=== PATIENT | female | born 1990 | race Caucasian/White ===

== ENCOUNTER 2017-10-13 01:53 | Inpatient (IN) | payer OTHER ==
[2017-10-13] MEDS: CEFEPIME 2GM/50 ML (PMX) 50 ML IVPB (02:51)
[2017-10-13] MEDS: SOD CHLORIDE 0.9% 1,000 ML IV ×3 (02:52→04:11)
[2017-10-13] MEDS: HYDROmorphONE 1 MG/ML SYG IV (02:52)
[2017-10-13] MEDS: ONDANSETRON 4 MG INJ IV (02:52)
[2017-10-13 03:02] LABS: ABNORMAL IP MESSAGE 1; HEMATOCRIT 26.3 % (37.0-47.0); HEMOGLOBIN 8.2 g/dl (12.0-16.0); MEAN CORPUSCULAR HEMOGLOBIN 27.2 pg (29.0-33.0); MEAN CORPUSCULAR HGB CONC 31.2 g/dl (32.0-37.0); MEAN CORPUSCULAR VOLUME 87.4 fl (82.0-101.0); MEAN PLATELET VOLUME 8.4 fl (7.4-10.4); PLATELET COUNT 548 10^3/UL (140-415); RED BLOOD COUNT 3.01 10^6/ul (4.20-5.40); RED CELL DISTRIBUTION WIDTH 16.2 % (11.5-14.5)
[2017-10-13 03:02] LABS: WHITE BLOOD COUNT 21.6 10^3/ul (4.8-10.8)
[2017-10-13] MEDS: VANCOMYCIN 1 GM (PMX) 250 ML IVPB (03:07)
[2017-10-13 03:08] LABS: ADD MAN DIFF? YES; POSITIVE DIFF @See below
[2017-10-13 03:21] LABS: PROTIME 15.4 Sec (11.9-14.9); PT RATIO 1.2
[2017-10-13 03:22] LABS: PARTIAL THROMBOPLASTIN TIME 45.1 Sec (25.0-35.0)
[2017-10-13 03:43] LABS: ALANINE AMINOTRANSFERASE 32 IU/L (13-69); ALBUMIN 3.2 g/dl (3.3-4.9); ALBUMIN/GLOBULIN RATIO 0.82; ALKALINE PHOSPHATASE 85 IU/L (42-121); ANION GAP 15 (8-16); ASPARTATE AMINO TRANSFERASE 49 IU/L (15-46); BILIRUBIN,INDIRECT 0.1 mg/dl (0-1.1); BILIRUBIN,TOTAL 0.1 mg/dl (0.2-1.3); BLOOD UREA NITROGEN 5 mg/dl (7-20); CARBON DIOXIDE 28 mmol/L (21-31); CHLORIDE 100 mmol/L (97-110); CREATININE 0.63 mg/dl (0.44-1.00); GLUCOSE 99 mg/dl (70-220); POTASSIUM 3.4 mmol/L (3.5-5.1); SODIUM 140 mmol/L (135-144); TOTAL PROTEIN 7.1 g/dl (6.1-8.1)
[2017-10-13 04:02] LABS: BAND NEUTROPHILS #M 1.2 10^3/ul (0.0-0.6); BAND NEUTROPHILS % (M) 6 % (0-4); EOSINOPHILS % (M) 28 % (0-7); LYMPHOCYTES #M 3.8 10^3/ul (0.8-2.9); LYMPHOCYTES % (M) 18 % (15-51); PLATELET ESTIMATE INCREASED; SEG NEUT #M 10.8 10^3/ul (1.7-7.5); SEGMENTED NEUTROPHILS (M) % 49 % (39-77)
[2017-10-13] MEDS: IOHEXOL 300MG/ML 150 ML BTL (04:23)
[2017-10-13] MEDS: SOD CHLORIDE 0.9% 100 ML (04:23)
[2017-10-13] MEDS ORDERED: VANCOMYCIN IV PER PHARMACY XX (04:30)
[2017-10-13] MEDS ORDERED: ONDANSETRON 4 MG INJ IV (04:30)
[2017-10-13] MEDS ORDERED: ONDANSETRON 4 MG TAB PO (04:30)
[2017-10-13] MEDS ORDERED: ACETAMINOPHEN 325 MG TAB PO (04:30)
[2017-10-13] MEDS ORDERED: NACL 0.9% 3 ML SYG IV (04:30)
[2017-10-13 05:04] LABS: IMMEDIATE SPIN CROSSMATCH 1 8
[2017-10-13] MEDS: PIPER-TAZO 3.375 GM IV (PMX) 100 ML IVPB ×3 (06:30→21:17)
[2017-10-13] MEDS: LORAZEPAM 2 MG INJ IV (08:30)
[2017-10-13] MEDS: VANCOMYCIN 1 GM 250 ML IVPB ×2 (10:00→21:17)
[2017-10-13 14:09] LABS: WHITE BLOOD COUNT 16.5 10^3/ul (4.8-10.8)
[2017-10-13 14:09] LABS: ABNORMAL IP MESSAGE 1; HEMATOCRIT 21.1 % (37.0-47.0); MEAN CORPUSCULAR HEMOGLOBIN 28.5 pg (29.0-33.0); MEAN CORPUSCULAR HGB CONC 32.7 g/dl (32.0-37.0); MEAN CORPUSCULAR VOLUME 87.2 fl (82.0-101.0); MEAN PLATELET VOLUME 8.5 fl (7.4-10.4); PLATELET COUNT 370 10^3/UL (140-415); POSITIVE DIFF @See below; RED BLOOD COUNT 2.42 10^6/ul (4.20-5.40); RED CELL DISTRIBUTION WIDTH 15.6 % (11.5-14.5)
[2017-10-13 14:12] LABS: HEMOGLOBIN 6.9 g/dl (12.0-16.0)
[2017-10-13 14:13] LABS: ADD MAN DIFF? YES
[2017-10-13 14:17] LABS: HEMOGLOBIN A1C 5.2 % (0-5.9)
[2017-10-13 14:36] LABS: CHOL/HDL RATIO 4.9 RATIO; CHOLESTEROL 103 mg/dl (100-200); HDL CHOLESTEROL 21 mg/dl (33-83); LDL CHOLESTEROL,CALCULATED 68 mg/dl; TRIGLYCERIDES 69 mg/dl (0-149)
[2017-10-13 14:36] LABS: MAGNESIUM 1.7 mg/dl (1.7-2.5)
[2017-10-13 15:38] LABS: HEMATOCRIT 21.8 % (37.0-47.0); HEMOGLOBIN 7.1 g/dl (12.0-16.0)
[2017-10-13 16:31] LABS: CARCINOEMBRYONIC ANTIGEN < 0.3 ng/ml (0.0-5.0)
[2017-10-13] MEDS: morphine 2 MG INJ IV (17:49)
[2017-10-13 18:02] LABS: CANCER ANTIGEN 125 < 5.5 U/ml (0.0-35.0)
[2017-10-13 18:04] LABS: CANCER ANTIGEN 19-9 < 1.4 U/ml (0.0-37.0)
[2017-10-13] MEDS ORDERED: ONDANSETRON 4 MG INJ (19:11)
[2017-10-13] MEDS ORDERED: LIDOCAINE 1% (MDV) 20 ML INJ (19:12)
[2017-10-13 20:51] LABS: AADO2 Arterial 20.7 mmHg (7.0-24.0); Allen Test ACCEPTAB; Arterial Base Excess 0.4 mmol/L (-3.0-3); Arterial Blood Gas Oxygen Sat 98.7 mmHG (95.0-98.0); Arterial COHb 0.3 % (0.0-3.0); Arterial Fraction of Oxyhgb 97.7 % (93.0-99.0); Arterial HCO3 23.5 mmol/L (22.0-26.0); Arterial MetHb 0.7 % (0.0-1.5); Arterial Total Hemglobin 7.8 g/dl (12.0-18.0); Arterial pCO2 31.6 mmhg (35-45); MODE NASAL CANNULA; Site Right Radial
[2017-10-13] MEDS: NORepinephrine 8MG/250 ML (PMX 250 ML IV (21:25)
[2017-10-13 22:22] LABS: INR 1.38; PROTIME 17.2 Sec (11.9-14.9); PT RATIO 1.3
[2017-10-13 22:23] LABS: PARTIAL THROMBOPLASTIN TIME 43.1 Sec (25.0-35.0)
[2017-10-13 22:24] LABS: ANION GAP 11 (8-16); BLOOD UREA NITROGEN 4 mg/dl (7-20); CALCIUM 7.9 mg/dl (8.4-10.2); CARBON DIOXIDE 24 mmol/L (21-31); CHLORIDE 104 mmol/L (97-110); GLUCOSE 148 mg/dl (70-220); MAGNESIUM 1.6 mg/dl (1.7-2.5); PHOSPHORUS 3.7 mg/dl (2.5-4.9); POTASSIUM 4.1 mmol/L (3.5-5.1); SODIUM 135 mmol/L (135-144)
[2017-10-13 23:19] LABS: ANISOCYTOSIS 1+ (0-0); BAND NEUTROPHILS #M 0.1 10^3/ul (0.0-0.6); BAND NEUTROPHILS % (M) 1 % (0-4); EOSINOPHILS % (M) 26 % (0-7); ERYTHROBLAST% (NRBC) (M) 1 % (0-0); HYPOCHROMASIA 2+ (0-0); LYMPHOCYTES #M 2.8 10^3/ul (0.8-2.9); LYMPHOCYTES % (M) 17 % (15-51); MONOCYTE #M 1.1 10^3/ul (0.3-0.9); MONOCYTES % (M) 7 % (0-11); PLATELET ESTIMATE NORMAL; POIKILOCYTOSIS 1+ (0-0); POLYCHROMASIA 3+ (0-0); SEG NEUT #M 8.1 10^3/ul (1.7-7.5); SEGMENTED NEUTROPHILS (M) % 49 % (39-77); SMUDGE%M 1 % (0-0)
[2017-10-13 23:29] LABS: ABNORMAL IP MESSAGE 1; HEMATOCRIT 18.8 % (37.0-47.0); MEAN CORPUSCULAR HEMOGLOBIN 29.4 pg (29.0-33.0); MEAN CORPUSCULAR HGB CONC 33.5 g/dl (32.0-37.0); MEAN CORPUSCULAR VOLUME 87.9 fl (82.0-101.0); MEAN PLATELET VOLUME 8.8 fl (7.4-10.4); PLATELET COUNT 359 10^3/UL (140-415); RED BLOOD COUNT 2.14 10^6/ul (4.20-5.40); RED CELL DISTRIBUTION WIDTH 14.7 % (11.5-14.5)
[2017-10-13 23:29] LABS: WHITE BLOOD COUNT 20.7 10^3/ul (4.8-10.8)
[2017-10-13 23:33] LABS: POSITIVE DIFF @See below
[2017-10-13 23:36] LABS: ADD MAN DIFF? YES; HEMOGLOBIN 6.3 g/dl (12.0-16.0)
[2017-10-14] MEDS: FUROSEMIDE 20 MG INJ IV (03:43)
[2017-10-14] MEDS: VANCOMYCIN 1 GM 250 ML IVPB ×2 (03:44→10:00)
[2017-10-14] MEDS: PIPER-TAZO 3.375 GM IV (PMX) 100 ML IVPB ×2 (06:17→20:07)
[2017-10-14 07:17] LABS: ABNORMAL IP MESSAGE 1; HEMATOCRIT 24.6 % (37.0-47.0); HEMOGLOBIN 8.5 g/dl (12.0-16.0); MEAN CORPUSCULAR HEMOGLOBIN 29.3 pg (29.0-33.0); MEAN CORPUSCULAR HGB CONC 34.6 g/dl (32.0-37.0); MEAN CORPUSCULAR VOLUME 84.8 fl (82.0-101.0); MEAN PLATELET VOLUME 8.5 fl (7.4-10.4); PLATELET COUNT 247 10^3/UL (140-415)
[2017-10-14 07:17] LABS: WHITE BLOOD COUNT 19.3 10^3/ul (4.8-10.8)
[2017-10-14 07:31] LABS: IRON 25 ug/dl (35-150)
[2017-10-14 07:32] LABS: ALANINE AMINOTRANSFERASE 28 IU/L (13-69); ALBUMIN 2.2 g/dl (3.3-4.9); ALKALINE PHOSPHATASE 51 IU/L (42-121); ANION GAP 11 (8-16); ASPARTATE AMINO TRANSFERASE 47 IU/L (15-46); BILIRUBIN,INDIRECT 0.3 mg/dl (0-1.1); BILIRUBIN,TOTAL 0.3 mg/dl (0.2-1.3); BLOOD UREA NITROGEN 10 mg/dl (7-20); CALCIUM 7.8 mg/dl (8.4-10.2); CARBON DIOXIDE 24 mmol/L (21-31); CHLORIDE 104 mmol/L (97-110); CREATININE 1.16 mg/dl (0.44-1.00); GLUCOSE 94 mg/dl (70-220); POTASSIUM 4.3 mmol/L (3.5-5.1); SODIUM 135 mmol/L (135-144); TOTAL PROTEIN 5.3 g/dl (6.1-8.1)
[2017-10-14 07:37] LABS: ADD MAN DIFF? YES; POSITIVE DIFF @See below
[2017-10-14 07:40] LABS: % IRON SATURATION 14 % SAT (22-52); TOTAL IRON BINDING CAPACITY 184 ug/dl (241-421)
[2017-10-14 08:05] LABS: FERRITIN 88.9 ng/ml (6.2-137.0)
[2017-10-14 10:14] LABS: VANCOMYCIN,TROUGH 31.6 ug/ml (10.0-20.0)
[2017-10-14 10:22] LABS: ANISOCYTOSIS 1+ (0-0); BAND NEUTROPHILS #M 0.9 10^3/ul (0.0-0.6); BAND NEUTROPHILS % (M) 5 % (0-4); EOSINOPHILS % (M) 16 % (0-7); LYMPHOCYTES % (M) 16 % (15-51); MICROCYTOSIS 1+ (0-0); MONOCYTE #M 1.9 10^3/ul (0.3-0.9); MONOCYTES % (M) 10 % (0-11); PLATELET ESTIMATE NORMAL; POLYCHROMASIA 3+ (0-0); REACTIVE LYMPHOCYTES #M 0.1 10^3/ul (0.0-0.0); REACTIVE LYMPHOCYTES% (M) 1 % (0-0); SEG NEUT #M 10.2 10^3/ul (1.7-7.5); SEGMENTED NEUTROPHILS (M) % 52 % (39-77); SMUDGE%M 5 % (0-0)
[2017-10-14 13:07] LABS: HEMATOCRIT 24.8 % (37.0-47.0); HEMOGLOBIN 8.5 g/dl (12.0-16.0)
[2017-10-14 16:56] LABS: HEMATOCRIT 23.8 % (37.0-47.0); HEMOGLOBIN 8.2 g/dl (12.0-16.0)
[2017-10-14] MEDS: SOD CHLORIDE 0.9% 1,000 ML IV (20:07)
[2017-10-14] MEDS: LORAZEPAM 2 MG INJ IV (21:11)
[2017-10-14 22:44] LABS: HEMATOCRIT 23.6 % (37.0-47.0); HEMOGLOBIN 8.1 g/dl (12.0-16.0)
[2017-10-15 04:37] LABS: ADD MAN DIFF? NO
[2017-10-15 04:42] LABS: ABNORMAL IP MESSAGE 1; BASOPHIL # 0.1 10^3/ul (0.0-0.1); BASOPHILS % 0.3 % (0.0-2.0); EOSINOPHILS # 6.3 10^3/ul (0.0-0.5); EOSINOPHILS % 26.9 % (0.0-7.0); HEMATOCRIT 24.4 % (37.0-47.0); HEMOGLOBIN 8.3 g/dl (12.0-16.0); LYMPHOCYTES # 3.2 10^3/ul (0.8-2.9); LYMPHOCYTES % 13.7 % (15.0-51.0); MEAN CORPUSCULAR HEMOGLOBIN 28.9 pg (29.0-33.0); MEAN PLATELET VOLUME 8.9 fl (7.4-10.4); MONOCYTE # 1.7 10^3/ul (0.3-0.9); MONOCYTES % 7.3 % (0.0-11.0); NEUTROPHIL # 11.8 10^3/ul (1.6-7.5); NEUTROPHILS % 50.8 % (39.0-77.0); PLATELET COUNT 303 10^3/UL (140-415); RED BLOOD COUNT 2.87 10^6/ul (4.20-5.40); RED CELL DISTRIBUTION WIDTH 16.3 % (11.5-14.5)
[2017-10-15 04:42] LABS: WHITE BLOOD COUNT 23.3 10^3/ul (4.8-10.8)
[2017-10-15 05:04] LABS: POSITIVE DIFF @See below
[2017-10-15 05:16] LABS: VANCOMYCIN,RANDOM 18.2 ug/ml
[2017-10-15 05:16] LABS: ANION GAP 11 (8-16); BLOOD UREA NITROGEN 17 mg/dl (7-20); CALCIUM 8.3 mg/dl (8.4-10.2); CARBON DIOXIDE 24 mmol/L (21-31); CHLORIDE 102 mmol/L (97-110); CREATININE 2.76 mg/dl (0.44-1.00); GLUCOSE 96 mg/dl (70-220); MAGNESIUM 1.7 mg/dl (1.7-2.5); PHOSPHORUS 4.2 mg/dl (2.5-4.9); POTASSIUM 4.4 mmol/L (3.5-5.1); SODIUM 133 mmol/L (135-144)
[2017-10-15] MEDS: morphine 2 MG INJ IV ×2 (06:24→17:16)
[2017-10-15] MEDS ORDERED: VANCOMYCIN 1 GM 250 ML IVPB (11:00)
[2017-10-15 11:42] LABS: CANCER ANTIGEN 15-3 4 U/mL (<32)
[2017-10-15 12:10] LABS: HEMATOCRIT 23.1 % (37.0-47.0); HEMOGLOBIN 7.7 g/dl (12.0-16.0)
[2017-10-15] MEDS: SOD CHLORIDE 0.9% 1,000 ML IV ×2 (12:14→15:30)
[2017-10-15 15:30] LABS: HEMATOCRIT 20.9 % (37.0-47.0); HEMOGLOBIN 7.1 g/dl (12.0-16.0)
[2017-10-15 18:22] LABS: ADD UMIC YES; UR ASCORBIC ACID NEGATIVE (NEGATIVE); UR BILIRUBIN (Dip) NEGATIVE (NEGATIVE); UR BLOOD (Dip) 1+ mg/dL (NEGATIVE); UR CLARITY SLIGHTLY CLOUDY (CLEAR); UR COLOR STRAW (YELLOW); UR GLUCOSE (Dip) NEGATIVE (NEGATIVE); UR KETONES (Dip) NEGATIVE (NEGATIVE); UR LEUKOCYTE ESTERASE (Dip) NEGATIVE Leu/ul (NEGATIVE); UR NITRITE (Dip) NEGATIVE (NEGATIVE); UR RBC 1 /HPF (0-5); UR SPECIFIC GRAVITY (Dip) 1.004 (1.003-1.030); UR SQUAMOUS EPITHELIAL CELL FEW /HPF (FEW); UR TOTAL PROTEIN (Dip) NEGATIVE (NEGATIVE); UR UROBILINOGEN (Dip) NEGATIVE (NEGATIVE); UR WBC 2 /HPF (0-5)
[2017-10-15 18:33] LABS: SODIUM,URINE RANDOM 18 mmol/L (30-90)
[2017-10-15 18:33] LABS: CREATININE,URINE RANDOM 41.09 mg/dl (20-320)
[2017-10-15 22:36] LABS: HEMATOCRIT 22.6 % (37.0-47.0); HEMOGLOBIN 7.7 g/dl (12.0-16.0)
[2017-10-16] MEDS: morphine 2 MG INJ IV ×3 (02:12→20:40)
[2017-10-16 05:41] LABS: ADD MAN DIFF? NO
[2017-10-16 05:46] LABS: WHITE BLOOD COUNT 20.3 10^3/ul (4.8-10.8)
[2017-10-16 05:46] LABS: ABNORMAL IP MESSAGE 1; BASOPHILS % 0.1 % (0.0-2.0); EOSINOPHILS # 5.2 10^3/ul (0.0-0.5); EOSINOPHILS % 25.8 % (0.0-7.0); HEMATOCRIT 22.1 % (37.0-47.0); HEMOGLOBIN 7.3 g/dl (12.0-16.0); LYMPHOCYTES # 2.4 10^3/ul (0.8-2.9); LYMPHOCYTES % 11.8 % (15.0-51.0); MEAN CORPUSCULAR HEMOGLOBIN 29.2 pg (29.0-33.0); MEAN CORPUSCULAR VOLUME 88.4 fl (82.0-101.0); MEAN PLATELET VOLUME 8.5 fl (7.4-10.4); MONOCYTE # 1.5 10^3/ul (0.3-0.9); MONOCYTES % 7.4 % (0.0-11.0); NEUTROPHIL # 10.9 10^3/ul (1.6-7.5); NEUTROPHILS % 53.8 % (39.0-77.0); PLATELET COUNT 276 10^3/UL (140-415); RED CELL DISTRIBUTION WIDTH 16.9 % (11.5-14.5)
[2017-10-16 05:54] LABS: POSITIVE DIFF @See below
[2017-10-16 06:25] LABS: ANION GAP 11 (8-16); BLOOD UREA NITROGEN 24 mg/dl (7-20); CARBON DIOXIDE 24 mmol/L (21-31); CHLORIDE 104 mmol/L (97-110); CREATININE 3.85 mg/dl (0.44-1.00); GLUCOSE 104 mg/dl (70-220); MAGNESIUM 1.8 mg/dl (1.7-2.5); PHOSPHORUS 5.2 mg/dl (2.5-4.9); POTASSIUM 4.3 mmol/L (3.5-5.1); SODIUM 135 mmol/L (135-144)
[2017-10-16] MEDS: SOD CHLORIDE 0.9% 1,000 ML IV ×2 (09:44→20:32)
[2017-10-17] MEDS: SOD CHLORIDE 0.9% 1,000 ML IV ×5 (01:30→23:22)
[2017-10-17] MEDS: morphine 2 MG INJ IV ×3 (01:58→20:48)
[2017-10-17 05:53] LABS: ADD MAN DIFF? NO
[2017-10-17 06:09] LABS: ABNORMAL IP MESSAGE 1; BASOPHILS % 0.2 % (0.0-2.0); EOSINOPHILS # 5.7 10^3/ul (0.0-0.5); HEMATOCRIT 22.3 % (37.0-47.0); HEMOGLOBIN 7.3 g/dl (12.0-16.0); LYMPHOCYTES # 2.2 10^3/ul (0.8-2.9); LYMPHOCYTES % 10.2 % (15.0-51.0); MEAN CORPUSCULAR HEMOGLOBIN 29.2 pg (29.0-33.0); MEAN CORPUSCULAR HGB CONC 32.7 g/dl (32.0-37.0); MEAN CORPUSCULAR VOLUME 89.2 fl (82.0-101.0); MEAN PLATELET VOLUME 8.9 fl (7.4-10.4); MONOCYTE # 1.6 10^3/ul (0.3-0.9); MONOCYTES % 7.4 % (0.0-11.0); NEUTROPHIL # 12.1 10^3/ul (1.6-7.5); NEUTROPHILS % 55.5 % (39.0-77.0); PLATELET COUNT 303 10^3/UL (140-415); RED CELL DISTRIBUTION WIDTH 16.9 % (11.5-14.5)
[2017-10-17 06:09] LABS: WHITE BLOOD COUNT 21.9 10^3/ul (4.8-10.8)
[2017-10-17 06:18] LABS: POSITIVE DIFF @See below
[2017-10-17 06:20] LABS: ANION GAP 13 (8-16); BLOOD UREA NITROGEN 28 mg/dl (7-20); CALCIUM 7.8 mg/dl (8.4-10.2); CARBON DIOXIDE 22 mmol/L (21-31); CHLORIDE 103 mmol/L (97-110); CREATININE 4.11 mg/dl (0.44-1.00); GLUCOSE 84 mg/dl (70-220); MAGNESIUM 1.8 mg/dl (1.7-2.5); PHOSPHORUS 5.7 mg/dl (2.5-4.9); POTASSIUM 4.8 mmol/L (3.5-5.1); SODIUM 133 mmol/L (135-144)
[2017-10-17] MEDS ORDERED: VANCOMYCIN IV PER PHARMACY XX (11:30)
[2017-10-17] MEDS: SOD CHLORIDE 0.9% 250 ML IV* (13:57)
[2017-10-17] MEDS: CEFEPIME 2GM/50 ML (PMX) 50 ML IVPB (17:50)
[2017-10-18 01:13] LABS: IMMEDIATE SPIN CROSSMATCH 1 4
[2017-10-18 11:04] LABS: ADD MAN DIFF? NO
[2017-10-18 11:16] LABS: WHITE BLOOD COUNT 15.4 10^3/ul (4.8-10.8)
[2017-10-18 11:16] LABS: ABNORMAL IP MESSAGE 1; BASOPHILS % 0.2 % (0.0-2.0); EOSINOPHILS # 4.6 10^3/ul (0.0-0.5); HEMATOCRIT 24.3 % (37.0-47.0); LYMPHOCYTES # 1.4 10^3/ul (0.8-2.9); LYMPHOCYTES % 9.3 % (15.0-51.0); MEAN CORPUSCULAR HEMOGLOBIN 28.7 pg (29.0-33.0); MEAN CORPUSCULAR HGB CONC 32.9 g/dl (32.0-37.0); MEAN CORPUSCULAR VOLUME 87.1 fl (82.0-101.0); MEAN PLATELET VOLUME 8.9 fl (7.4-10.4); MONOCYTE # 1.3 10^3/ul (0.3-0.9); MONOCYTES % 8.3 % (0.0-11.0); NEUTROPHILS % 51.8 % (39.0-77.0); PLATELET COUNT 319 10^3/UL (140-415); RED BLOOD COUNT 2.79 10^6/ul (4.20-5.40); RED CELL DISTRIBUTION WIDTH 16.7 % (11.5-14.5)
[2017-10-18 11:25] LABS: ANION GAP 12 (8-16); BLOOD UREA NITROGEN 30 mg/dl (7-20); CARBON DIOXIDE 20 mmol/L (21-31); CHLORIDE 106 mmol/L (97-110); CREATININE 3.95 mg/dl (0.44-1.00); GLUCOSE 86 mg/dl (70-220); MAGNESIUM 1.9 mg/dl (1.7-2.5); PHOSPHORUS 6.3 mg/dl (2.5-4.9); POTASSIUM 4.4 mmol/L (3.5-5.1); SODIUM 134 mmol/L (135-144)
[2017-10-18 11:32] LABS: EOSINOPHILS % 29.6 % (0.0-7.0); POSITIVE DIFF @See below
[2017-10-18] MEDS: SOD CHLORIDE 0.9% 1,000 ML IV ×2 (12:32→21:41)
[2017-10-18] MEDS: CEFEPIME 2GM/50 ML (PMX) 50 ML IVPB (13:35)
[2017-10-18] MEDS: morphine 2 MG INJ IV ×2 (14:10→22:53)
[2017-10-18 17:21] LABS: HEMATOCRIT 25.2 % (37.0-47.0); HEMOGLOBIN 8.4 g/dl (12.0-16.0)
[2017-10-18 17:53] LABS: INR 1.27; PROTIME 16.1 Sec (11.9-14.9); PT RATIO 1.3
[2017-10-18 18:12] LABS: PARTIAL THROMBOPLASTIN TIME 47.9 Sec (25.0-35.0)
[2017-10-19] MEDS: morphine 2 MG INJ IV ×3 (04:58→18:37)
[2017-10-19 06:15] LABS: ADD MAN DIFF? NO
[2017-10-19 06:19] LABS: ABNORMAL IP MESSAGE 1; BASOPHILS % 0.1 % (0.0-2.0); EOSINOPHILS # 5.9 10^3/ul (0.0-0.5); EOSINOPHILS % 40.2 % (0.0-7.0); HEMATOCRIT 21.1 % (37.0-47.0); LYMPHOCYTES # 1.6 10^3/ul (0.8-2.9); LYMPHOCYTES % 10.7 % (15.0-51.0); MEAN CORPUSCULAR HEMOGLOBIN 28.9 pg (29.0-33.0); MEAN CORPUSCULAR HGB CONC 33.2 g/dl (32.0-37.0); MEAN CORPUSCULAR VOLUME 87.2 fl (82.0-101.0); MEAN PLATELET VOLUME 8.8 fl (7.4-10.4); MONOCYTE # 1.2 10^3/ul (0.3-0.9); MONOCYTES % 8.4 % (0.0-11.0); NEUTROPHIL # 5.8 10^3/ul (1.6-7.5); PLATELET COUNT 326 10^3/UL (140-415); RED BLOOD COUNT 2.42 10^6/ul (4.20-5.40); RED CELL DISTRIBUTION WIDTH 16.3 % (11.5-14.5)
[2017-10-19 06:19] LABS: WHITE BLOOD COUNT 14.6 10^3/ul (4.8-10.8)
[2017-10-19 06:29] LABS: POSITIVE DIFF @See below
[2017-10-19 06:56] LABS: ANION GAP 11 (8-16)
[2017-10-19 06:58] LABS: BLOOD UREA NITROGEN 28 mg/dl (7-20); CALCIUM 7.6 mg/dl (8.4-10.2); CARBON DIOXIDE 20 mmol/L (21-31); CHLORIDE 108 mmol/L (97-110); CREATININE 3.57 mg/dl (0.44-1.00); GLUCOSE 100 mg/dl (70-220); MAGNESIUM 1.9 mg/dl (1.7-2.5); PHOSPHORUS 4.9 mg/dl (2.5-4.9); POTASSIUM 4.3 mmol/L (3.5-5.1); SODIUM 135 mmol/L (135-144)
[2017-10-19] MEDS: SOD CHLORIDE 0.9% 1,000 ML IV (10:57)
[2017-10-19] MEDS: SOD CHLORIDE 0.9% 250 ML IV* (11:00)
[2017-10-19] MEDS: CEFEPIME 2GM/50 ML (PMX) 50 ML IVPB (13:24)
[2017-10-20] MEDS: morphine 2 MG INJ IV ×4 (00:18→16:49)
[2017-10-20] MEDS: SOD CHLORIDE 0.9% 1,000 ML IV ×2 (01:34→20:45)
[2017-10-20 06:43] LABS: ADD MAN DIFF? NO
[2017-10-20 06:48] LABS: WHITE BLOOD COUNT 15.5 10^3/ul (4.8-10.8)
[2017-10-20 06:48] LABS: ABNORMAL IP MESSAGE 1; BASOPHILS % 0.1 % (0.0-2.0); EOSINOPHILS # 7.1 10^3/ul (0.0-0.5); EOSINOPHILS % 46.1 % (0.0-7.0); HEMATOCRIT 28.8 % (37.0-47.0); HEMOGLOBIN 9.5 g/dl (12.0-16.0); LYMPHOCYTES # 1.9 10^3/ul (0.8-2.9); LYMPHOCYTES % 12.4 % (15.0-51.0); MEAN CORPUSCULAR HEMOGLOBIN 28.6 pg (29.0-33.0); MEAN CORPUSCULAR VOLUME 86.7 fl (82.0-101.0); MEAN PLATELET VOLUME 8.5 fl (7.4-10.4); MONOCYTE # 1.1 10^3/ul (0.3-0.9); NEUTROPHIL # 5.2 10^3/ul (1.6-7.5); NEUTROPHILS % 33.6 % (39.0-77.0); PLATELET COUNT 363 10^3/UL (140-415); RED BLOOD COUNT 3.32 10^6/ul (4.20-5.40); RED CELL DISTRIBUTION WIDTH 16.3 % (11.5-14.5)
[2017-10-20 06:56] LABS: POSITIVE DIFF @See below
[2017-10-20 07:24] LABS: ANION GAP 13 (8-16); BLOOD UREA NITROGEN 25 mg/dl (7-20); CARBON DIOXIDE 20 mmol/L (21-31); CHLORIDE 108 mmol/L (97-110); CREATININE 2.99 mg/dl (0.44-1.00); GLUCOSE 91 mg/dl (70-220); MAGNESIUM 1.8 mg/dl (1.7-2.5); PHOSPHORUS 4.2 mg/dl (2.5-4.9); POTASSIUM 4.2 mmol/L (3.5-5.1); SODIUM 137 mmol/L (135-144)
[2017-10-20] MEDS: CEFEPIME 2GM/50 ML (PMX) 50 ML IVPB (13:26)
[2017-10-20] MEDS: AZTREONAM 1 GM/NS (PMX) 50 ML IVPB (16:44)
[2017-10-21] MEDS: AZTREONAM 1 GM/NS (PMX) 50 ML IVPB ×3 (00:06→20:32)
[2017-10-21] MEDS: morphine 2 MG INJ IV ×4 (02:17→22:52)
[2017-10-21 06:40] LABS: ADD MAN DIFF? NO
[2017-10-21 06:46] LABS: ABNORMAL IP MESSAGE 1; BASOPHILS % 0.1 % (0.0-2.0); EOSINOPHILS # 8.3 10^3/ul (0.0-0.5); EOSINOPHILS % 47.3 % (0.0-7.0); HEMATOCRIT 28.8 % (37.0-47.0); HEMOGLOBIN 9.6 g/dl (12.0-16.0); LYMPHOCYTES # 2.1 10^3/ul (0.8-2.9); MEAN CORPUSCULAR HEMOGLOBIN 28.7 pg (29.0-33.0); MEAN CORPUSCULAR HGB CONC 33.3 g/dl (32.0-37.0); MEAN CORPUSCULAR VOLUME 86.2 fl (82.0-101.0); MEAN PLATELET VOLUME 8.2 fl (7.4-10.4); MONOCYTE # 1.1 10^3/ul (0.3-0.9); MONOCYTES % 6.2 % (0.0-11.0); NEUTROPHIL # 5.9 10^3/ul (1.6-7.5); NEUTROPHILS % 33.5 % (39.0-77.0); PLATELET COUNT 377 10^3/UL (140-415); RED BLOOD COUNT 3.34 10^6/ul (4.20-5.40); RED CELL DISTRIBUTION WIDTH 16.1 % (11.5-14.5)
[2017-10-21 06:46] LABS: WHITE BLOOD COUNT 17.5 10^3/ul (4.8-10.8)
[2017-10-21 06:53] LABS: POSITIVE DIFF @See below
[2017-10-21 07:27] LABS: ANION GAP 13 (8-16); BLOOD UREA NITROGEN 24 mg/dl (7-20); CALCIUM 7.6 mg/dl (8.4-10.2); CARBON DIOXIDE 17 mmol/L (21-31); CHLORIDE 108 mmol/L (97-110); CREATININE 2.37 mg/dl (0.44-1.00); GLUCOSE 92 mg/dl (70-220); MAGNESIUM 1.7 mg/dl (1.7-2.5); PHOSPHORUS 3.2 mg/dl (2.5-4.9); POTASSIUM 4.1 mmol/L (3.5-5.1); SODIUM 134 mmol/L (135-144)
[2017-10-21] MEDS: DIPHENHYDRAMINE 25 MG CAP PO ×2 (07:55→20:32)
[2017-10-21] MEDS: SOD CHLORIDE 0.9% 1,000 ML IV ×2 (10:39→18:50)
[2017-10-22] MEDS: morphine 2 MG INJ IV ×3 (04:30→22:05)
[2017-10-22 06:23] LABS: ADD MAN DIFF? NO
[2017-10-22 06:33] LABS: ABNORMAL IP MESSAGE 1; BASOPHILS % 0.1 % (0.0-2.0); EOSINOPHILS # 8.6 10^3/ul (0.0-0.5); HEMATOCRIT 29.4 % (37.0-47.0); HEMOGLOBIN 9.6 g/dl (12.0-16.0); LYMPHOCYTES # 2.3 10^3/ul (0.8-2.9); LYMPHOCYTES % 12.9 % (15.0-51.0); MEAN CORPUSCULAR HEMOGLOBIN 28.7 pg (29.0-33.0); MEAN CORPUSCULAR HGB CONC 32.7 g/dl (32.0-37.0); MEAN CORPUSCULAR VOLUME 87.8 fl (82.0-101.0); MEAN PLATELET VOLUME 8.3 fl (7.4-10.4); MONOCYTE # 1.1 10^3/ul (0.3-0.9); MONOCYTES % 5.8 % (0.0-11.0); NEUTROPHIL # 5.8 10^3/ul (1.6-7.5); NEUTROPHILS % 32.4 % (39.0-77.0); PLATELET COUNT 398 10^3/UL (140-415); RED BLOOD COUNT 3.35 10^6/ul (4.20-5.40); RED CELL DISTRIBUTION WIDTH 16.4 % (11.5-14.5)
[2017-10-22 06:51] LABS: ANION GAP 13 (8-16); BLOOD UREA NITROGEN 21 mg/dl (7-20); CALCIUM 7.8 mg/dl (8.4-10.2); CARBON DIOXIDE 19 mmol/L (21-31); CHLORIDE 108 mmol/L (97-110); CREATININE 2.07 mg/dl (0.44-1.00); GLUCOSE 90 mg/dl (70-220); MAGNESIUM 1.6 mg/dl (1.7-2.5); POTASSIUM 4.3 mmol/L (3.5-5.1); SODIUM 136 mmol/L (135-144)
[2017-10-22 06:56] LABS: EOSINOPHILS % 47.7 % (0.0-7.0); POSITIVE DIFF @See below
[2017-10-22] MEDS: AZTREONAM 1 GM/NS (PMX) 50 ML IVPB (09:03)
[2017-10-22] MEDS: DIPHENHYDRAMINE 25 MG CAP PO ×3 (09:04→15:40)
[2017-10-22] MEDS: FAMOTIDINE 20 MG TAB PO (12:52)
[2017-10-22] MEDS: MEROPENEM 1 GM/50ML(PMX) 50 ML IVPB ×2 (12:52→21:40)
[2017-10-22] MEDS: LEVOFLOXACIN 750MG/D5W (PMX) 150 ML IVPB (14:22)
[2017-10-23] MEDS: morphine 2 MG INJ IV ×2 (05:30→12:10)
[2017-10-23 06:27] LABS: ADD MAN DIFF? NO
[2017-10-23 06:30] LABS: WHITE BLOOD COUNT 21.6 10^3/ul (4.8-10.8)
[2017-10-23 06:30] LABS: ABNORMAL IP MESSAGE 1; BASOPHILS % 0.2 % (0.0-2.0); EOSINOPHILS # 9.6 10^3/ul (0.0-0.5); HEMATOCRIT 30.3 % (37.0-47.0); HEMOGLOBIN 9.8 g/dl (12.0-16.0); LYMPHOCYTES # 2.6 10^3/ul (0.8-2.9); LYMPHOCYTES % 11.8 % (15.0-51.0); MEAN CORPUSCULAR HEMOGLOBIN 28.2 pg (29.0-33.0); MEAN CORPUSCULAR HGB CONC 32.3 g/dl (32.0-37.0); MEAN CORPUSCULAR VOLUME 87.3 fl (82.0-101.0); MEAN PLATELET VOLUME 8.3 fl (7.4-10.4); MONOCYTE # 1.7 10^3/ul (0.3-0.9); MONOCYTES % 7.7 % (0.0-11.0); NEUTROPHIL # 7.5 10^3/ul (1.6-7.5); NEUTROPHILS % 34.9 % (39.0-77.0); PLATELET COUNT 388 10^3/UL (140-415); RED BLOOD COUNT 3.47 10^6/ul (4.20-5.40); RED CELL DISTRIBUTION WIDTH 16.6 % (11.5-14.5)
[2017-10-23 07:01] LABS: EOSINOPHILS % 44.5 % (0.0-7.0); POSITIVE DIFF @See below
[2017-10-23 07:08] LABS: ANION GAP 12 (8-16)
[2017-10-23 07:09] LABS: BLOOD UREA NITROGEN 18 mg/dl (7-20); CALCIUM 7.8 mg/dl (8.4-10.2); CARBON DIOXIDE 21 mmol/L (21-31); CHLORIDE 109 mmol/L (97-110); GLUCOSE 100 mg/dl (70-220); MAGNESIUM 1.4 mg/dl (1.7-2.5); PHOSPHORUS 2.1 mg/dl (2.5-4.9); POTASSIUM 4.4 mmol/L (3.5-5.1); SODIUM 138 mmol/L (135-144)
[2017-10-23] MEDS: FAMOTIDINE 20 MG TAB PO (09:07)
[2017-10-23] MEDS: MEROPENEM 1 GM/50ML(PMX) 50 ML IVPB ×2 (09:07→21:23)
[2017-10-23] MEDS: MAGNESIUM SULFATE 2 GM/50 ML 50 ML IVPB (10:30)
[2017-10-23] MEDS: SODIUM PHOSPHATE 15 MMOL in SOD CHLORIDE 0.9% 250 ML IVPB (12:35)
[2017-10-24 06:08] LABS: ADD MAN DIFF? NO
[2017-10-24 06:16] LABS: ABNORMAL IP MESSAGE 1; BASOPHILS % 0.2 % (0.0-2.0); EOSINOPHILS # 10.7 10^3/ul (0.0-0.5); HEMATOCRIT 30.3 % (37.0-47.0); LYMPHOCYTES # 3.2 10^3/ul (0.8-2.9); LYMPHOCYTES % 13.1 % (15.0-51.0); MEAN CORPUSCULAR HEMOGLOBIN 28.5 pg (29.0-33.0); MEAN CORPUSCULAR VOLUME 86.3 fl (82.0-101.0); MEAN PLATELET VOLUME 8.6 fl (7.4-10.4); MONOCYTE # 1.7 10^3/ul (0.3-0.9); MONOCYTES % 6.9 % (0.0-11.0); NEUTROPHIL # 8.4 10^3/ul (1.6-7.5); NEUTROPHILS % 34.8 % (39.0-77.0); PLATELET COUNT 402 10^3/UL (140-415); RED BLOOD COUNT 3.51 10^6/ul (4.20-5.40); RED CELL DISTRIBUTION WIDTH 16.7 % (11.5-14.5)
[2017-10-24 06:16] LABS: WHITE BLOOD COUNT 24.2 10^3/ul (4.8-10.8)
[2017-10-24 06:55] LABS: ANION GAP 11 (8-16); BLOOD UREA NITROGEN 15 mg/dl (7-20); CALCIUM 7.8 mg/dl (8.4-10.2); CARBON DIOXIDE 21 mmol/L (21-31); CHLORIDE 108 mmol/L (97-110); CREATININE 1.27 mg/dl (0.44-1.00); GLUCOSE 91 mg/dl (70-220); MAGNESIUM 1.7 mg/dl (1.7-2.5); PHOSPHORUS 2.4 mg/dl (2.5-4.9); POTASSIUM 4.4 mmol/L (3.5-5.1); SODIUM 136 mmol/L (135-144)
[2017-10-24 07:12] LABS: POSITIVE DIFF @See below
[2017-10-24 07:15] LABS: EOSINOPHILS % 44.2 % (0.0-7.0)
[2017-10-24] MEDS: NEUTRA-PHOS 250 MG PACKET PO (09:30)
[2017-10-24] MEDS: FAMOTIDINE 20 MG TAB PO (09:31)
[2017-10-25 05:41] LABS: WHITE BLOOD COUNT 20.9 10^3/ul (4.8-10.8)
[2017-10-25 05:41] LABS: ABNORMAL IP MESSAGE 1; ADD MAN DIFF? NO; BASOPHILS % 0.1 % (0.0-2.0); EOSINOPHILS # 9.6 10^3/ul (0.0-0.5); HEMATOCRIT 28.6 % (37.0-47.0); HEMOGLOBIN 9.3 g/dl (12.0-16.0); LYMPHOCYTES % 14.5 % (15.0-51.0); MEAN CORPUSCULAR HEMOGLOBIN 27.9 pg (29.0-33.0); MEAN CORPUSCULAR HGB CONC 32.5 g/dl (32.0-37.0); MEAN CORPUSCULAR VOLUME 85.9 fl (82.0-101.0); MEAN PLATELET VOLUME 8.2 fl (7.4-10.4); MONOCYTE # 1.1 10^3/ul (0.3-0.9); MONOCYTES % 5.4 % (0.0-11.0); NEUTROPHIL # 6.8 10^3/ul (1.6-7.5); NEUTROPHILS % 32.7 % (39.0-77.0); PLATELET COUNT 389 10^3/UL (140-415); RED BLOOD COUNT 3.33 10^6/ul (4.20-5.40); RED CELL DISTRIBUTION WIDTH 16.7 % (11.5-14.5)
[2017-10-25 05:53] LABS: POSITIVE DIFF @See below
[2017-10-25 06:27] LABS: ANION GAP 9 (8-16)
[2017-10-25 06:39] LABS: BLOOD UREA NITROGEN 13 mg/dl (7-20); CARBON DIOXIDE 25 mmol/L (21-31); CHLORIDE 109 mmol/L (97-110); CREATININE 0.99 mg/dl (0.44-1.00); GLUCOSE 82 mg/dl (70-220); POTASSIUM 4.2 mmol/L (3.5-5.1); SODIUM 139 mmol/L (135-144)
[2017-10-25 06:40] LABS: MAGNESIUM 1.4 mg/dl (1.7-2.5); PHOSPHORUS 2.1 mg/dl (2.5-4.9)
[2017-10-25] MEDS: HYDROmorphONE 1 MG/ML SYG IV ×5 (10:23→19:34)
[2017-10-25] MEDS: ONDANSETRON 4 MG INJ IV (10:23)
[2017-10-25] MEDS: MAGNESIUM SULFATE 2 GM/50 ML 50 ML IVPB (10:28)
[2017-10-25] MEDS: LIDOCAINE 1% (MPF) 5 ML VIAL SC (13:00)
[2017-10-25] MEDS: SOD CHLORIDE 0.9% 100 ML (13:20)
[2017-10-25] MEDS: POTASSIUM PHOSPHATE 20 MEQ in SOD CHLORIDE 0.9% 250 ML IVPB (13:41)
[2017-10-25] MEDS ORDERED: POTASSIUM PHOSPHATE 30 MEQ in SOD CHLORIDE 0.9% 250 ML IVPB (14:00)
[2017-10-25] MEDS ORDERED: NEUTRA-PHOS 250 MG PACKET PO (14:00)
[2017-10-25] MEDS ORDERED: MAGNESIUM SULFATE 3 GM in DEXTROSE 5% 100 ML IVPB (14:00)
[2017-10-26 05:16] LABS: ABNORMAL IP MESSAGE 1; HEMATOCRIT 28.2 % (37.0-47.0); HEMOGLOBIN 9.2 g/dl (12.0-16.0); MEAN CORPUSCULAR HEMOGLOBIN 28.5 pg (29.0-33.0); MEAN CORPUSCULAR HGB CONC 32.6 g/dl (32.0-37.0); MEAN CORPUSCULAR VOLUME 87.3 fl (82.0-101.0); MEAN PLATELET VOLUME 8.3 fl (7.4-10.4); PLATELET COUNT 349 10^3/UL (140-415); RED BLOOD COUNT 3.23 10^6/ul (4.20-5.40); RED CELL DISTRIBUTION WIDTH 16.6 % (11.5-14.5)
[2017-10-26 05:16] LABS: WHITE BLOOD COUNT 25.9 10^3/ul (4.8-10.8)
[2017-10-26 05:36] LABS: ANION GAP 11 (8-16); BLOOD UREA NITROGEN 12 mg/dl (7-20); CALCIUM 7.9 mg/dl (8.4-10.2); CARBON DIOXIDE 23 mmol/L (21-31); CHLORIDE 108 mmol/L (97-110); CREATININE 0.82 mg/dl (0.44-1.00); GLUCOSE 122 mg/dl (70-220); MAGNESIUM 1.5 mg/dl (1.7-2.5); PHOSPHORUS 2.4 mg/dl (2.5-4.9); POTASSIUM 4.4 mmol/L (3.5-5.1); SODIUM 138 mmol/L (135-144)
[2017-10-26 05:45] LABS: ADD MAN DIFF? YES; POSITIVE DIFF @See below
[2017-10-26 07:50] LABS: BAND NEUTROPHILS #M 1.8 10^3/ul (0.0-0.6); BAND NEUTROPHILS % (M) 7 % (0-4); BURR CELLS 1+ (0-0); EOSINOPHILS % (M) 32 % (0-7); LYMPHOCYTES #M 2.5 10^3/ul (0.8-2.9); LYMPHOCYTES % (M) 10 % (15-51); MONOCYTES % (M) 4 % (0-11); PLATELET ESTIMATE NORMAL; POIKILOCYTOSIS 1+ (0-0); POLYCHROMASIA 1+ (0-0); SEG NEUT #M 12.6 10^3/ul (1.6-7.5); SEGMENTED NEUTROPHILS (M) % 47 % (39-77); SMUDGE%M 27 % (0-0)
[2017-10-26] MEDS: MAGNESIUM SULFATE 2 GM/50 ML 50 ML IVPB (09:30)
[2017-10-26] MEDS: HYDROmorphONE 1 MG/ML SYG IV ×3 (09:31→23:02)
[2017-10-26] MEDS: POTASSIUM PHOSPHATE 20 MEQ in SOD CHLORIDE 0.9% 250 ML IVPB (12:14)
[2017-10-26] MEDS: SOD CHLORIDE 0.9% 1,000 ML IV (22:56)
[2017-10-26] MEDS: DIPHENHYDRAMINE 50 MG INJ IV (22:56)
[2017-10-26] MEDS: ONDANSETRON INJ 16 MG, DEXAMETHASONE 10 MG/ML 10 MG in DEXTROSE 5% 50 ML IV (23:53)
[2017-10-27] MEDS: MULTIVITAMINS THERAPEUTIC TAB PO ×2 (00:27→08:42)
[2017-10-27] MEDS: SOD CHLORIDE 0.9% IV ×6 (00:29→23:57)
[2017-10-27] MEDS: DOXORUBICIN IV ×2 (00:29→23:22)
[2017-10-27] MEDS: MESNA IV ×2 (02:00→04:50)
[2017-10-27] MEDS: IFOSFAMIDE IV ×2 (02:03→23:57)
[2017-10-27] MEDS ORDERED: LORAZEPAM 2 MG INJ IV (02:45)
[2017-10-27] MEDS: HYDROmorphONE 1 MG/ML SYG IV ×4 (04:59→22:22)
[2017-10-27 05:08] LABS: ADD MAN DIFF? NO
[2017-10-27 05:11] LABS: ABNORMAL IP MESSAGE 1; BASOPHIL # 0.1 10^3/ul (0.0-0.1); BASOPHILS % 0.2 % (0.0-2.0); EOSINOPHILS # 7.3 10^3/ul (0.0-0.5); HEMOGLOBIN 9.3 g/dl (12.0-16.0); LYMPHOCYTES # 2.1 10^3/ul (0.8-2.9); LYMPHOCYTES % 8.6 % (15.0-51.0); MEAN CORPUSCULAR HEMOGLOBIN 27.7 pg (29.0-33.0); MEAN CORPUSCULAR HGB CONC 32.1 g/dl (32.0-37.0); MEAN CORPUSCULAR VOLUME 86.3 fl (82.0-101.0); MEAN PLATELET VOLUME 8.6 fl (7.4-10.4); MONOCYTE # 0.8 10^3/ul (0.3-0.9); MONOCYTES % 3.3 % (0.0-11.0); NEUTROPHIL # 13.2 10^3/ul (1.6-7.5); NEUTROPHILS % 54.7 % (39.0-77.0); PLATELET COUNT 298 10^3/UL (140-415); RED BLOOD COUNT 3.36 10^6/ul (4.20-5.40); RED CELL DISTRIBUTION WIDTH 16.7 % (11.5-14.5)
[2017-10-27 05:11] LABS: WHITE BLOOD COUNT 24.2 10^3/ul (4.8-10.8)
[2017-10-27 05:22] LABS: POSITIVE DIFF @See below
[2017-10-27] MEDS: SOD CHLORIDE 0.9% 1,000 ML IV ×3 (08:46→18:48)
[2017-10-27 16:22] LABS: ADD UMIC YES; UR ASCORBIC ACID 40 mg/dL (NEGATIVE); UR BACTERIA FEW /HPF (NONE SEEN); UR BILIRUBIN (Dip) NEGATIVE (NEGATIVE); UR BLOOD (Dip) NEGATIVE (NEGATIVE); UR CLARITY SLIGHTLY CLOUDY (CLEAR); UR COLOR YELLOW (YELLOW); UR GLUCOSE (Dip) NEGATIVE (NEGATIVE); UR KETONES (Dip) 1+ mg/dL (NEGATIVE); UR LEUKOCYTE ESTERASE (Dip) 1+ Leu/ul (NEGATIVE); UR NITRITE (Dip) NEGATIVE (NEGATIVE); UR RBC 5 /HPF (0-5); UR SPECIFIC GRAVITY (Dip) 1.016 (1.003-1.030); UR SQUAMOUS EPITHELIAL CELL MODERATE /HPF (FEW); UR TOTAL PROTEIN (Dip) NEGATIVE (NEGATIVE); UR UROBILINOGEN (Dip) NEGATIVE (NEGATIVE); UR WBC 38 /HPF (0-5)
[2017-10-27] MEDS: DIPHENHYDRAMINE 50 MG INJ IV (22:22)
[2017-10-27] MEDS: ONDANSETRON INJ 16 MG, DEXAMETHASONE 10 MG/ML 10 MG in DEXTROSE 5% 50 ML IV (22:34)
[2017-10-28] MEDS: SOD CHLORIDE 0.9% IV ×2 (01:00→11:31)
[2017-10-28] MEDS: MESNA IV ×2 (01:00→11:31)
[2017-10-28 05:53] LABS: ADD MAN DIFF? NO
[2017-10-28 06:02] LABS: WHITE BLOOD COUNT 21.2 10^3/ul (4.8-10.8)
[2017-10-28 06:02] LABS: ABNORMAL IP MESSAGE 1; BASOPHILS % 0.2 % (0.0-2.0); EOSINOPHILS # 2.3 10^3/ul (0.0-0.5); HEMATOCRIT 26.6 % (37.0-47.0); HEMOGLOBIN 8.4 g/dl (12.0-16.0); LYMPHOCYTES # 2.2 10^3/ul (0.8-2.9); LYMPHOCYTES % 10.4 % (15.0-51.0); MEAN CORPUSCULAR HEMOGLOBIN 27.8 pg (29.0-33.0); MEAN CORPUSCULAR HGB CONC 31.6 g/dl (32.0-37.0); MEAN CORPUSCULAR VOLUME 88.1 fl (82.0-101.0); MEAN PLATELET VOLUME 9.1 fl (7.4-10.4); MONOCYTES % 4.7 % (0.0-11.0); NEUTROPHIL # 14.8 10^3/ul (1.6-7.5); NEUTROPHILS % 69.6 % (39.0-77.0); PLATELET COUNT 291 10^3/UL (140-415); RED BLOOD COUNT 3.02 10^6/ul (4.20-5.40); RED CELL DISTRIBUTION WIDTH 16.8 % (11.5-14.5)
[2017-10-28 06:30] LABS: POSITIVE DIFF @See below
[2017-10-28 06:35] LABS: ANION GAP 10 (8-16); BLOOD UREA NITROGEN 15 mg/dl (7-20); CALCIUM 7.7 mg/dl (8.4-10.2); CARBON DIOXIDE 24 mmol/L (21-31); CHLORIDE 108 mmol/L (97-110); GLUCOSE 120 mg/dl (70-220); MAGNESIUM 1.4 mg/dl (1.7-2.5); PHOSPHORUS 3.4 mg/dl (2.5-4.9); POTASSIUM 5.1 mmol/L (3.5-5.1); SODIUM 137 mmol/L (135-144)
[2017-10-28] MEDS: MULTIVITAMINS THERAPEUTIC TAB PO (09:26)
[2017-10-28] MEDS: HYDROmorphONE 1 MG/ML SYG IV ×2 (10:39→20:32)
[2017-10-28] MEDS: MAGNESIUM SULFATE 2 GM/50 ML 50 ML IVPB (11:36)
[2017-10-28] MEDS: SOD CHLORIDE 0.9% 1,000 ML IV ×2 (14:00→20:11)
[2017-10-28 19:28] LABS: ADD UMIC YES; UR ASCORBIC ACID 40 mg/dL (NEGATIVE); UR BILIRUBIN (Dip) NEGATIVE (NEGATIVE); UR BLOOD (Dip) NEGATIVE (NEGATIVE); UR CLARITY CLEAR (CLEAR); UR COLOR YELLOW (YELLOW); UR GLUCOSE (Dip) NEGATIVE (NEGATIVE); UR KETONES (Dip) 1+ mg/dL (NEGATIVE); UR LEUKOCYTE ESTERASE (Dip) TRACE Leu/ul (NEGATIVE); UR NITRITE (Dip) NEGATIVE (NEGATIVE); UR RBC 5 /HPF (0-5); UR SPECIFIC GRAVITY (Dip) 1.012 (1.003-1.030); UR SQUAMOUS EPITHELIAL CELL FEW /HPF (FEW); UR TOTAL PROTEIN (Dip) NEGATIVE (NEGATIVE); UR UROBILINOGEN (Dip) NEGATIVE (NEGATIVE); UR WBC 44 /HPF (0-5)
[2017-10-28] MEDS: ACETAMINOPHEN 325 MG TAB PO (20:11)
[2017-10-28] MEDS: DIPHENHYDRAMINE 50 MG INJ IV (22:03)
[2017-10-28] MEDS: ONDANSETRON INJ 16 MG, DEXAMETHASONE 10 MG/ML 10 MG in DEXTROSE 5% 50 ML IV (22:03)
[2017-10-28] MEDS: SOD CHLORIDE 0.9% 500 ML IV (23:26)
[2017-10-29] MEDS: ALBUMIN HUMAN 5% 250 ML IV ×2 (01:25→03:58)
[2017-10-29 02:21] LABS: ADD UMIC YES; UR ASCORBIC ACID 40 mg/dL (NEGATIVE); UR BACTERIA FEW /HPF (NONE SEEN); UR BILIRUBIN (Dip) NEGATIVE (NEGATIVE); UR BLOOD (Dip) 1+ mg/dL (NEGATIVE); UR CLARITY SLIGHTLY CLOUDY (CLEAR); UR COLOR YELLOW (YELLOW); UR GLUCOSE (Dip) NEGATIVE (NEGATIVE); UR KETONES (Dip) 1+ mg/dL (NEGATIVE); UR LEUKOCYTE ESTERASE (Dip) 2+ Leu/ul (NEGATIVE); UR NITRITE (Dip) NEGATIVE (NEGATIVE); UR NONSQUAMOUS EPITHELIAL CELL 1 /HPF (NONE SEEN); UR RBC 9 /HPF (0-5); UR TOTAL PROTEIN (Dip) NEGATIVE (NEGATIVE); UR UROBILINOGEN (Dip) NEGATIVE (NEGATIVE); UR WBC 54 /HPF (0-5)
[2017-10-29] MEDS: SOD CHLORIDE 0.9% 1,000 ML IV ×5 (02:34→20:00)
[2017-10-29] MEDS: SOD CHLORIDE 0.9% 500 ML IV (05:55)
[2017-10-29 06:14] LABS: ADD MAN DIFF? NO
[2017-10-29 06:19] LABS: BASOPHILS % 0.1 % (0.0-2.0); EOSINOPHILS # 1.4 10^3/ul (0.0-0.5); EOSINOPHILS % 9.9 % (0.0-7.0); HEMATOCRIT 25.9 % (37.0-47.0); HEMOGLOBIN 8.3 g/dl (12.0-16.0); LYMPHOCYTES # 1.3 10^3/ul (0.8-2.9); LYMPHOCYTES % 9.2 % (15.0-51.0); MEAN CORPUSCULAR HEMOGLOBIN 27.9 pg (29.0-33.0); MEAN CORPUSCULAR VOLUME 87.2 fl (82.0-101.0); MEAN PLATELET VOLUME 8.9 fl (7.4-10.4); MONOCYTE # 0.7 10^3/ul (0.3-0.9); MONOCYTES % 5.4 % (0.0-11.0); NEUTROPHILS % 73.8 % (39.0-77.0); PLATELET COUNT 295 10^3/UL (140-415); RED BLOOD COUNT 2.97 10^6/ul (4.20-5.40); RED CELL DISTRIBUTION WIDTH 17.1 % (11.5-14.5)
[2017-10-29 06:19] LABS: WHITE BLOOD COUNT 13.6 10^3/ul (4.8-10.8)
[2017-10-29 07:17] LABS: ANION GAP 11 (8-16); BLOOD UREA NITROGEN 19 mg/dl (7-20); CALCIUM 7.9 mg/dl (8.4-10.2); CARBON DIOXIDE 22 mmol/L (21-31); CHLORIDE 113 mmol/L (97-110); CREATININE 0.87 mg/dl (0.44-1.00); GLUCOSE 104 mg/dl (70-220); SODIUM 141 mmol/L (135-144)
[2017-10-29] MEDS: ACETAMINOPHEN 325 MG TAB PO (07:44)
[2017-10-29 08:14] LABS: ADD UMIC YES; UR ASCORBIC ACID 40 mg/dL (NEGATIVE); UR BILIRUBIN (Dip) NEGATIVE (NEGATIVE); UR BLOOD (Dip) 1+ mg/dL (NEGATIVE); UR CLARITY SLIGHTLY CLOUDY (CLEAR); UR COLOR YELLOW (YELLOW); UR GLUCOSE (Dip) 1+ mg/dL (NEGATIVE); UR KETONES (Dip) 1+ mg/dL (NEGATIVE); UR LEUKOCYTE ESTERASE (Dip) 1+ Leu/ul (NEGATIVE); UR NITRITE (Dip) NEGATIVE (NEGATIVE); UR NONSQUAMOUS EPITHELIAL CELL 1 /HPF (NONE SEEN); UR RBC 8 /HPF (0-5); UR SQUAMOUS EPITHELIAL CELL FEW /HPF (FEW); UR TOTAL PROTEIN (Dip) NEGATIVE (NEGATIVE); UR TRANSITIONAL EPI CELL FEW /HPF (NONE SEEN); UR UROBILINOGEN (Dip) NEGATIVE (NEGATIVE); UR WBC 42 /HPF (0-5)
[2017-10-29] MEDS: MULTIVITAMINS THERAPEUTIC TAB PO (08:33)
[2017-10-29] MEDS: HYDROmorphONE 1 MG/ML SYG IV ×2 (09:49→18:55)
[2017-10-29] MEDS: SOD CHLORIDE 0.9% IV ×3 (11:25→18:11)
[2017-10-29] MEDS: DOXORUBICIN IV (11:25)
[2017-10-29] MEDS: IFOSFAMIDE IV (12:21)
[2017-10-29 12:44] LABS: MAGNESIUM 1.7 mg/dl (1.7-2.5)
[2017-10-29] MEDS: FILGRASTIM 480 MCG INJ SC (18:10)
[2017-10-29] MEDS: MESNA IV (18:11)
[2017-10-29] MEDS: MAGNESIUM OXIDE 400 MG TAB PO (21:51)
[2017-10-30] MEDS: HYDROmorphONE 1 MG/ML SYG IV ×3 (01:23→14:27)
[2017-10-30] MEDS: SOD CHLORIDE 0.9% 1,000 ML IV ×3 (01:24→16:27)
[2017-10-30 05:11] LABS: ABNORMAL IP MESSAGE 1; HEMATOCRIT 21.5 % (37.0-47.0); MEAN CORPUSCULAR HEMOGLOBIN 28.2 pg (29.0-33.0); MEAN CORPUSCULAR HGB CONC 32.6 g/dl (32.0-37.0); MEAN CORPUSCULAR VOLUME 86.7 fl (82.0-101.0); MEAN PLATELET VOLUME 8.8 fl (7.4-10.4); PLATELET COUNT 263 10^3/UL (140-415); RED BLOOD COUNT 2.48 10^6/ul (4.20-5.40); RED CELL DISTRIBUTION WIDTH 17.2 % (11.5-14.5)
[2017-10-30 05:20] LABS: POSITIVE DIFF @See below
[2017-10-30 05:21] LABS: ADD MAN DIFF? YES; ANION GAP 11 (8-16); BLOOD UREA NITROGEN 18 mg/dl (7-20); CALCIUM 7.6 mg/dl (8.4-10.2); CARBON DIOXIDE 23 mmol/L (21-31); CHLORIDE 113 mmol/L (97-110); CREATININE 0.72 mg/dl (0.44-1.00); GLUCOSE 88 mg/dl (70-220); MAGNESIUM 1.3 mg/dl (1.7-2.5); POTASSIUM 4.3 mmol/L (3.5-5.1); SODIUM 143 mmol/L (135-144)
[2017-10-30] MEDS: MULTIVITAMINS THERAPEUTIC TAB PO (07:35)
[2017-10-30] MEDS: MAGNESIUM OXIDE 400 MG TAB PO ×2 (07:35→21:36)
[2017-10-30] MEDS: ONDANSETRON 4 MG INJ IV (07:35)
[2017-10-30 09:16] LABS: ADD UMIC YES; UR ASCORBIC ACID NEGATIVE (NEGATIVE); UR BILIRUBIN (Dip) NEGATIVE (NEGATIVE); UR BLOOD (Dip) 1+ mg/dL (NEGATIVE); UR CLARITY CLEAR (CLEAR); UR COLOR YELLOW (YELLOW); UR GLUCOSE (Dip) 1+ mg/dL (NEGATIVE); UR KETONES (Dip) NEGATIVE (NEGATIVE); UR LEUKOCYTE ESTERASE (Dip) TRACE Leu/ul (NEGATIVE); UR NITRITE (Dip) NEGATIVE (NEGATIVE); UR NONSQUAMOUS EPITHELIAL CELL 1 /HPF (NONE SEEN); UR RBC 3 /HPF (0-5); UR SPECIFIC GRAVITY (Dip) 1.009 (1.003-1.030); UR SQUAMOUS EPITHELIAL CELL FEW /HPF (FEW); UR TOTAL PROTEIN (Dip) NEGATIVE (NEGATIVE); UR UROBILINOGEN (Dip) NEGATIVE (NEGATIVE); UR WBC 13 /HPF (0-5)
[2017-10-30 09:39] LABS: ANISOCYTOSIS 1+ (0-0); BAND NEUTROPHILS #M 1.9 10^3/ul (0.0-0.6); BAND NEUTROPHILS % (M) 6 % (0-4); EOSINOPHILS % (M) 14 % (0-7); LYMPHOCYTES #M 0.6 10^3/ul (0.8-2.9); LYMPHOCYTES % (M) 2 % (15-51); MONOCYTE #M 0.3 10^3/ul (0.3-0.9); MONOCYTES % (M) 1 % (0-11); OVALOCYTES 1+ (0-0); PLATELET ESTIMATE NORMAL; POIKILOCYTOSIS 1+ (0-0); SEG NEUT #M 25.2 10^3/ul (1.6-7.5); SEGMENTED NEUTROPHILS (M) % 77 % (39-77); SMUDGE%M 10 % (0-0); TOXIC GRANULATION 1+ (0-0)
[2017-10-30] MEDS: DIPHENHYDRAMINE 50 MG INJ IV (16:26)
[2017-10-30] MEDS: ACETAMINOPHEN 325 MG TAB PO (16:26)
[2017-10-30] MEDS: METHYLPREDNISOLONE 40 MG INJ IV (16:26)
[2017-10-30] MEDS: FILGRASTIM 480 MCG INJ SC (17:00)
[2017-10-30] MEDS: SOD CHLORIDE 0.9% IV (18:54)
[2017-10-30] MEDS: MESNA IV (18:54)
[2017-10-30] MEDS: MAGNESIUM SULFATE 4 GM/100 ML 100 ML IVPB (20:05)
[2017-10-31] MEDS: SOD CHLORIDE 0.9% 1,000 ML IV ×3 (02:00→17:35)
[2017-10-31] MEDS: HYDROmorphONE 1 MG/ML SYG IV ×2 (03:00→08:23)
[2017-10-31 05:33] LABS: ABNORMAL IP MESSAGE 1; HEMOGLOBIN 8.4 g/dl (12.0-16.0); MEAN CORPUSCULAR HEMOGLOBIN 28.6 pg (29.0-33.0); MEAN CORPUSCULAR HGB CONC 33.6 g/dl (32.0-37.0); MEAN PLATELET VOLUME 8.7 fl (7.4-10.4); PLATELET COUNT 277 10^3/UL (140-415); RED BLOOD COUNT 2.94 10^6/ul (4.20-5.40); RED CELL DISTRIBUTION WIDTH 16.7 % (11.5-14.5)
[2017-10-31 05:33] LABS: WHITE BLOOD COUNT 28.6 10^3/ul (4.8-10.8)
[2017-10-31 05:40] LABS: ADD MAN DIFF? YES; POSITIVE DIFF @See below
[2017-10-31 06:13] LABS: ANION GAP 9 (8-16); BLOOD UREA NITROGEN 19 mg/dl (7-20); CALCIUM 7.9 mg/dl (8.4-10.2); CARBON DIOXIDE 22 mmol/L (21-31); CHLORIDE 112 mmol/L (97-110); CREATININE 0.79 mg/dl (0.44-1.00); GLUCOSE 91 mg/dl (70-220); MAGNESIUM 2.1 mg/dl (1.7-2.5); POTASSIUM 3.9 mmol/L (3.5-5.1); SODIUM 139 mmol/L (135-144)
[2017-10-31] MEDS: MULTIVITAMINS THERAPEUTIC TAB PO (08:23)
[2017-10-31] MEDS: MAGNESIUM OXIDE 400 MG TAB PO ×2 (08:23→20:36)
[2017-10-31 09:29] LABS: ANISOCYTOSIS 1+ (0-0); BAND NEUTROPHILS #M 0.5 10^3/ul (0.0-0.6); BAND NEUTROPHILS % (M) 2 % (0-4); EOSINOPHILS % (M) 4 % (0-7); LYMPHOCYTES #M 1.4 10^3/ul (0.8-2.9); LYMPHOCYTES % (M) 5 % (15-51); MONOCYTE #M 0.2 10^3/ul (0.3-0.9); MONOCYTES % (M) 1 % (0-11); PLATELET ESTIMATE NORMAL; POIKILOCYTOSIS 2+ (0-0); POLYCHROMASIA 2+ (0-0); REACTIVE LYMPHOCYTES #M 0.2 10^3/ul (0.0-0.0); REACTIVE LYMPHOCYTES% (M) 1 % (0-0); SEGMENTED NEUTROPHILS (M) % 87 % (39-77); SMUDGE%M 5 % (0-0)
[2017-10-31] MEDS: DIPHENHYDRAMINE 25 MG CAP PO (10:43)
[2017-10-31] MEDS: HYDROmorphONE 2 MG/ML SYG IV (14:20)
[2017-10-31] MEDS: FILGRASTIM 480 MCG INJ SC (17:36)
[2017-10-31] MEDS: ONDANSETRON 4 MG INJ IV (18:36)
[2017-10-31] MEDS: SOD CHLORIDE 0.9% IV (22:56)
[2017-10-31] MEDS: MESNA IV (22:56)
[2017-11-01 01:20] LABS: ADD UMIC YES; UR ASCORBIC ACID NEGATIVE (NEGATIVE); UR BACTERIA MANY /HPF (NONE SEEN); UR BILIRUBIN (Dip) NEGATIVE (NEGATIVE); UR BLOOD (Dip) 1+ mg/dL (NEGATIVE); UR CLARITY SLIGHTLY CLOUDY (CLEAR); UR COLOR YELLOW (YELLOW); UR GLUCOSE (Dip) 1+ mg/dL (NEGATIVE); UR KETONES (Dip) TRACE mg/dL (NEGATIVE); UR LEUKOCYTE ESTERASE (Dip) NEGATIVE Leu/ul (NEGATIVE); UR MUCUS MODERATE /HPF (NONE SEEN); UR NITRITE (Dip) NEGATIVE (NEGATIVE); UR RBC 2 /HPF (0-5); UR SPECIFIC GRAVITY (Dip) 1.011 (1.003-1.030); UR SQUAMOUS EPITHELIAL CELL FEW /HPF (FEW); UR TOTAL PROTEIN (Dip) 1+ mg/dl (NEGATIVE); UR UROBILINOGEN (Dip) NEGATIVE (NEGATIVE); UR WBC 8 /HPF (0-5)
[2017-11-01] MEDS: DIPHENHYDRAMINE 25 MG CAP PO (01:21)
[2017-11-01] MEDS: SOD CHLORIDE 0.9% 1,000 ML IV ×2 (02:41→12:32)
[2017-11-01] MEDS: HYDROmorphONE 2 MG/ML SYG IV ×2 (04:41→10:38)
[2017-11-01] MEDS: MAGNESIUM OXIDE 400 MG TAB PO ×2 (08:26→20:25)
[2017-11-01] MEDS: MULTIVITAMINS THERAPEUTIC TAB PO (08:26)
[2017-11-01 09:39] LABS: ADD UMIC YES; UR ASCORBIC ACID 40 mg/dL (NEGATIVE); UR BACTERIA FEW /HPF (NONE SEEN); UR BILIRUBIN (Dip) NEGATIVE (NEGATIVE); UR BLOOD (Dip) 1+ mg/dL (NEGATIVE); UR CLARITY CLEAR (CLEAR); UR COLOR YELLOW (YELLOW); UR GLUCOSE (Dip) NEGATIVE (NEGATIVE); UR KETONES (Dip) TRACE mg/dL (NEGATIVE); UR LEUKOCYTE ESTERASE (Dip) NEGATIVE Leu/ul (NEGATIVE); UR NITRITE (Dip) NEGATIVE (NEGATIVE); UR RBC 1 /HPF (0-5); UR SPECIFIC GRAVITY (Dip) 1.011 (1.003-1.030); UR SQUAMOUS EPITHELIAL CELL FEW /HPF (FEW); UR TOTAL PROTEIN (Dip) 1+ mg/dl (NEGATIVE); UR UROBILINOGEN (Dip) NEGATIVE (NEGATIVE); UR WBC 5 /HPF (0-5)
[2017-11-01 11:53] LABS: WHITE BLOOD COUNT 17.6 10^3/ul (4.8-10.8)
[2017-11-01 11:53] LABS: ABNORMAL IP MESSAGE 1; HEMATOCRIT 21.1 % (37.0-47.0); HEMOGLOBIN 7.1 g/dl (12.0-16.0); MEAN CORPUSCULAR HEMOGLOBIN 28.7 pg (29.0-33.0); MEAN CORPUSCULAR HGB CONC 33.6 g/dl (32.0-37.0); MEAN CORPUSCULAR VOLUME 85.4 fl (82.0-101.0); MEAN PLATELET VOLUME 8.4 fl (7.4-10.4); PLATELET COUNT 244 10^3/UL (140-415); RED BLOOD COUNT 2.47 10^6/ul (4.20-5.40); RED CELL DISTRIBUTION WIDTH 16.1 % (11.5-14.5)
[2017-11-01 12:02] LABS: ADD MAN DIFF? YES; POSITIVE DIFF @See below
[2017-11-01 12:28] LABS: BLOOD UREA NITROGEN 11 mg/dl (7-20); CALCIUM 7.9 mg/dl (8.4-10.2); CARBON DIOXIDE 23 mmol/L (21-31); CHLORIDE 110 mmol/L (97-110); CREATININE 0.65 mg/dl (0.44-1.00); GLUCOSE 89 mg/dl (70-220); SODIUM 134 mmol/L (135-144)
[2017-11-01 12:31] LABS: ANION GAP 5 (8-16); POTASSIUM 3.7 mmol/L (3.5-5.1)
[2017-11-01 13:18] LABS: ANISOCYTOSIS 1+ (0-0); BAND NEUTROPHILS #M 0.3 10^3/ul (0.0-0.6); BAND NEUTROPHILS % (M) 2 % (0-4); EOSINOPHILS % (M) 16 % (0-7); LYMPHOCYTES % (M) 6 % (15-51); MICROCYTOSIS 1+ (0-0); PLATELET ESTIMATE NORMAL; POLYCHROMASIA 1+ (0-0); SEG NEUT #M 13.4 10^3/ul (1.6-7.5); SEGMENTED NEUTROPHILS (M) % 76 % (39-77)
[2017-11-01 13:22] LABS: HEMATOCRIT 22.5 % (37.0-47.0); HEMOGLOBIN 7.4 g/dl (12.0-16.0)
[2017-11-01] MEDS: MIDAZOLAM 1 MG/ML 2 ML INJ (13:35)
[2017-11-01] MEDS: FENTAnyl 50 MCG/ML VIAL (13:35)
[2017-11-01] MEDS: PROPOFOL 0 ML (13:36)
[2017-11-01] MEDS: LIDOCAINE 100 MG SYRINGE (13:36)
[2017-11-01] MEDS: FILGRASTIM 480 MCG INJ SC (17:39)
[2017-11-01] MEDS: HYDROmorphONE 0.5 MG/0.5 ML SYG IV (20:56)
[2017-11-01 22:38] LABS: IMMEDIATE SPIN CROSSMATCH 1 4
[2017-11-02] MEDS: HYDROmorphONE 0.5 MG/0.5 ML SYG IV ×4 (02:23→20:25)
[2017-11-02] MEDS: SOD CHLORIDE 0.9% 1,000 ML IV ×2 (02:34→11:12)
[2017-11-02] MEDS: MULTIVITAMINS THERAPEUTIC TAB PO (09:06)
[2017-11-02] MEDS: MAGNESIUM OXIDE 400 MG TAB PO ×2 (09:06→20:25)
[2017-11-02 09:32] LABS: ADD UMIC YES; UR ASCORBIC ACID NEGATIVE (NEGATIVE); UR BACTERIA FEW /HPF (NONE SEEN); UR BILIRUBIN (Dip) NEGATIVE (NEGATIVE); UR BLOOD (Dip) 2+ mg/dL (NEGATIVE); UR CLARITY CLEAR (CLEAR); UR COLOR STRAW (YELLOW); UR GLUCOSE (Dip) 1+ mg/dL (NEGATIVE); UR KETONES (Dip) TRACE mg/dL (NEGATIVE); UR LEUKOCYTE ESTERASE (Dip) NEGATIVE Leu/ul (NEGATIVE); UR NITRITE (Dip) NEGATIVE (NEGATIVE); UR RBC 1 /HPF (0-5); UR SPECIFIC GRAVITY (Dip) 1.009 (1.003-1.030); UR SQUAMOUS EPITHELIAL CELL FEW /HPF (FEW); UR TOTAL PROTEIN (Dip) 1+ mg/dl (NEGATIVE); UR UROBILINOGEN (Dip) NEGATIVE (NEGATIVE); UR WBC 4 /HPF (0-5)
[2017-11-02 11:32] LABS: WHITE BLOOD COUNT 8.8 10^3/ul (4.8-10.8)
[2017-11-02 11:32] LABS: ABNORMAL IP MESSAGE 1; HEMATOCRIT 26.2 % (37.0-47.0); HEMOGLOBIN 8.8 g/dl (12.0-16.0); MEAN CORPUSCULAR HEMOGLOBIN 28.9 pg (29.0-33.0); MEAN CORPUSCULAR HGB CONC 33.6 g/dl (32.0-37.0); MEAN CORPUSCULAR VOLUME 86.2 fl (82.0-101.0); MEAN PLATELET VOLUME 9.1 fl (7.4-10.4); PLATELET COUNT 199 10^3/UL (140-415); RED BLOOD COUNT 3.04 10^6/ul (4.20-5.40); RED CELL DISTRIBUTION WIDTH 15.3 % (11.5-14.5)
[2017-11-02 11:45] LABS: POSITIVE DIFF @See below
[2017-11-02 11:46] LABS: ADD MAN DIFF? YES
[2017-11-02 12:00] LABS: ANION GAP 7 (8-16); BLOOD UREA NITROGEN 12 mg/dl (7-20); CARBON DIOXIDE 21 mmol/L (21-31); CHLORIDE 112 mmol/L (97-110); GLUCOSE 92 mg/dl (70-220); SODIUM 136 mmol/L (135-144)
[2017-11-02 12:04] LABS: MAGNESIUM 1.5 mg/dl (1.7-2.5)
[2017-11-02 12:04] LABS: PHOSPHORUS 2.3 mg/dl (2.5-4.9)
[2017-11-02 12:45] LABS: ANISOCYTOSIS 1+ (0-0); BAND NEUTROPHILS #M 0.5 10^3/ul (0.0-0.6); BAND NEUTROPHILS % (M) 6 % (0-4); BASOPHILS % (M) 1 % (0-2); EOSINOPHILS % (M) 25 % (0-7); LYMPHOCYTES #M 0.4 10^3/ul (0.8-2.9); LYMPHOCYTES % (M) 5 % (15-51); MICROCYTOSIS 1+ (0-0); PLATELET ESTIMATE NORMAL; POIKILOCYTOSIS 1+ (0-0); POLYCHROMASIA 3+ (0-0); SEG NEUT #M 5.6 10^3/ul (1.6-7.5); SEGMENTED NEUTROPHILS (M) % 63 % (39-77); SMUDGE%M 14 % (0-0)
[2017-11-02] MEDS: MAGNESIUM SULFATE 2 GM/50 ML 50 ML IVPB (14:46)
[2017-11-02] MEDS: DIPHENHYDRAMINE 25 MG CAP PO (14:56)
[2017-11-02] MEDS: POTASSIUM PHOSPHATE 20 MEQ in SOD CHLORIDE 0.9% 250 ML IVPB (17:14)
[2017-11-02] MEDS: FILGRASTIM 480 MCG INJ SC (18:03)
[2017-11-03] MEDS: SOD CHLORIDE 0.9% 1,000 ML IV
[2017-11-03] MEDS: HYDROmorphONE 0.5 MG/0.5 ML SYG IV ×2 (02:08→06:33)
[2017-11-03 05:30] LABS: WHITE BLOOD COUNT 4.8 10^3/ul (4.8-10.8)
[2017-11-03 05:30] LABS: ABNORMAL IP MESSAGE 1; HEMATOCRIT 26.2 % (37.0-47.0); HEMOGLOBIN 8.8 g/dl (12.0-16.0); MEAN CORPUSCULAR HEMOGLOBIN 28.9 pg (29.0-33.0); MEAN CORPUSCULAR HGB CONC 33.6 g/dl (32.0-37.0); MEAN CORPUSCULAR VOLUME 86.2 fl (82.0-101.0); MEAN PLATELET VOLUME 8.4 fl (7.4-10.4); PLATELET COUNT 162 10^3/UL (140-415); RED BLOOD COUNT 3.04 10^6/ul (4.20-5.40); RED CELL DISTRIBUTION WIDTH 15.2 % (11.5-14.5)
[2017-11-03 05:34] LABS: POSITIVE DIFF @See below
[2017-11-03 05:35] LABS: ADD MAN DIFF? YES
[2017-11-03 05:59] LABS: ANION GAP 6 (8-16); BLOOD UREA NITROGEN 10 mg/dl (7-20); CALCIUM 7.8 mg/dl (8.4-10.2); CARBON DIOXIDE 25 mmol/L (21-31); CHLORIDE 110 mmol/L (97-110); CREATININE 0.63 mg/dl (0.44-1.00); GLUCOSE 104 mg/dl (70-220); POTASSIUM 3.9 mmol/L (3.5-5.1); SODIUM 137 mmol/L (135-144)
[2017-11-03 07:19] LABS: UR MUCUS FEW /HPF (NONE SEEN)
[2017-11-03 08:39] LABS: ANISOCYTOSIS 1+ (0-0); BAND NEUTROPHILS #M 0.3 10^3/ul (0.0-0.6); BAND NEUTROPHILS % (M) 7 % (0-4); BASOPHILS % (M) 1 % (0-2); EOSINOPHILS % (M) 22 % (0-7); GIANT THROMBO% (M) 2 % (0-0); LYMPHOCYTES #M 0.6 10^3/ul (0.8-2.9); LYMPHOCYTES % (M) 14 % (15-51); MICROCYTOSIS 1+ (0-0); MONOCYTE #M 0.1 10^3/ul (0.3-0.9); MONOCYTES % (M) 3 % (0-11); PLATELET ESTIMATE NORMAL; POIKILOCYTOSIS 1+ (0-0); POLYCHROMASIA 3+ (0-0); SEG NEUT #M 2.6 10^3/ul (1.6-7.5); SEGMENTED NEUTROPHILS (M) % 53 % (39-77); SMUDGE%M 25 % (0-0)
[2017-11-03] MEDS: MAGNESIUM OXIDE 400 MG TAB PO (09:36)
[2017-11-03] MEDS: MULTIVITAMINS THERAPEUTIC TAB PO (09:37)
== END 2017-11-03 10:42 | disposition home health service (06) | DRG 597 ==
LOC: MS2 10-16 17:50 → MS1 10-24 17:50 → E/R 01:53 → TEL 04:12 → ICU 18:40
PROC: 02HV33Z Insertion of Infusion Device into Superior Vena Cava, Percutaneous Approach (ICD-10-PCS; principal; 2017-10-25)
PROC: 30233N1 Transfusion of Nonautologous Red Blood Cells into Peripheral Vein, Percutaneous Approach (ICD-10-PCS; 2017-10-25)
PROC: 3E04305 Introduction of Other Antineoplastic into Central Vein, Percutaneous Approach (ICD-10-PCS; 2017-10-26)
DX: C50.912 Malignant neoplasm of unspecified site of left female breast (principal); R57.1 Hypovolemic shock; N17.0 Acute kidney failure with tubular necrosis; D62 Acute posthemorrhagic anemia; E87.1 Hypo-osmolality and hyponatremia; E83.42 Hypomagnesemia; N61.1 Abscess of the breast and nipple; N64.1 Fat necrosis of breast; B96.5 Pseudomonas (aeruginosa) (mallei) (pseudomallei) as the cause of diseases classified elsewhere; R59.1 Generalized enlarged lymph nodes; R55 Syncope and collapse; E86.1 Hypovolemia; N14.1 Nephropathy induced by other drugs, medicaments and biological substances; T36.8X5A Adverse effect of other systemic antibiotics, initial encounter
CPT/HCPCS: 36415; 36430; 36569; 36600; 71045; 71260; 74176; 76641; 76775; 76937; 80048; 80053; 80061; 80202; 81001; 82378; 82540; 82728; 82803; 82962; 83036; 83540; 83735; 84100; 84155; 84300; 84443; 84703; 85014; 85018; 85025; 85610; 85730; 86300; 86301; 86304; 86850; 86900; 86901; 86920; 87040; 87070; 87081; 87086; 89190; 93005; 93306; 96374; 96375; 99285-25; J1940; J9209

== ENCOUNTER 2017-12-05 11:21 | Inpatient (IN) | payer OTHER ==
[2017-12-05] MEDS ORDERED: BISACODYL 10 MG SUPP PR (12:30)
[2017-12-05] MEDS ORDERED: HYDROCODONE/APAP (5/325) TAB PO (12:30)
[2017-12-05] MEDS ORDERED: MAGNESIUM HYDROXIDE 30ML CUP PO (12:30)
[2017-12-05] MEDS ORDERED: NACL 0.9% 3 ML SYG IV (12:30)
[2017-12-05] MEDS ORDERED: ONDANSETRON 4 MG TAB PO (12:30)
[2017-12-05] MEDS ORDERED: morphine 2 MG INJ IV (12:30)
[2017-12-05] MEDS ORDERED: DOCUSATE SODIUM 100 MG CAP PO (12:30)
[2017-12-05 12:54] LABS: ADD MAN DIFF? NO
[2017-12-05 12:57] LABS: ABNORMAL IP MESSAGE 1; BASOPHILS % 0.2 % (0.0-2.0); EOSINOPHILS # 5.9 10^3/ul (0.0-0.5); EOSINOPHILS % 33.7 % (0.0-7.0); HEMATOCRIT 26.8 % (37.0-47.0); HEMOGLOBIN 9.1 g/dl (12.0-16.0); LYMPHOCYTES # 1.8 10^3/ul (0.8-2.9); LYMPHOCYTES % 10.4 % (15.0-51.0); MEAN CORPUSCULAR HEMOGLOBIN 29.8 pg (29.0-33.0); MEAN CORPUSCULAR VOLUME 87.9 fl (82.0-101.0); MEAN PLATELET VOLUME 8.8 fl (7.4-10.4); MONOCYTE # 1.2 10^3/ul (0.3-0.9); MONOCYTES % 6.7 % (0.0-11.0); NEUTROPHIL # 8.4 10^3/ul (1.6-7.5); NEUTROPHILS % 48.1 % (39.0-77.0); PLATELET COUNT 202 10^3/UL (140-415); RED BLOOD COUNT 3.05 10^6/ul (4.20-5.40); RED CELL DISTRIBUTION WIDTH 17.8 % (11.5-14.5)
[2017-12-05 12:57] LABS: WHITE BLOOD COUNT 17.4 10^3/ul (4.8-10.8)
[2017-12-05 13:09] LABS: POSITIVE DIFF @See below
[2017-12-05 13:16] LABS: ALANINE AMINOTRANSFERASE 19 IU/L (13-69); ALBUMIN 2.8 g/dl (3.3-4.9); ALBUMIN/GLOBULIN RATIO 0.82; ALKALINE PHOSPHATASE 71 IU/L (42-121); ANION GAP 16 (8-16); ASPARTATE AMINO TRANSFERASE 23 IU/L (15-46); BLOOD UREA NITROGEN 5 mg/dl (7-20); CALCIUM 8.4 mg/dl (8.4-10.2); CARBON DIOXIDE 26 mmol/L (21-31); CHLORIDE 100 mmol/L (97-110); CREATININE 0.43 mg/dl (0.44-1.00); GLUCOSE 129 mg/dl (70-220); POTASSIUM 4.2 mmol/L (3.5-5.1); SODIUM 138 mmol/L (135-144); TOTAL PROTEIN 6.2 g/dl (6.1-8.1)
[2017-12-05 13:16] LABS: LACTATE DEHYDROGENASE 708 IU/L (313-618)
[2017-12-05] MEDS: HYDROmorphONE 2 MG TAB PO (13:25)
[2017-12-05] MEDS: SOD CHLORIDE 0.9% 1,000 ML IV (13:25)
[2017-12-05] MEDS ORDERED: METHYLPREDNISOLONE 40 MG INJ IV (18:00)
[2017-12-05] MEDS ORDERED: SOD CHLORIDE 0.9% IV ×4 (18:00)
[2017-12-05] MEDS ORDERED: DIPHENHYDRAMINE 50 MG INJ IV ×2 (18:00)
[2017-12-05] MEDS ORDERED: ONDANSETRON INJ 16 MG, DEXAMETHASONE 4 MG/ML 20 MG in DEXTROSE 5% 50 ML IV (18:00)
[2017-12-05] MEDS ORDERED: IFOSFAMIDE IV (18:00)
[2017-12-05] MEDS ORDERED: DOXORUBICIN IV (18:00)
[2017-12-05] MEDS ORDERED: MESNA IV ×2 (18:00)
[2017-12-05] MEDS: HYDROmorphONE 0.5 MG/0.5 ML SYG IV (22:05)
[2017-12-06] MEDS: SOD CHLORIDE 0.9% 1,000 ML IV ×4 (00:19→23:25)
[2017-12-06] MEDS: HYDROmorphONE 0.5 MG/0.5 ML SYG IV ×3 (03:26→21:30)
[2017-12-06] MEDS: ENOXAPARIN 40 MG/0.4 ML SYG SC (08:26)
[2017-12-07] MEDS: HYDROmorphONE 0.5 MG/0.5 ML SYG IV ×3 (03:17→19:20)
[2017-12-07] MEDS: ENOXAPARIN 40 MG/0.4 ML SYG SC (09:00)
[2017-12-07] MEDS: SOD CHLORIDE 0.9% 1,000 ML IV (11:36)
[2017-12-07] MEDS ORDERED: LIDOCAINE 1%/EPI 30 ML INJ INJ (14:47)
[2017-12-07] MEDS ORDERED: SILVER NITRATE SWAB TOP (15:00)
[2017-12-08] MEDS: HYDROmorphONE 0.5 MG/0.5 ML SYG IV ×5 (00:36→20:09)
[2017-12-08] MEDS: ENOXAPARIN 40 MG/0.4 ML SYG SC (09:00)
[2017-12-08] MEDS: DIPHENHYDRAMINE 50 MG INJ IV (16:42)
[2017-12-09] MEDS: HYDROmorphONE 0.5 MG/0.5 ML SYG IV ×2 (02:25→06:28)
[2017-12-09 05:26] LABS: ABNORMAL IP MESSAGE 1; HEMATOCRIT 30.7 % (37.0-47.0); HEMOGLOBIN 9.9 g/dl (12.0-16.0); MEAN CORPUSCULAR HEMOGLOBIN 28.8 pg (29.0-33.0); MEAN CORPUSCULAR HGB CONC 32.2 g/dl (32.0-37.0); MEAN CORPUSCULAR VOLUME 89.2 fl (82.0-101.0); MEAN PLATELET VOLUME 8.2 fl (7.4-10.4); PLATELET COUNT 215 10^3/UL (140-415); RED BLOOD COUNT 3.44 10^6/ul (4.20-5.40); RED CELL DISTRIBUTION WIDTH 18.2 % (11.5-14.5)
[2017-12-09 05:26] LABS: WHITE BLOOD COUNT 16.9 10^3/ul (4.8-10.8)
[2017-12-09] MEDS: SOD CHLORIDE 0.9% 1,000 ML IV ×3 (05:30→11:45)
[2017-12-09 05:32] LABS: POSITIVE DIFF @See below
[2017-12-09 05:33] LABS: ADD MAN DIFF? YES
[2017-12-09 05:59] LABS: ALANINE AMINOTRANSFERASE 23 IU/L (13-69); ALBUMIN 2.4 g/dl (3.3-4.9); ALBUMIN/GLOBULIN RATIO 0.72; ANION GAP 16 (8-16); ASPARTATE AMINO TRANSFERASE 21 IU/L (15-46); BLOOD UREA NITROGEN 5 mg/dl (7-20); CALCIUM 8.3 mg/dl (8.4-10.2); CARBON DIOXIDE 26 mmol/L (21-31); CHLORIDE 102 mmol/L (97-110); CREATININE 0.45 mg/dl (0.44-1.00); GLUCOSE 86 mg/dl (70-220); POTASSIUM 3.9 mmol/L (3.5-5.1); SODIUM 140 mmol/L (135-144); TOTAL PROTEIN 5.7 g/dl (6.1-8.1)
[2017-12-09 06:01] LABS: ALKALINE PHOSPHATASE 70 IU/L (42-121)
[2017-12-09] MEDS: ENOXAPARIN 40 MG/0.4 ML SYG SC (08:22)
[2017-12-09 09:23] LABS: ANISOCYTOSIS 2+ (0-0); BAND NEUTROPHILS #M 0.5 10^3/ul (0.0-0.6); BAND NEUTROPHILS % (M) 3 % (0-4); EOSINOPHILS % (M) 33 % (0-7); LYMPHOCYTES #M 2.7 10^3/ul (0.8-2.9); LYMPHOCYTES % (M) 16 % (15-51); MICROCYTOSIS 2+ (0-0); MONOCYTE #M 0.6 10^3/ul (0.3-0.9); MONOCYTES % (M) 4 % (0-11); PLATELET ESTIMATE NORMAL; POIKILOCYTOSIS 1+ (0-0); POLYCHROMASIA 3+ (0-0); SEG NEUT #M 7.5 10^3/ul (1.6-7.5); SEGMENTED NEUTROPHILS (M) % 44 % (39-77); SMUDGE%M 3 % (0-0)
[2017-12-09] MEDS: HYDROmorphONE 2 MG/ML SYG IV ×3 (10:17→21:03)
[2017-12-09 10:27] LABS: BASOPHILS % 0.2 % (0.0-2.0); EOSINOPHILS # 6.7 10^3/ul (0.0-0.5); EOSINOPHILS % 39.7 % (0.0-7.0); LYMPHOCYTES # 1.6 10^3/ul (0.8-2.9); LYMPHOCYTES % 9.3 % (15.0-51.0); MONOCYTE # 0.9 10^3/ul (0.3-0.9); MONOCYTES % 5.3 % (0.0-11.0); NEUTROPHIL # 7.5 10^3/ul (1.6-7.5)
[2017-12-09 10:54] LABS: ADD UMIC YES; UR ASCORBIC ACID NEGATIVE (NEGATIVE); UR BACTERIA FEW /HPF (NONE SEEN); UR BILIRUBIN (Dip) NEGATIVE (NEGATIVE); UR BLOOD (Dip) NEGATIVE (NEGATIVE); UR CALCIUM OXALATE CRYSTAL MANY /HPF (NONE SEEN); UR CLARITY SLIGHTLY CLOUDY (CLEAR); UR COLOR YELLOW (YELLOW); UR GLUCOSE (Dip) NEGATIVE (NEGATIVE); UR KETONES (Dip) NEGATIVE (NEGATIVE); UR LEUKOCYTE ESTERASE (Dip) NEGATIVE Leu/ul (NEGATIVE); UR MUCUS MANY /HPF (NONE SEEN); UR NITRITE (Dip) NEGATIVE (NEGATIVE); UR RBC 2 /HPF (0-5); UR SPECIFIC GRAVITY (Dip) 1.025 (1.003-1.030); UR SQUAMOUS EPITHELIAL CELL FEW /HPF (FEW); UR TOTAL PROTEIN (Dip) 1+ mg/dl (NEGATIVE); UR UROBILINOGEN (Dip) 1+ mg/dL (NEGATIVE); UR WBC 9 /HPF (0-5)
[2017-12-09] MEDS ORDERED: METHYLPREDNISOLONE 125 MG INJ IV (12:00)
[2017-12-09] MEDS: DIPHENHYDRAMINE 50 MG INJ IV (13:51)
[2017-12-09] MEDS ORDERED: MESNA IV (16:00)
[2017-12-09] MEDS ORDERED: SOD CHLORIDE 0.9% IV (16:00)
[2017-12-09] MEDS: ONDANSETRON INJ 16 MG, DEXAMETHASONE 10 MG/ML 10 MG in DEXTROSE 5% 50 ML IVPB (16:27)
[2017-12-09] MEDS: SOD CHLORIDE 0.9% IV ×4 (17:30→22:46)
[2017-12-09] MEDS: DOXORUBICIN IV (17:30)
[2017-12-09] MEDS: IFOSFAMIDE IV (21:13)
[2017-12-09] MEDS: MESNA IV ×2 (21:14→22:46)
[2017-12-10] MEDS: SOD CHLORIDE 0.9% 1,000 ML IV ×3 (00:53→23:05)
[2017-12-10] MEDS: HYDROmorphONE 2 MG/ML SYG IV ×4 (02:16→20:59)
[2017-12-10 05:15] LABS: ADD MAN DIFF? NO
[2017-12-10 05:18] LABS: BASOPHILS % 0.1 % (0.0-2.0); EOSINOPHILS # 0.1 10^3/ul (0.0-0.5); EOSINOPHILS % 0.6 % (0.0-7.0); HEMATOCRIT 25.7 % (37.0-47.0); HEMOGLOBIN 8.4 g/dl (12.0-16.0); LYMPHOCYTES # 1.2 10^3/ul (0.8-2.9); LYMPHOCYTES % 7.7 % (15.0-51.0); MEAN CORPUSCULAR HEMOGLOBIN 28.8 pg (29.0-33.0); MEAN CORPUSCULAR HGB CONC 32.7 g/dl (32.0-37.0); MEAN PLATELET VOLUME 8.4 fl (7.4-10.4); MONOCYTE # 0.9 10^3/ul (0.3-0.9); MONOCYTES % 5.4 % (0.0-11.0); NEUTROPHIL # 13.4 10^3/ul (1.6-7.5); NEUTROPHILS % 85.5 % (39.0-77.0); PLATELET COUNT 220 10^3/UL (140-415); RED BLOOD COUNT 2.92 10^6/ul (4.20-5.40); RED CELL DISTRIBUTION WIDTH 17.8 % (11.5-14.5)
[2017-12-10 05:18] LABS: WHITE BLOOD COUNT 15.7 10^3/ul (4.8-10.8)
[2017-12-10 05:41] LABS: ALANINE AMINOTRANSFERASE 14 IU/L (13-69); ALBUMIN 2.6 g/dl (3.3-4.9); ALKALINE PHOSPHATASE 69 IU/L (42-121); ANION GAP 13 (8-16); ASPARTATE AMINO TRANSFERASE 17 IU/L (15-46); BLOOD UREA NITROGEN 7 mg/dl (7-20); CALCIUM 8.3 mg/dl (8.4-10.2); CARBON DIOXIDE 27 mmol/L (21-31); CHLORIDE 102 mmol/L (97-110); CREATININE 0.48 mg/dl (0.44-1.00); GLUCOSE 115 mg/dl (70-220); POTASSIUM 4.4 mmol/L (3.5-5.1); SODIUM 138 mmol/L (135-144); TOTAL PROTEIN 6.3 g/dl (6.1-8.1)
[2017-12-10] MEDS: ENOXAPARIN 40 MG/0.4 ML SYG SC (08:55)
[2017-12-10 10:17] LABS: ADD UMIC YES; UR ASCORBIC ACID 40 mg/dL (NEGATIVE); UR BACTERIA FEW /HPF (NONE SEEN); UR BILIRUBIN (Dip) NEGATIVE (NEGATIVE); UR BLOOD (Dip) NEGATIVE (NEGATIVE); UR CLARITY SLIGHTLY CLOUDY (CLEAR); UR COLOR YELLOW (YELLOW); UR GLUCOSE (Dip) 1+ mg/dL (NEGATIVE); UR KETONES (Dip) 2+ mg/dL (NEGATIVE); UR LEUKOCYTE ESTERASE (Dip) NEGATIVE Leu/ul (NEGATIVE); UR MUCUS FEW /HPF (NONE SEEN); UR NITRITE (Dip) NEGATIVE (NEGATIVE); UR RBC 1 /HPF (0-5); UR SPECIFIC GRAVITY (Dip) 1.028 (1.003-1.030); UR SQUAMOUS EPITHELIAL CELL MODERATE /HPF (FEW); UR TOTAL PROTEIN (Dip) 1+ mg/dl (NEGATIVE); UR UROBILINOGEN (Dip) 1+ mg/dL (NEGATIVE); UR WBC 3 /HPF (0-5)
[2017-12-10] MEDS: ONDANSETRON 4 MG INJ IV (19:00)
[2017-12-10] MEDS: ONDANSETRON INJ 16 MG, DEXAMETHASONE 10 MG/ML 10 MG in DEXTROSE 5% 50 ML IVPB (20:46)
[2017-12-10] MEDS: DIPHENHYDRAMINE 50 MG INJ IV (20:47)
[2017-12-10] MEDS: SOD CHLORIDE 0.9% IV ×3 (21:48→23:04)
[2017-12-10] MEDS: DOXORUBICIN IV (21:48)
[2017-12-10] MEDS: IFOSFAMIDE IV (23:04)
[2017-12-10] MEDS: MESNA IV (23:04)
[2017-12-11] MEDS: HYDROmorphONE 2 MG/ML SYG IV ×6 (02:47→22:36)
[2017-12-11 05:08] LABS: ADD MAN DIFF? NO
[2017-12-11 05:12] LABS: BASOPHILS % 0.2 % (0.0-2.0); EOSINOPHILS # 0.3 10^3/ul (0.0-0.5); EOSINOPHILS % 1.9 % (0.0-7.0); HEMATOCRIT 23.3 % (37.0-47.0); HEMOGLOBIN 7.5 g/dl (12.0-16.0); LYMPHOCYTES # 1.1 10^3/ul (0.8-2.9); LYMPHOCYTES % 8.5 % (15.0-51.0); MEAN CORPUSCULAR HEMOGLOBIN 28.6 pg (29.0-33.0); MEAN CORPUSCULAR HGB CONC 32.2 g/dl (32.0-37.0); MEAN CORPUSCULAR VOLUME 88.9 fl (82.0-101.0); MEAN PLATELET VOLUME 8.6 fl (7.4-10.4); MONOCYTE # 0.7 10^3/ul (0.3-0.9); MONOCYTES % 5.6 % (0.0-11.0); NEUTROPHIL # 10.8 10^3/ul (1.6-7.5); NEUTROPHILS % 82.8 % (39.0-77.0); PLATELET COUNT 275 10^3/UL (140-415); RED BLOOD COUNT 2.62 10^6/ul (4.20-5.40)
[2017-12-11 05:40] LABS: ALANINE AMINOTRANSFERASE 20 IU/L (13-69); ALBUMIN 2.3 g/dl (3.3-4.9); ALBUMIN/GLOBULIN RATIO 0.63; ALKALINE PHOSPHATASE 66 IU/L (42-121); ANION GAP 10 (8-16); ASPARTATE AMINO TRANSFERASE 17 IU/L (15-46); BLOOD UREA NITROGEN 7 mg/dl (7-20); CARBON DIOXIDE 27 mmol/L (21-31); CHLORIDE 107 mmol/L (97-110); CREATININE 0.51 mg/dl (0.44-1.00); GLUCOSE 100 mg/dl (70-220); POTASSIUM 4.6 mmol/L (3.5-5.1); SODIUM 139 mmol/L (135-144); TOTAL PROTEIN 5.9 g/dl (6.1-8.1)
[2017-12-11] MEDS: ENOXAPARIN 40 MG/0.4 ML SYG SC (08:51)
[2017-12-11] MEDS: SOD CHLORIDE 0.9% 1,000 ML IV ×2 (08:53→18:23)
[2017-12-11] MEDS: DIPHENHYDRAMINE 50 MG INJ IV ×2 (10:59→21:12)
[2017-12-11] MEDS: ONDANSETRON 4 MG INJ IV (15:54)
[2017-12-11 17:16] LABS: ADD UMIC NO; UR ASCORBIC ACID 40 mg/dL (NEGATIVE); UR BILIRUBIN (Dip) NEGATIVE (NEGATIVE); UR BLOOD (Dip) NEGATIVE (NEGATIVE); UR CLARITY CLEAR (CLEAR); UR COLOR YELLOW (YELLOW); UR GLUCOSE (Dip) 1+ mg/dL (NEGATIVE); UR KETONES (Dip) 1+ mg/dL (NEGATIVE); UR LEUKOCYTE ESTERASE (Dip) NEGATIVE Leu/ul (NEGATIVE); UR NITRITE (Dip) NEGATIVE (NEGATIVE); UR SPECIFIC GRAVITY (Dip) 1.023 (1.003-1.030); UR TOTAL PROTEIN (Dip) NEGATIVE (NEGATIVE); UR UROBILINOGEN (Dip) NEGATIVE (NEGATIVE)
[2017-12-11] MEDS: ONDANSETRON INJ 16 MG, DEXAMETHASONE 10 MG/ML 10 MG in DEXTROSE 5% 50 ML IVPB (21:12)
[2017-12-11] MEDS: SOD CHLORIDE 0.9% IV (22:46)
[2017-12-11] MEDS: DOXORUBICIN IV (22:46)
[2017-12-12] MEDS: IFOSFAMIDE IV (00:27)
[2017-12-12] MEDS: SOD CHLORIDE 0.9% IV ×3 (00:27→17:33)
[2017-12-12] MEDS: MESNA IV ×2 (00:30→17:33)
[2017-12-12] MEDS: HYDROmorphONE 2 MG/ML SYG IV ×5 (02:24→23:33)
[2017-12-12] MEDS: SOD CHLORIDE 0.9% 1,000 ML IV ×2 (04:30→13:50)
[2017-12-12] MEDS: ONDANSETRON 4 MG INJ IV ×2 (05:08→20:30)
[2017-12-12 05:31] LABS: ADD MAN DIFF? NO
[2017-12-12 05:32] LABS: WHITE BLOOD COUNT 10.1 10^3/ul (4.8-10.8)
[2017-12-12 05:32] LABS: BASOPHILS % 0.2 % (0.0-2.0); EOSINOPHILS # 0.2 10^3/ul (0.0-0.5); EOSINOPHILS % 2.3 % (0.0-7.0); HEMATOCRIT 27.7 % (37.0-47.0); HEMOGLOBIN 8.9 g/dl (12.0-16.0); LYMPHOCYTES # 0.8 10^3/ul (0.8-2.9); LYMPHOCYTES % 7.7 % (15.0-51.0); MEAN CORPUSCULAR HGB CONC 32.1 g/dl (32.0-37.0); MEAN CORPUSCULAR VOLUME 90.2 fl (82.0-101.0); MEAN PLATELET VOLUME 8.6 fl (7.4-10.4); MONOCYTE # 0.5 10^3/ul (0.3-0.9); MONOCYTES % 5.1 % (0.0-11.0); NEUTROPHIL # 8.5 10^3/ul (1.6-7.5); NEUTROPHILS % 84.1 % (39.0-77.0); PLATELET COUNT 250 10^3/UL (140-415); RED BLOOD COUNT 3.07 10^6/ul (4.20-5.40); RED CELL DISTRIBUTION WIDTH 18.2 % (11.5-14.5)
[2017-12-12 06:17] LABS: ALANINE AMINOTRANSFERASE 18 IU/L (13-69); ALBUMIN 2.4 g/dl (3.3-4.9); ALBUMIN/GLOBULIN RATIO 0.72; ALKALINE PHOSPHATASE 58 IU/L (42-121); ANION GAP 13 (8-16); ASPARTATE AMINO TRANSFERASE 19 IU/L (15-46); BILIRUBIN,INDIRECT 0.1 mg/dl (0-1.1); BILIRUBIN,TOTAL 0.1 mg/dl (0.2-1.3); BLOOD UREA NITROGEN 9 mg/dl (7-20); CALCIUM 8.3 mg/dl (8.4-10.2); CARBON DIOXIDE 25 mmol/L (21-31); CHLORIDE 104 mmol/L (97-110); CREATININE 0.43 mg/dl (0.44-1.00); GLUCOSE 93 mg/dl (70-220); POTASSIUM 4.4 mmol/L (3.5-5.1); SODIUM 138 mmol/L (135-144); TOTAL PROTEIN 5.7 g/dl (6.1-8.1)
[2017-12-12] MEDS: ENOXAPARIN 40 MG/0.4 ML SYG SC (08:11)
[2017-12-12 11:37] LABS: ADD UMIC NO; UR ASCORBIC ACID NEGATIVE (NEGATIVE); UR BILIRUBIN (Dip) NEGATIVE (NEGATIVE); UR BLOOD (Dip) NEGATIVE (NEGATIVE); UR CLARITY CLEAR (CLEAR); UR COLOR STRAW (YELLOW); UR GLUCOSE (Dip) 1+ mg/dL (NEGATIVE); UR KETONES (Dip) TRACE mg/dL (NEGATIVE); UR LEUKOCYTE ESTERASE (Dip) NEGATIVE Leu/ul (NEGATIVE); UR NITRITE (Dip) NEGATIVE (NEGATIVE); UR SPECIFIC GRAVITY (Dip) 1.009 (1.003-1.030); UR TOTAL PROTEIN (Dip) NEGATIVE (NEGATIVE); UR UROBILINOGEN (Dip) NEGATIVE (NEGATIVE)
[2017-12-12] MEDS: DOCUSATE SODIUM 100 MG CAP PO (14:37)
[2017-12-12] MEDS: ACETAMINOPHEN 325 MG TAB PO (21:21)
[2017-12-12] MEDS ORDERED: VANCOMYCIN IV PER PHARMACY XX (22:00)
[2017-12-13] MEDS: SOD CHLORIDE 0.9% 1,000 ML IV ×3 (00:10→19:46)
[2017-12-13] MEDS: CEFEPIME 2GM/50 ML (PMX) 50 ML IVPB ×4 (00:11→21:43)
[2017-12-13] MEDS: METOCLOPRAMIDE 10 MG INJ IV (00:31)
[2017-12-13] MEDS: DOCUSATE SODIUM 100 MG CAP PO ×2 (00:36→14:05)
[2017-12-13] MEDS: VANCOMYCIN 1.5 GM in SOD CHLORIDE 0.9% 250 ML IVPB (00:56)
[2017-12-13 05:16] LABS: ADD MAN DIFF? NO
[2017-12-13] MEDS: HYDROmorphONE 2 MG/ML SYG IV ×5 (05:51→21:44)
[2017-12-13 05:52] LABS: ALANINE AMINOTRANSFERASE 20 IU/L (13-69); ALBUMIN/GLOBULIN RATIO 0.62; ALKALINE PHOSPHATASE 58 IU/L (42-121); ANION GAP 10 (8-16); ASPARTATE AMINO TRANSFERASE 26 IU/L (15-46); BILIRUBIN,INDIRECT 0.4 mg/dl (0-1.1); BILIRUBIN,TOTAL 0.4 mg/dl (0.2-1.3); BLOOD UREA NITROGEN 11 mg/dl (7-20); CALCIUM 7.6 mg/dl (8.4-10.2); CARBON DIOXIDE 26 mmol/L (21-31); CHLORIDE 104 mmol/L (97-110); CREATININE 0.54 mg/dl (0.44-1.00); GLUCOSE 123 mg/dl (70-220); POTASSIUM 3.3 mmol/L (3.5-5.1); SODIUM 137 mmol/L (135-144); TOTAL PROTEIN 5.2 g/dl (6.1-8.1)
[2017-12-13 06:12] LABS: ADD UMIC NO; UR ASCORBIC ACID 20 mg/dL (NEGATIVE); UR BILIRUBIN (Dip) NEGATIVE (NEGATIVE); UR BLOOD (Dip) NEGATIVE (NEGATIVE); UR CLARITY CLEAR (CLEAR); UR COLOR YELLOW (YELLOW); UR GLUCOSE (Dip) 1+ mg/dL (NEGATIVE); UR KETONES (Dip) 1+ mg/dL (NEGATIVE); UR LEUKOCYTE ESTERASE (Dip) NEGATIVE Leu/ul (NEGATIVE); UR NITRITE (Dip) NEGATIVE (NEGATIVE); UR SPECIFIC GRAVITY (Dip) 1.016 (1.003-1.030); UR TOTAL PROTEIN (Dip) NEGATIVE (NEGATIVE); UR UROBILINOGEN (Dip) NEGATIVE (NEGATIVE)
[2017-12-13] MEDS: ENOXAPARIN 40 MG/0.4 ML SYG SC (07:32)
[2017-12-13 07:33] LABS: ABNORMAL IP MESSAGE 1; BASOPHILS % 0.1 % (0.0-2.0); EOSINOPHILS # 0.5 10^3/ul (0.0-0.5); EOSINOPHILS % 4.2 % (0.0-7.0); HEMATOCRIT 18.5 % (37.0-47.0); LYMPHOCYTES # 0.8 10^3/ul (0.8-2.9); LYMPHOCYTES % 6.9 % (15.0-51.0); MEAN CORPUSCULAR HEMOGLOBIN 29.8 pg (29.0-33.0); MEAN CORPUSCULAR VOLUME 90.2 fl (82.0-101.0); MEAN PLATELET VOLUME 8.4 fl (7.4-10.4); MONOCYTE # 0.1 10^3/ul (0.3-0.9); MONOCYTES % 1.2 % (0.0-11.0); NEUTROPHIL # 9.9 10^3/ul (1.6-7.5); NEUTROPHILS % 87.1 % (39.0-77.0); PLATELET COUNT 215 10^3/UL (140-415); RED BLOOD COUNT 2.05 10^6/ul (4.20-5.40); RED CELL DISTRIBUTION WIDTH 18.4 % (11.5-14.5)
[2017-12-13 07:33] LABS: WHITE BLOOD COUNT 11.4 10^3/ul (4.8-10.8)
[2017-12-13 07:36] LABS: POSITIVE DIFF @See below
[2017-12-13 07:38] LABS: HEMOGLOBIN 6.1 g/dl (12.0-16.0); PATH REVIEW? YES
[2017-12-13] MEDS ORDERED: VANCOMYCIN 1 GM 250 ML IVPB (08:00)
[2017-12-13] MEDS: ACETAMINOPHEN 325 MG TAB PO (10:32)
[2017-12-13] MEDS: MULTIVITAMINS THERAPEUTIC TAB PO (10:35)
[2017-12-13] MEDS: ONDANSETRON 4 MG INJ IV ×2 (10:39→19:09)
[2017-12-13] MEDS: VANCOMYCIN 750 MG in SOD CHLORIDE 0.9% 150 ML IVPB ×2 (12:01→20:06)
[2017-12-13] MEDS: FILGRASTIM 300 MCG INJ SC (16:51)
[2017-12-13] MEDS: MESNA IV (16:53)
[2017-12-13] MEDS: SOD CHLORIDE 0.9% IV (16:53)
[2017-12-13] MEDS ORDERED: VANCOMYCIN 750 MG in SOD CHLORIDE 0.9% 150 ML IVPB (20:00)
[2017-12-13] MEDS: SOD CHLORIDE 0.9% 250 ML IV* (22:27)
[2017-12-13 22:59] LABS: IMMEDIATE SPIN CROSSMATCH 1 2
[2017-12-14] MEDS: DOCUSATE SODIUM 100 MG CAP PO ×3 (00:30→20:39)
[2017-12-14] MEDS: HYDROmorphONE 2 MG/ML SYG IV ×6 (01:48→20:41)
[2017-12-14] MEDS: VANCOMYCIN 750 MG in SOD CHLORIDE 0.9% 150 ML IVPB ×2 (04:12→12:35)
[2017-12-14] MEDS: ONDANSETRON 4 MG INJ IV ×2 (06:08→18:44)
[2017-12-14] MEDS: CEFEPIME 2GM/50 ML (PMX) 50 ML IVPB ×3 (06:08→22:27)
[2017-12-14] MEDS: SOD CHLORIDE 0.9% 1,000 ML IV ×2 (06:09→12:35)
[2017-12-14] MEDS: ENOXAPARIN 40 MG/0.4 ML SYG SC (09:00)
[2017-12-14] MEDS: MULTIVITAMINS THERAPEUTIC TAB PO (09:37)
[2017-12-14 12:23] LABS: VANCOMYCIN,TROUGH 7.2 ug/ml (10.0-20.0)
[2017-12-14] MEDS: DIPHENHYDRAMINE 50 MG INJ IV ×2 (13:48→20:40)
[2017-12-14 14:19] LABS: PATH REVIEW CH
[2017-12-14] MEDS ORDERED: VANCOMYCIN IV PER PHARMACY XX (15:30)
[2017-12-14 17:06] LABS: ADD UMIC NO; UR ASCORBIC ACID 20 mg/dL (NEGATIVE); UR BILIRUBIN (Dip) NEGATIVE (NEGATIVE); UR BLOOD (Dip) NEGATIVE (NEGATIVE); UR CLARITY CLEAR (CLEAR); UR COLOR YELLOW (YELLOW); UR GLUCOSE (Dip) 1+ mg/dL (NEGATIVE); UR KETONES (Dip) TRACE mg/dL (NEGATIVE); UR LEUKOCYTE ESTERASE (Dip) NEGATIVE Leu/ul (NEGATIVE); UR NITRITE (Dip) NEGATIVE (NEGATIVE); UR SPECIFIC GRAVITY (Dip) 1.014 (1.003-1.030); UR TOTAL PROTEIN (Dip) NEGATIVE (NEGATIVE); UR UROBILINOGEN (Dip) NEGATIVE (NEGATIVE)
[2017-12-14] MEDS: FILGRASTIM 300 MCG INJ SC (18:38)
[2017-12-14] MEDS: ACETAMINOPHEN 500 MG TAB PO (20:38)
[2017-12-14] MEDS: VANCOMYCIN 1 GM 250 ML IVPB (20:40)
[2017-12-15] MEDS: HYDROmorphONE 2 MG/ML SYG IV ×7 (02:29→21:18)
[2017-12-15] MEDS: ONDANSETRON 4 MG INJ IV (02:50)
[2017-12-15] MEDS: SOD CHLORIDE 0.9% 1,000 ML IV ×3 (03:31→15:09)
[2017-12-15] MEDS: VANCOMYCIN 1 GM 250 ML IVPB ×2 (03:32→17:08)
[2017-12-15 05:49] LABS: WHITE BLOOD COUNT 18.4 10^3/ul (4.8-10.8)
[2017-12-15 05:49] LABS: ABNORMAL IP MESSAGE 1; HEMATOCRIT 24.3 % (37.0-47.0); HEMOGLOBIN 8.2 g/dl (12.0-16.0); MEAN CORPUSCULAR HEMOGLOBIN 29.9 pg (29.0-33.0); MEAN CORPUSCULAR HGB CONC 33.7 g/dl (32.0-37.0); MEAN CORPUSCULAR VOLUME 88.7 fl (82.0-101.0); MEAN PLATELET VOLUME 8.2 fl (7.4-10.4); PLATELET COUNT 169 10^3/UL (140-415); RED BLOOD COUNT 2.74 10^6/ul (4.20-5.40); RED CELL DISTRIBUTION WIDTH 16.9 % (11.5-14.5)
[2017-12-15 05:53] LABS: ADD MAN DIFF? YES; POSITIVE DIFF @See below
[2017-12-15 06:05] LABS: ALANINE AMINOTRANSFERASE 28 IU/L (13-69); ALBUMIN 1.8 g/dl (3.3-4.9); ALBUMIN/GLOBULIN RATIO 0.58; ALKALINE PHOSPHATASE 73 IU/L (42-121); ANION GAP 6 (8-16); ASPARTATE AMINO TRANSFERASE 20 IU/L (15-46); BILIRUBIN,INDIRECT 0.3 mg/dl (0-1.1); BILIRUBIN,TOTAL 0.3 mg/dl (0.2-1.3); BLOOD UREA NITROGEN 9 mg/dl (7-20); CALCIUM 7.5 mg/dl (8.4-10.2); CARBON DIOXIDE 26 mmol/L (21-31); CHLORIDE 108 mmol/L (97-110); CREATININE 0.45 mg/dl (0.44-1.00); GLUCOSE 84 mg/dl (70-220); POTASSIUM 3.3 mmol/L (3.5-5.1); SODIUM 137 mmol/L (135-144); TOTAL PROTEIN 4.9 g/dl (6.1-8.1)
[2017-12-15] MEDS: CEFEPIME 2GM/50 ML (PMX) 50 ML IVPB ×3 (06:06→21:18)
[2017-12-15 07:25] LABS: BAND NEUTROPHILS #M 0.1 10^3/ul (0.0-0.6); BAND NEUTROPHILS % (M) 1 % (0-4); EOSINOPHILS % (M) 14 % (0-7); LYMPHOCYTES #M 1.1 10^3/ul (0.8-2.9); LYMPHOCYTES % (M) 6 % (15-51); PLATELET ESTIMATE NORMAL; SEG NEUT #M 14.6 10^3/ul (1.6-7.5); SEGMENTED NEUTROPHILS (M) % 79 % (39-77); SMUDGE%M 4 % (0-0)
[2017-12-15] MEDS: MULTIVITAMINS THERAPEUTIC TAB PO (08:46)
[2017-12-15] MEDS: ENOXAPARIN 40 MG/0.4 ML SYG SC (08:52)
[2017-12-15] MEDS: DIPHENHYDRAMINE 25 MG CAP PO ×2 (09:00)
[2017-12-15] MEDS: POTASSIUM CHLORIDE (SR) 20 MEQ TAB PO ×2 (15:02→21:18)
[2017-12-15] MEDS: ACETAMINOPHEN 500 MG TAB PO (15:04)
[2017-12-15] MEDS: DOCUSATE SODIUM 100 MG CAP PO (15:05)
[2017-12-15] MEDS: DIPHENHYDRAMINE 50 MG INJ IV ×2 (17:11→18:05)
[2017-12-15] MEDS: SOD CHLORIDE 0.9% IV (18:05)
[2017-12-15] MEDS: MESNA IV (18:05)
[2017-12-16] MEDS: DOCUSATE SODIUM 100 MG CAP PO ×2 (00:58→13:27)
[2017-12-16] MEDS: HYDROmorphONE 2 MG/ML SYG IV ×7 (01:23→23:30)
[2017-12-16] MEDS: VANCOMYCIN 1 GM 250 ML IVPB ×3 (01:23→17:43)
[2017-12-16] MEDS: DIPHENHYDRAMINE 50 MG INJ IV ×3 (01:24→17:37)
[2017-12-16] MEDS: SOD CHLORIDE 0.9% 1,000 ML IV ×2 (02:00→07:52)
[2017-12-16 05:11] LABS: WHITE BLOOD COUNT 8.3 10^3/ul (4.8-10.8)
[2017-12-16 05:11] LABS: ABNORMAL IP MESSAGE 1; HEMATOCRIT 23.1 % (37.0-47.0); HEMOGLOBIN 7.6 g/dl (12.0-16.0); MEAN CORPUSCULAR HEMOGLOBIN 29.3 pg (29.0-33.0); MEAN CORPUSCULAR HGB CONC 32.9 g/dl (32.0-37.0); MEAN CORPUSCULAR VOLUME 89.2 fl (82.0-101.0); MEAN PLATELET VOLUME 8.3 fl (7.4-10.4); PLATELET COUNT 117 10^3/UL (140-415); RED BLOOD COUNT 2.59 10^6/ul (4.20-5.40); RED CELL DISTRIBUTION WIDTH 16.8 % (11.5-14.5)
[2017-12-16 05:30] LABS: ALANINE AMINOTRANSFERASE 21 IU/L (13-69); ALBUMIN 1.9 g/dl (3.3-4.9); ALBUMIN/GLOBULIN RATIO 0.61; ALKALINE PHOSPHATASE 76 IU/L (42-121); ANION GAP 9 (8-16); ASPARTATE AMINO TRANSFERASE 17 IU/L (15-46); BILIRUBIN,INDIRECT 0.2 mg/dl (0-1.1); BILIRUBIN,TOTAL 0.2 mg/dl (0.2-1.3); BLOOD UREA NITROGEN 10 mg/dl (7-20); CALCIUM 7.3 mg/dl (8.4-10.2); CARBON DIOXIDE 25 mmol/L (21-31); CHLORIDE 107 mmol/L (97-110); CREATININE 0.54 mg/dl (0.44-1.00); GLUCOSE 88 mg/dl (70-220); POTASSIUM 3.7 mmol/L (3.5-5.1); SODIUM 137 mmol/L (135-144)
[2017-12-16 05:36] LABS: ADD MAN DIFF? YES; POSITIVE DIFF @See below
[2017-12-16] MEDS: CEFEPIME 2GM/50 ML (PMX) 50 ML IVPB ×3 (06:03→22:12)
[2017-12-16 07:48] LABS: ANISOCYTOSIS 1+ (0-0); BAND NEUTROPHILS #M 0.2 10^3/ul (0.0-0.6); BAND NEUTROPHILS % (M) 3 % (0-4); EOSINOPHILS % (M) 15 % (0-7); LYMPHOCYTES #M 0.4 10^3/ul (0.8-2.9); LYMPHOCYTES % (M) 6 % (15-51); MICROCYTOSIS 1+ (0-0); PLATELET ESTIMATE DECREASED; POIKILOCYTOSIS 1+ (0-0); POLYCHROMASIA 1+ (0-0); SEG NEUT #M 6.3 10^3/ul (1.6-7.5); SEGMENTED NEUTROPHILS (M) % 76 % (39-77); SMUDGE%M 8 % (0-0); TARGET CELLS 1+ (0-0)
[2017-12-16] MEDS: MULTIVITAMINS THERAPEUTIC TAB PO (08:44)
[2017-12-16] MEDS: ACETAMINOPHEN 500 MG TAB PO (08:44)
[2017-12-16] MEDS: ENOXAPARIN 40 MG/0.4 ML SYG SC (09:00)
[2017-12-16] MEDS: DIPHENHYDRAMINE 25 MG CAP PO (09:00)
[2017-12-16 16:42] LABS: IRON 90 ug/dl (35-150)
[2017-12-16 16:52] LABS: % IRON SATURATION 64 % SAT (22-52); TOTAL IRON BINDING CAPACITY 140 ug/dl (241-421)
[2017-12-16 17:27] LABS: VANCOMYCIN,TROUGH 9.7 ug/ml (10.0-20.0)
[2017-12-17] MEDS: DOCUSATE SODIUM 100 MG CAP PO ×2 (01:16→14:34)
[2017-12-17] MEDS: VANCOMYCIN 1.25 GM in SOD CHLORIDE 0.9% 250 ML IVPB ×3 (01:37→18:32)
[2017-12-17] MEDS: ACETAMINOPHEN 325 MG TAB PO (01:38)
[2017-12-17] MEDS: HYDROmorphONE 2 MG/ML SYG IV ×8 (01:38→22:58)
[2017-12-17] MEDS: DIPHENHYDRAMINE 50 MG INJ IV ×3 (01:50→18:31)
[2017-12-17] MEDS: ONDANSETRON 4 MG INJ IV ×2 (01:53→20:16)
[2017-12-17] MEDS: SOD CHLORIDE 0.9% 1,000 ML IV ×2 (03:00→09:42)
[2017-12-17 05:38] LABS: WHITE BLOOD COUNT 4.1 10^3/ul (4.8-10.8)
[2017-12-17 05:38] LABS: ABNORMAL IP MESSAGE 1; HEMATOCRIT 21.8 % (37.0-47.0); HEMOGLOBIN 7.2 g/dl (12.0-16.0); MEAN CORPUSCULAR HEMOGLOBIN 29.4 pg (29.0-33.0); PLATELET COUNT 88 10^3/UL (140-415); RED BLOOD COUNT 2.45 10^6/ul (4.20-5.40); RED CELL DISTRIBUTION WIDTH 16.4 % (11.5-14.5)
[2017-12-17] MEDS: CEFEPIME 2GM/50 ML (PMX) 50 ML IVPB (05:47)
[2017-12-17 05:54] LABS: POSITIVE DIFF @See below
[2017-12-17 05:55] LABS: ADD MAN DIFF? YES
[2017-12-17 06:21] LABS: ALANINE AMINOTRANSFERASE 14 IU/L (13-69); ALBUMIN 1.7 g/dl (3.3-4.9); ALKALINE PHOSPHATASE 71 IU/L (42-121); ANION GAP 8 (8-16); ASPARTATE AMINO TRANSFERASE 15 IU/L (15-46); BILIRUBIN,INDIRECT 0.1 mg/dl (0-1.1); BILIRUBIN,TOTAL 0.1 mg/dl (0.2-1.3); BLOOD UREA NITROGEN 5 mg/dl (7-20); CALCIUM 7.5 mg/dl (8.4-10.2); CARBON DIOXIDE 26 mmol/L (21-31); CHLORIDE 107 mmol/L (97-110); CREATININE 0.43 mg/dl (0.44-1.00); GLUCOSE 85 mg/dl (70-220); POTASSIUM 3.6 mmol/L (3.5-5.1); SODIUM 137 mmol/L (135-144); TOTAL PROTEIN 4.5 g/dl (6.1-8.1)
[2017-12-17] MEDS: MULTIVITAMINS THERAPEUTIC TAB PO (08:32)
[2017-12-17] MEDS: DIPHENHYDRAMINE 25 MG CAP PO (09:00)
[2017-12-17] MEDS: ACETAMINOPHEN 500 MG TAB PO (09:00)
[2017-12-17] MEDS: ENOXAPARIN 40 MG/0.4 ML SYG SC (09:00)
[2017-12-17 09:23] LABS: ANISOCYTOSIS 1+ (0-0); BAND NEUTROPHILS #M 0.4 10^3/ul (0.0-0.6); BAND NEUTROPHILS % (M) 11 % (0-4); BURR CELLS 1+ (0-0); EOSINOPHILS % (M) 21 % (0-7); LYMPHOCYTES #M 0.6 10^3/ul (0.8-2.9); LYMPHOCYTES % (M) 16 % (15-51); MICROCYTOSIS 1+ (0-0); PLATELET ESTIMATE SIG DECREASED; POIKILOCYTOSIS 1+ (0-0); POLYCHROMASIA 1+ (0-0); SEG NEUT #M 2.1 10^3/ul (1.6-7.5); SEGMENTED NEUTROPHILS (M) % 52 % (39-77)
[2017-12-17] MEDS ORDERED: CIPROFLOXACIN 400MG/D5W 200 ML IVPB (14:00)
[2017-12-17] MEDS: MEROPENEM 1 GM/50ML(PMX) 50 ML IVPB (22:27)
[2017-12-18] MEDS: DOCUSATE SODIUM 100 MG CAP PO ×2 (02:06→13:04)
[2017-12-18] MEDS: DIPHENHYDRAMINE 50 MG INJ IV ×3 (02:06→19:00)
[2017-12-18] MEDS: HYDROmorphONE 2 MG/ML SYG IV ×9 (02:07→21:40)
[2017-12-18] MEDS: VANCOMYCIN 1.25 GM in SOD CHLORIDE 0.9% 250 ML IVPB ×3 (02:07→19:00)
[2017-12-18] MEDS: ACETAMINOPHEN 325 MG TAB PO (02:11)
[2017-12-18] MEDS: SOD CHLORIDE 0.9% 1,000 ML IV ×2 (04:00→06:26)
[2017-12-18 05:29] LABS: WHITE BLOOD COUNT 2.7 10^3/ul (4.8-10.8)
[2017-12-18 05:29] LABS: ABNORMAL IP MESSAGE 1; HEMATOCRIT 22.1 % (37.0-47.0); HEMOGLOBIN 7.4 g/dl (12.0-16.0); MEAN CORPUSCULAR HEMOGLOBIN 29.7 pg (29.0-33.0); MEAN CORPUSCULAR HGB CONC 33.5 g/dl (32.0-37.0); MEAN CORPUSCULAR VOLUME 88.8 fl (82.0-101.0); MEAN PLATELET VOLUME 8.4 fl (7.4-10.4); PLATELET COUNT 67 10^3/UL (140-415); RED BLOOD COUNT 2.49 10^6/ul (4.20-5.40)
[2017-12-18 05:44] LABS: POSITIVE DIFF @See below
[2017-12-18 05:45] LABS: ADD MAN DIFF? YES
[2017-12-18 06:02] LABS: ALANINE AMINOTRANSFERASE 16 IU/L (13-69); ALBUMIN 2.1 g/dl (3.3-4.9); ALBUMIN/GLOBULIN RATIO 0.63; ALKALINE PHOSPHATASE 80 IU/L (42-121); ANION GAP 9 (8-16); ASPARTATE AMINO TRANSFERASE 20 IU/L (15-46); BILIRUBIN,INDIRECT 0.1 mg/dl (0-1.1); BILIRUBIN,TOTAL 0.1 mg/dl (0.2-1.3); BLOOD UREA NITROGEN 5 mg/dl (7-20); CALCIUM 7.7 mg/dl (8.4-10.2); CARBON DIOXIDE 26 mmol/L (21-31); CHLORIDE 107 mmol/L (97-110); CREATININE 0.42 mg/dl (0.44-1.00); GLUCOSE 84 mg/dl (70-220); POTASSIUM 3.8 mmol/L (3.5-5.1); SODIUM 138 mmol/L (135-144); TOTAL PROTEIN 5.4 g/dl (6.1-8.1)
[2017-12-18 06:25] LABS: ANISOCYTOSIS 1+ (0-0); BAND NEUTROPHILS #M 0.1 10^3/ul (0.0-0.6); BAND NEUTROPHILS % (M) 6 % (0-4); BASOPHILS % (M) 1 % (0-2); EOSINOPHILS % (M) 24 % (0-7); LYMPHOCYTES #M 0.9 10^3/ul (0.8-2.9); LYMPHOCYTES % (M) 35 % (15-51); MICROCYTOSIS 1+ (0-0); MONOCYTES % (M) 1 % (0-11); PLATELET ESTIMATE SIG DECREASED; POIKILOCYTOSIS 1+ (0-0); SEG NEUT #M 0.9 10^3/ul (1.6-7.5); SEGMENTED NEUTROPHILS (M) % 33 % (39-77); SMUDGE%M 3 % (0-0)
[2017-12-18] MEDS: MULTIVITAMINS THERAPEUTIC TAB PO (08:44)
[2017-12-18] MEDS: ACETAMINOPHEN 500 MG TAB PO (08:44)
[2017-12-18] MEDS: ENOXAPARIN 40 MG/0.4 ML SYG SC (08:45)
[2017-12-18] MEDS: MEROPENEM 1 GM/50ML(PMX) 50 ML IVPB ×3 (08:53→22:20)
[2017-12-18] MEDS: DIPHENHYDRAMINE 25 MG CAP PO (09:00)
[2017-12-18] MEDS: ONDANSETRON 4 MG INJ IV ×2 (09:02→17:57)
[2017-12-18 10:35] LABS: VANCOMYCIN,TROUGH 12.7 ug/ml (10.0-20.0)
[2017-12-18] MEDS: METOPROLOL (XL) 25 MG TAB PO (12:30)
[2017-12-19] MEDS: DOCUSATE SODIUM 100 MG CAP PO ×2 (01:20→11:56)
[2017-12-19] MEDS: HYDROmorphONE 2 MG/ML SYG IV ×9 (01:20→22:20)
[2017-12-19] MEDS: DIPHENHYDRAMINE 50 MG INJ IV ×3 (01:45→17:30)
[2017-12-19] MEDS: VANCOMYCIN 1.25 GM in SOD CHLORIDE 0.9% 250 ML IVPB ×3 (01:46→17:24)
[2017-12-19] MEDS: ONDANSETRON 4 MG INJ IV (04:22)
[2017-12-19] MEDS: SOD CHLORIDE 0.9% 1,000 ML IV ×2 (05:00→16:39)
[2017-12-19 05:13] LABS: ABNORMAL IP MESSAGE 1; HEMATOCRIT 21.1 % (37.0-47.0); MEAN CORPUSCULAR HGB CONC 33.2 g/dl (32.0-37.0); MEAN CORPUSCULAR VOLUME 87.6 fl (82.0-101.0); MEAN PLATELET VOLUME 9.9 fl (7.4-10.4); PLATELET COUNT 64 10^3/UL (140-415); RED BLOOD COUNT 2.41 10^6/ul (4.20-5.40); RED CELL DISTRIBUTION WIDTH 15.5 % (11.5-14.5)
[2017-12-19 05:13] LABS: WHITE BLOOD COUNT 1.5 10^3/ul (4.8-10.8)
[2017-12-19 05:43] LABS: ALANINE AMINOTRANSFERASE 28 IU/L (13-69); ALBUMIN 2.2 g/dl (3.3-4.9); ALBUMIN/GLOBULIN RATIO 0.75; ALKALINE PHOSPHATASE 76 IU/L (42-121); ANION GAP 10 (8-16); ASPARTATE AMINO TRANSFERASE 21 IU/L (15-46); BLOOD UREA NITROGEN 3 mg/dl (7-20); CALCIUM 7.6 mg/dl (8.4-10.2); CARBON DIOXIDE 27 mmol/L (21-31); CHLORIDE 104 mmol/L (97-110); CREATININE 0.38 mg/dl (0.44-1.00); GLUCOSE 100 mg/dl (70-220); POTASSIUM 3.6 mmol/L (3.5-5.1); SODIUM 137 mmol/L (135-144); TOTAL PROTEIN 5.1 g/dl (6.1-8.1)
[2017-12-19 05:47] LABS: POSITIVE DIFF @See below
[2017-12-19 05:48] LABS: ADD MAN DIFF? YES
[2017-12-19 07:27] LABS: ANISOCYTOSIS 1+ (0-0); BAND NEUTROPHILS #M 0.1 10^3/ul (0.0-0.6); BAND NEUTROPHILS % (M) 7 % (0-4); EOSINOPHILS % (M) 28 % (0-7); GIANT THROMBO% (M) 1 % (0-0); LYMPHOCYTES #M 0.7 10^3/ul (0.8-2.9); LYMPHOCYTES % (M) 48 % (15-51); MICROCYTOSIS 1+ (0-0); MONOCYTES % (M) 2 % (0-11); PLATELET ESTIMATE DECREASED; REACTIVE LYMPHOCYTES% (M) 1 % (0-0); SEG NEUT #M 0.2 10^3/ul (1.6-7.5); SEGMENTED NEUTROPHILS (M) % 14 % (39-77); SMUDGE%M 18 % (0-0)
[2017-12-19] MEDS: MULTIVITAMINS THERAPEUTIC TAB PO (08:35)
[2017-12-19] MEDS: MEROPENEM 1 GM/50ML(PMX) 50 ML IVPB ×2 (08:36→21:03)
[2017-12-19] MEDS: METOPROLOL (XL) 25 MG TAB PO (08:36)
[2017-12-19] MEDS: DIPHENHYDRAMINE 25 MG CAP PO (08:37)
[2017-12-19] MEDS: ACETAMINOPHEN 500 MG TAB PO (10:59)
[2017-12-19] MEDS: FILGRASTIM 300 MCG INJ SC (17:24)
[2017-12-19 20:16] LABS: ERYTHROPOIETIN 232.6 mIU/mL (2.6-18.5)
[2017-12-19 23:06] LABS: IMMEDIATE SPIN CROSSMATCH 1 2
[2017-12-20] MEDS: DOCUSATE SODIUM 100 MG CAP PO ×2 (00:30→13:27)
[2017-12-20] MEDS: HYDROmorphONE 2 MG/ML SYG IV ×8 (01:41→23:29)
[2017-12-20] MEDS: DIPHENHYDRAMINE 50 MG INJ IV ×3 (01:41→18:09)
[2017-12-20] MEDS: ONDANSETRON 4 MG INJ IV ×2 (01:41→18:17)
[2017-12-20] MEDS: VANCOMYCIN 1.25 GM in SOD CHLORIDE 0.9% 250 ML IVPB ×3 (01:44→18:10)
[2017-12-20] MEDS: SOD CHLORIDE 0.9% 1,000 ML IV ×3 (06:00→18:30)
[2017-12-20] MEDS: DIPHENHYDRAMINE 25 MG CAP PO (09:00)
[2017-12-20] MEDS: METOPROLOL (XL) 25 MG TAB PO (09:00)
[2017-12-20] MEDS: MEROPENEM 1 GM/50ML(PMX) 50 ML IVPB (09:52)
[2017-12-20] MEDS: MULTIVITAMINS THERAPEUTIC TAB PO (09:54)
[2017-12-20] MEDS: ACETAMINOPHEN 500 MG TAB PO (09:55)
[2017-12-20] MEDS: CIPROFLOXACIN 500 MG TAB PO ×2 (13:28→20:42)
[2017-12-20 15:13] LABS: ABNORMAL IP MESSAGE 1; HEMOGLOBIN 9.7 g/dl (12.0-16.0); MEAN CORPUSCULAR HEMOGLOBIN 29.9 pg (29.0-33.0); MEAN CORPUSCULAR HGB CONC 34.6 g/dl (32.0-37.0); MEAN CORPUSCULAR VOLUME 86.4 fl (82.0-101.0); PLATELET COUNT 110 10^3/UL (140-415); RED BLOOD COUNT 3.24 10^6/ul (4.20-5.40); RED CELL DISTRIBUTION WIDTH 15.3 % (11.5-14.5)
[2017-12-20 15:13] LABS: WHITE BLOOD COUNT 2.3 10^3/ul (4.8-10.8)
[2017-12-20 15:16] LABS: POSITIVE DIFF @See below
[2017-12-20 15:17] LABS: ADD MAN DIFF? YES
[2017-12-20 15:58] LABS: ANION GAP 12 (8-16); BLOOD UREA NITROGEN 4 mg/dl (7-20); CALCIUM 8.2 mg/dl (8.4-10.2); CARBON DIOXIDE 28 mmol/L (21-31); CHLORIDE 103 mmol/L (97-110); CREATININE 0.43 mg/dl (0.44-1.00); GLUCOSE 100 mg/dl (70-220); POTASSIUM 3.7 mmol/L (3.5-5.1); SODIUM 139 mmol/L (135-144)
[2017-12-20 16:10] LABS: FREE T4 (FREE THYROXINE) 1.01 ng/dl (0.79-2.35)
[2017-12-20 17:24] LABS: ANISOCYTOSIS 1+ (0-0); BAND NEUTROPHILS #M 0.5 10^3/ul (0.0-0.6); BAND NEUTROPHILS % (M) 22 % (0-4); EOSINOPHILS % (M) 17 % (0-7); GIANT THROMBO% (M) 1 % (0-0); HYPOCHROMASIA 1+ (0-0); LYMPHOCYTES #M 0.5 10^3/ul (0.8-2.9); LYMPHOCYTES % (M) 25 % (15-51); METAMYELOCYTES %M 1 % (0-0); MONOCYTE #M 0.4 10^3/ul (0.3-0.9); MONOCYTES % (M) 20 % (0-11); MYELOCYTES % (M) 1 % (0-0); PLATELET ESTIMATE NORMAL; SEG NEUT #M 0.3 10^3/ul (1.6-7.5); SEGMENTED NEUTROPHILS (M) % 14 % (39-77); SMUDGE%M 8 % (0-0)
[2017-12-20] MEDS: FILGRASTIM 300 MCG INJ SC (18:08)
[2017-12-21] MEDS: DOCUSATE SODIUM 100 MG CAP PO ×2 (00:30→15:10)
[2017-12-21] MEDS: ONDANSETRON 4 MG INJ IV ×2 (01:17→20:18)
[2017-12-21] MEDS: VANCOMYCIN 1.25 GM in SOD CHLORIDE 0.9% 250 ML IVPB ×2 (02:06→10:52)
[2017-12-21] MEDS: HYDROmorphONE 2 MG/ML SYG IV ×10 (02:07→22:49)
[2017-12-21] MEDS: DIPHENHYDRAMINE 50 MG INJ IV ×2 (02:07→10:51)
[2017-12-21] MEDS: CIPROFLOXACIN 500 MG TAB PO ×2 (05:20→17:50)
[2017-12-21 05:37] LABS: ABNORMAL IP MESSAGE 1; HEMATOCRIT 27.9 % (37.0-47.0); HEMOGLOBIN 9.3 g/dl (12.0-16.0); MEAN CORPUSCULAR HEMOGLOBIN 29.1 pg (29.0-33.0); MEAN CORPUSCULAR HGB CONC 33.3 g/dl (32.0-37.0); MEAN CORPUSCULAR VOLUME 87.2 fl (82.0-101.0); MEAN PLATELET VOLUME 9.5 fl (7.4-10.4); NUCLEATED RED BLOOD CELLS% 0.6 /100WBC (0.0-0.0); PLATELET COUNT 125 10^3/UL (140-415); RED CELL DISTRIBUTION WIDTH 15.7 % (11.5-14.5)
[2017-12-21 05:37] LABS: WHITE BLOOD COUNT 4.9 10^3/ul (4.8-10.8)
[2017-12-21 06:13] LABS: ANION GAP 8 (8-16); BLOOD UREA NITROGEN 6 mg/dl (7-20); CALCIUM 8.3 mg/dl (8.4-10.2); CARBON DIOXIDE 31 mmol/L (21-31); CHLORIDE 102 mmol/L (97-110); CREATININE 0.57 mg/dl (0.44-1.00); GLUCOSE 87 mg/dl (70-220); POSITIVE DIFF @See below; SODIUM 137 mmol/L (135-144)
[2017-12-21 06:14] LABS: ADD MAN DIFF? YES
[2017-12-21] MEDS: SOD CHLORIDE 0.9% 1,000 ML IV ×2 (07:00→19:30)
[2017-12-21] MEDS: DIPHENHYDRAMINE 25 MG CAP PO ×2 (09:00→09:21)
[2017-12-21] MEDS: MULTIVITAMINS THERAPEUTIC TAB PO (09:21)
[2017-12-21] MEDS: ACETAMINOPHEN 500 MG TAB PO (09:21)
[2017-12-21] MEDS: METOPROLOL (XL) 25 MG TAB PO (09:22)
[2017-12-21 09:25] LABS: ANISOCYTOSIS 2+ (0-0); BAND NEUTROPHILS #M 1.8 10^3/ul (0.0-0.6); BAND NEUTROPHILS % (M) 37 % (0-4); BURR CELLS 1+ (0-0); EOSINOPHILS % (M) 11 % (0-7); GIANT THROMBO% (M) 2 % (0-0); LYMPHOCYTES #M 1.1 10^3/ul (0.8-2.9); LYMPHOCYTES % (M) 23 % (15-51); METAMYELOCYTES %M 1 % (0-0); MONOCYTE #M 0.6 10^3/ul (0.3-0.9); MONOCYTES % (M) 13 % (0-11); MYELOCYTES % (M) 2 % (0-0); PLATELET ESTIMATE DECREASED; POIKILOCYTOSIS 2+ (0-0); POLYCHROMASIA 1+ (0-0); SEG NEUT #M 0.7 10^3/ul (1.6-7.5); SEGMENTED NEUTROPHILS (M) % 12 % (39-77); SMUDGE%M 9 % (0-0); STOMATOCYTES 1+ (0-0)
[2017-12-21] MEDS: FILGRASTIM 300 MCG INJ SC (17:51)
[2017-12-21] MEDS: AMOXICILLIN 500 MG CAP PO (21:47)
== END 2017-12-21 23:27 | disposition home health service (06) | DRG 829 ==
LOC: MS1 11:21
PROC: 3E03305 Introduction of Other Antineoplastic into Peripheral Vein, Percutaneous Approach (ICD-10-PCS; 2017-12-05)
PROC: 0HBU0ZX Excision of Left Breast, Open Approach, Diagnostic (ICD-10-PCS; principal; 2017-12-07)
PROC: 30233N1 Transfusion of Nonautologous Red Blood Cells into Peripheral Vein, Percutaneous Approach (ICD-10-PCS; 2017-12-13)
DX: Z51.11 Encounter for antineoplastic chemotherapy (principal); A41.9 Sepsis, unspecified organism; J18.9 Pneumonia, unspecified organism; D61.810 Antineoplastic chemotherapy induced pancytopenia; C50.912 Malignant neoplasm of unspecified site of left female breast; D64.81 Anemia due to antineoplastic chemotherapy; D63.0 Anemia in neoplastic disease; J45.909 Unspecified asthma, uncomplicated; F41.9 Anxiety disorder, unspecified; E87.6 Hypokalemia; R60.0 Localized edema; B96.5 Pseudomonas (aeruginosa) (mallei) (pseudomallei) as the cause of diseases classified elsewhere; B95.2 Enterococcus as the cause of diseases classified elsewhere
CPT/HCPCS: 36430; 71045; 80048; 80053; 80202; 81001; 81003; 82668; 82728; 83540; 83615; 84439; 84443; 84703; 85025; 86644; 86850; 86900; 86901; 86920; 86945; 87040; 87070; 87086; 88307; 93005; 93306; 93970; J9209

== ENCOUNTER 2018-01-18 10:50 | Inpatient (IN) | payer OTHER ==
[2018-01-18] MEDS: HYDROmorphONE 2 MG/ML SYG IV ×4 (12:11→22:27)
[2018-01-18] MEDS ORDERED: METOCLOPRAMIDE 10 MG INJ IV (12:30)
[2018-01-18] MEDS ORDERED: morphine 2 MG INJ IV (12:30)
[2018-01-18] MEDS ORDERED: DIPHENHYDRAMINE 25 MG CAP PO (12:30)
[2018-01-18] MEDS ORDERED: NACL 0.9% 3 ML SYG IV (12:30)
[2018-01-18] MEDS ORDERED: IBUPROFEN 600 MG TAB PO (12:30)
[2018-01-18] MEDS ORDERED: ONDANSETRON 4 MG TAB PO (12:30)
[2018-01-18] MEDS ORDERED: HYDROmorphONE 2 MG TAB PO (12:30)
[2018-01-18] MEDS ORDERED: HYDROCODONE/APAP (5/325) TAB PO (12:30)
[2018-01-18] MEDS: SOD CHLORIDE 0.9% 1,000 ML IV (14:46)
[2018-01-18] MEDS ORDERED: DIPHENHYDRAMINE 50 MG INJ IV (15:00)
[2018-01-18] MEDS: DOCUSATE SODIUM 100 MG CAP PO ×2 (15:07→21:23)
[2018-01-18] MEDS ORDERED: METHYLPREDNISOLONE 125 MG INJ IV (17:30)
[2018-01-19] MEDS: SOD CHLORIDE 0.9% 1,000 ML IV (00:42)
[2018-01-19] MEDS: HYDROmorphONE 2 MG/ML SYG IV ×7 (03:05→20:27)
[2018-01-19 05:37] LABS: ABNORMAL IP MESSAGE 1; HEMATOCRIT 24.4 % (37.0-47.0); HEMOGLOBIN 7.9 g/dl (12.0-16.0); MEAN CORPUSCULAR HEMOGLOBIN 30.4 pg (29.0-33.0); MEAN CORPUSCULAR HGB CONC 32.4 g/dl (32.0-37.0); MEAN CORPUSCULAR VOLUME 93.8 fl (82.0-101.0); MEAN PLATELET VOLUME 8.6 fl (7.4-10.4); PLATELET COUNT 251 10^3/UL (140-415); RED CELL DISTRIBUTION WIDTH 16.4 % (11.5-14.5)
[2018-01-19 05:37] LABS: WHITE BLOOD COUNT 26.6 10^3/ul (4.8-10.8)
[2018-01-19 05:40] LABS: POSITIVE DIFF @See below
[2018-01-19 05:41] LABS: ADD MAN DIFF? YES
[2018-01-19 06:05] LABS: ANION GAP 7 (8-16); BLOOD UREA NITROGEN 7 mg/dl (7-20); CALCIUM 7.4 mg/dl (8.4-10.2); CARBON DIOXIDE 28 mmol/L (21-31); CHLORIDE 98 mmol/L (97-110); CREATININE 0.49 mg/dl (0.44-1.00); GLUCOSE 117 mg/dl (70-220); MAGNESIUM 1.7 mg/dl (1.7-2.5); PHOSPHORUS 2.7 mg/dl (2.5-4.9); POTASSIUM 4.5 mmol/L (3.5-5.1); SODIUM 128 mmol/L (135-144)
[2018-01-19 06:31] LABS: BASOPHIL # 0.1 10^3/ul (0.0-0.1); BASOPHILS % 0.2 % (0.0-2.0); EOSINOPHILS # 11.8 10^3/ul (0.0-0.5); EOSINOPHILS % 44.4 % (0.0-7.0); LYMPHOCYTES # 2.4 10^3/ul (0.8-2.9); LYMPHOCYTES % 9.1 % (15.0-51.0); MONOCYTE # 1.7 10^3/ul (0.3-0.9); MONOCYTES % 6.3 % (0.0-11.0); NEUTROPHILS % 37.6 % (39.0-77.0)
[2018-01-19] MEDS: ENOXAPARIN 40 MG/0.4 ML SYG SC (09:00)
[2018-01-19] MEDS: DOCUSATE SODIUM 100 MG CAP PO ×2 (10:22→20:27)
[2018-01-19] MEDS: MULTIVITAMINS THERAPEUTIC TAB PO (10:22)
[2018-01-19] MEDS: DIPHENHYDRAMINE 50 MG INJ IV ×2 (10:23→17:30)
[2018-01-19 10:48] LABS: ANISOCYTOSIS 1+ (0-0); BAND NEUTROPHILS #M 0.2 10^3/ul (0.0-0.6); BAND NEUTROPHILS % (M) 1 % (0-4); BASOPHIL #M 0.2 10^3/ul (0.0-0.0); BASOPHILS % (M) 1 % (0-2); BURR CELLS 1+ (0-0); EOSINOPHILS % (M) 43 % (0-7); LYMPHOCYTES #M 2.3 10^3/ul (0.8-2.9); LYMPHOCYTES % (M) 9 % (15-51); METAMYELOCYTES #M 0.5 10^3/ul (0.0-0.0); METAMYELOCYTES %M 2 % (0-0); MICROCYTOSIS 1+ (0-0); MONOCYTE #M 1.5 10^3/ul (0.3-0.9); MONOCYTES % (M) 6 % (0-11); PLATELET ESTIMATE NORMAL; POIKILOCYTOSIS 2+ (0-0); POLYCHROMASIA 2+ (0-0); SEG NEUT #M 10.2 10^3/ul (1.6-7.5); SEGMENTED NEUTROPHILS (M) % 38 % (39-77); SMUDGE%M 6 % (0-0)
[2018-01-19] MEDS ORDERED: DIPHENHYDRAMINE 50 MG INJ IV (12:00)
[2018-01-19] MEDS ORDERED: ONDANSETRON INJ 16 MG, DEXAMETHASONE 10 MG/ML 10 MG in SOD CHLORIDE 0.9% 50 ML IVPB (12:00)
[2018-01-19] MEDS ORDERED: SOD CHLORIDE 0.9% IV ×3 (13:00→15:00)
[2018-01-19] MEDS ORDERED: DOXORUBICIN IV (13:00)
[2018-01-19 13:32] LABS: INR 1.21; PROTIME 15.5 Sec (11.9-14.9); PT RATIO 1.2
[2018-01-19 13:33] LABS: PARTIAL THROMBOPLASTIN TIME 46.5 Sec (25.0-35.0)
[2018-01-19] MEDS ORDERED: IFOSFAMIDE IV (14:00)
[2018-01-19] MEDS: MESNA IV (14:00)
[2018-01-19] MEDS: SOD CHLORIDE 0.9% IV (14:00)
[2018-01-19] MEDS ORDERED: MESNA IV (15:00)
[2018-01-19] MEDS: ONDANSETRON 4 MG INJ IV (17:30)
[2018-01-20] MEDS: HYDROmorphONE 2 MG/ML SYG IV ×8 (00:32→22:12)
[2018-01-20 05:35] LABS: ADD MAN DIFF? NO
[2018-01-20 05:43] LABS: WHITE BLOOD COUNT 22.6 10^3/ul (4.8-10.8)
[2018-01-20 05:43] LABS: ABNORMAL IP MESSAGE 1; BASOPHILS % 0.2 % (0.0-2.0); EOSINOPHILS # 7.4 10^3/ul (0.0-0.5); EOSINOPHILS % 32.6 % (0.0-7.0); HEMATOCRIT 22.3 % (37.0-47.0); HEMOGLOBIN 7.2 g/dl (12.0-16.0); LYMPHOCYTES # 2.1 10^3/ul (0.8-2.9); LYMPHOCYTES % 9.2 % (15.0-51.0); MEAN CORPUSCULAR HEMOGLOBIN 30.4 pg (29.0-33.0); MEAN CORPUSCULAR HGB CONC 32.3 g/dl (32.0-37.0); MEAN CORPUSCULAR VOLUME 94.1 fl (82.0-101.0); MEAN PLATELET VOLUME 8.4 fl (7.4-10.4); MONOCYTE # 1.4 10^3/ul (0.3-0.9); MONOCYTES % 6.2 % (0.0-11.0); NEUTROPHIL # 11.3 10^3/ul (1.6-7.5); NEUTROPHILS % 49.9 % (39.0-77.0); PLATELET COUNT 234 10^3/UL (140-415); RED BLOOD COUNT 2.37 10^6/ul (4.20-5.40); RED CELL DISTRIBUTION WIDTH 15.9 % (11.5-14.5)
[2018-01-20 05:49] LABS: POSITIVE DIFF @See below
[2018-01-20 06:09] LABS: ANION GAP 8 (8-16); BLOOD UREA NITROGEN 7 mg/dl (7-20); CALCIUM 7.6 mg/dl (8.4-10.2); CARBON DIOXIDE 26 mmol/L (21-31); CHLORIDE 99 mmol/L (97-110); CREATININE 0.46 mg/dl (0.44-1.00); GLUCOSE 82 mg/dl (70-220); MAGNESIUM 1.7 mg/dl (1.7-2.5); PHOSPHORUS 3.4 mg/dl (2.5-4.9); POTASSIUM 4.7 mmol/L (3.5-5.1); SODIUM 128 mmol/L (135-144)
[2018-01-20] MEDS ORDERED: MEPERIDINE 25 MG INJ IV (08:00)
[2018-01-20] MEDS ORDERED: PROCHLORPERAZINE 10 MG INJ IV (08:00)
[2018-01-20] MEDS ORDERED: HYDROmorphONE (0.2 MG/ML) 10ML SYG IV ×3 (08:00)
[2018-01-20] MEDS ORDERED: DIPHENHYDRAMINE 50 MG INJ IV (08:00)
[2018-01-20] MEDS ORDERED: FENTAnyl 50 MCG/ML VIAL IV ×2 (08:00)
[2018-01-20] MEDS ORDERED: ONDANSETRON 4 MG INJ IV (08:00)
[2018-01-20] MEDS ORDERED: PROPOFOL 20 ML ×2 (08:11→09:57)
[2018-01-20] MEDS ORDERED: MIDAZOLAM 1 MG/ML 2 ML INJ (08:11)
[2018-01-20] MEDS ORDERED: HYDROmorphONE 2 MG/ML SYG (08:11)
[2018-01-20] MEDS ORDERED: LIDOCAINE 1% (MDV) 20 ML INJ (08:12)
[2018-01-20] MEDS ORDERED: PHENYLephrine (100 MCG/ML) 5ML SYG ×4 (09:27→10:30)
[2018-01-20] MEDS ORDERED: ONDANSETRON 4 MG INJ (09:35)
[2018-01-20] MEDS ORDERED: DEXAMETHASONE 4 MG/ML 1 ML INJ (09:35)
[2018-01-20] MEDS ORDERED: CEFAZOLIN 1 GM INJ (09:41)
[2018-01-20] MEDS ORDERED: FENTAnyl 50 MCG/ML VIAL (10:22)
[2018-01-20] MEDS ORDERED: ALBUMIN HUMAN 5% 250 ML (10:47)
[2018-01-20] MEDS: ALBUMIN HUMAN 5% 250 ML IV (11:07)
[2018-01-20] MEDS: FENTAnyl 50 MCG/ML VIAL IV (11:25)
[2018-01-20] MEDS: MULTIVITAMINS THERAPEUTIC TAB PO (12:30)
[2018-01-20] MEDS: DOCUSATE SODIUM 100 MG CAP PO ×2 (12:30→21:48)
[2018-01-20] MEDS: ONDANSETRON 4 MG INJ IV (21:55)
[2018-01-21] MEDS: HYDROmorphONE 2 MG/ML SYG IV ×11 (00:30→23:33)
[2018-01-21 01:46] LABS: IMMEDIATE SPIN CROSSMATCH 1 2
[2018-01-21] MEDS: DOCUSATE SODIUM 100 MG CAP PO ×2 (09:59→20:54)
[2018-01-21] MEDS: MULTIVITAMINS THERAPEUTIC TAB PO (09:59)
[2018-01-22] MEDS: HYDROmorphONE 2 MG/ML SYG IV ×11 (01:47→22:42)
[2018-01-22 04:55] LABS: WHITE BLOOD COUNT 16.7 10^3/ul (4.8-10.8)
[2018-01-22 04:55] LABS: ABNORMAL IP MESSAGE 1; BASOPHIL # 0.1 10^3/ul (0.0-0.1); BASOPHILS % 0.3 % (0.0-2.0); EOSINOPHILS # 2.7 10^3/ul (0.0-0.5); EOSINOPHILS % 15.9 % (0.0-7.0); HEMATOCRIT 30.1 % (37.0-47.0); HEMOGLOBIN 9.8 g/dl (12.0-16.0); LYMPHOCYTES # 1.5 10^3/ul (0.8-2.9); MEAN CORPUSCULAR HEMOGLOBIN 29.7 pg (29.0-33.0); MEAN CORPUSCULAR HGB CONC 32.6 g/dl (32.0-37.0); MEAN CORPUSCULAR VOLUME 91.2 fl (82.0-101.0); MEAN PLATELET VOLUME 8.4 fl (7.4-10.4); MONOCYTE # 1.1 10^3/ul (0.3-0.9); MONOCYTES % 6.8 % (0.0-11.0); NEUTROPHILS % 65.9 % (39.0-77.0); PLATELET COUNT 216 10^3/UL (140-415); RED CELL DISTRIBUTION WIDTH 17.5 % (11.5-14.5)
[2018-01-22 04:56] LABS: ADD MAN DIFF? NO
[2018-01-22 05:04] LABS: POSITIVE DIFF @See below
[2018-01-22 05:13] LABS: LACTIC ACID 2.9 mmol/L (0.5-2.0)
[2018-01-22] MEDS: SOD CHLORIDE 0.9% 500 ML IV (05:45)
[2018-01-22] MEDS: MULTIVITAMINS THERAPEUTIC TAB PO (08:07)
[2018-01-22] MEDS: DOCUSATE SODIUM 100 MG CAP PO ×2 (08:07→20:42)
[2018-01-22 09:08] LABS: LACTIC ACID 3.5 mmol/L (0.5-2.0)
[2018-01-22 17:45] LABS: ADD UMIC YES; UR ASCORBIC ACID 40 mg/dL (NEGATIVE); UR BILIRUBIN (Dip) NEGATIVE (NEGATIVE); UR BLOOD (Dip) NEGATIVE (NEGATIVE); UR CLARITY SLIGHTLY CLOUDY (CLEAR); UR COLOR YELLOW (YELLOW); UR GLUCOSE (Dip) NEGATIVE (NEGATIVE); UR KETONES (Dip) NEGATIVE (NEGATIVE); UR LEUKOCYTE ESTERASE (Dip) 1+ Leu/ul (NEGATIVE); UR MUCUS MODERATE /HPF (NONE SEEN); UR NITRITE (Dip) NEGATIVE (NEGATIVE); UR RBC 3 /HPF (0-5); UR SPECIFIC GRAVITY (Dip) 1.019 (1.003-1.030); UR TOTAL PROTEIN (Dip) NEGATIVE (NEGATIVE); UR UROBILINOGEN (Dip) NEGATIVE (NEGATIVE); UR WBC 17 /HPF (0-5)
[2018-01-22 17:51] LABS: SODIUM,URINE RANDOM < 13 mmol/L (30-90)
[2018-01-22 20:35] LABS: OSMOLALITY,URINE 670 mOsm/kg (250-1200)
[2018-01-22] MEDS: morphine (ER) 15 MG TAB PO (21:33)
[2018-01-23] MEDS: HYDROmorphONE 2 MG/ML SYG IV ×8 (02:18→23:43)
[2018-01-23 06:22] LABS: ANION GAP 8 (8-16); BLOOD UREA NITROGEN 8 mg/dl (7-20); CALCIUM 7.9 mg/dl (8.4-10.2); CARBON DIOXIDE 26 mmol/L (21-31); CHLORIDE 97 mmol/L (97-110); CREATININE 0.45 mg/dl (0.44-1.00); GLUCOSE 114 mg/dl (70-220); POTASSIUM 4.5 mmol/L (3.5-5.1); SODIUM 126 mmol/L (135-144)
[2018-01-23] MEDS: DOCUSATE SODIUM 100 MG CAP PO ×2 (08:28→21:15)
[2018-01-23] MEDS: MULTIVITAMINS THERAPEUTIC TAB PO (08:29)
[2018-01-23] MEDS: morphine (ER) 15 MG TAB PO ×3 (08:29→22:26)
[2018-01-24] MEDS: HYDROmorphONE 2 MG/ML SYG IV ×8 (04:03→23:22)
[2018-01-24 05:18] LABS: ABNORMAL IP MESSAGE 1; ADD MAN DIFF? NO; BASOPHIL # 0.1 10^3/ul (0.0-0.1); BASOPHILS % 0.2 % (0.0-2.0); EOSINOPHILS # 2.4 10^3/ul (0.0-0.5); EOSINOPHILS % 9.8 % (0.0-7.0); HEMATOCRIT 22.6 % (37.0-47.0); HEMOGLOBIN 7.3 g/dl (12.0-16.0); LYMPHOCYTES % 8.4 % (15.0-51.0); MEAN CORPUSCULAR HEMOGLOBIN 29.8 pg (29.0-33.0); MEAN CORPUSCULAR HGB CONC 32.3 g/dl (32.0-37.0); MEAN CORPUSCULAR VOLUME 92.2 fl (82.0-101.0); MEAN PLATELET VOLUME 8.5 fl (7.4-10.4); MONOCYTE # 1.8 10^3/ul (0.3-0.9); MONOCYTES % 7.6 % (0.0-11.0); NEUTROPHIL # 17.3 10^3/ul (1.6-7.5); NEUTROPHILS % 71.9 % (39.0-77.0); PLATELET COUNT 241 10^3/UL (140-415); RED BLOOD COUNT 2.45 10^6/ul (4.20-5.40); RED CELL DISTRIBUTION WIDTH 16.7 % (11.5-14.5)
[2018-01-24 05:18] LABS: WHITE BLOOD COUNT 24.1 10^3/ul (4.8-10.8)
[2018-01-24 05:39] LABS: POSITIVE DIFF @See below
[2018-01-24 05:40] LABS: ANION GAP 2 (8-16); BLOOD UREA NITROGEN 7 mg/dl (7-20); CALCIUM 7.5 mg/dl (8.4-10.2); CARBON DIOXIDE 29 mmol/L (21-31); CHLORIDE 98 mmol/L (97-110); CREATININE 0.44 mg/dl (0.44-1.00); GLUCOSE 96 mg/dl (70-220); MAGNESIUM 1.7 mg/dl (1.7-2.5); POTASSIUM 4.3 mmol/L (3.5-5.1); SODIUM 125 mmol/L (135-144)
[2018-01-24] MEDS: DOCUSATE SODIUM 100 MG CAP PO ×2 (08:30→21:40)
[2018-01-24] MEDS: morphine (ER) 15 MG TAB PO ×2 (08:31→21:41)
[2018-01-24] MEDS: MULTIVITAMINS THERAPEUTIC TAB PO (08:31)
[2018-01-24 21:27] LABS: IMMEDIATE SPIN CROSSMATCH 1 2
[2018-01-24] MEDS: ONDANSETRON 4 MG INJ IV (23:21)
[2018-01-25] MEDS: HYDROmorphONE 2 MG/ML SYG IV ×8 (02:47→21:37)
[2018-01-25] MEDS: ONDANSETRON 4 MG INJ IV (05:38)
[2018-01-25] MEDS: MULTIVITAMINS THERAPEUTIC TAB PO (08:16)
[2018-01-25] MEDS: DOCUSATE SODIUM 100 MG CAP PO ×2 (08:16→21:03)
[2018-01-25] MEDS: morphine (ER) 15 MG TAB PO ×2 (09:22→21:03)
[2018-01-25 10:59] LABS: ADD MAN DIFF? NO
[2018-01-25 11:13] LABS: WHITE BLOOD COUNT 20.7 10^3/ul (4.8-10.8)
[2018-01-25 11:13] LABS: ABNORMAL IP MESSAGE 1; BASOPHIL # 0.1 10^3/ul (0.0-0.1); BASOPHILS % 0.3 % (0.0-2.0); EOSINOPHILS % 14.7 % (0.0-7.0); HEMATOCRIT 32.9 % (37.0-47.0); LYMPHOCYTES # 1.9 10^3/ul (0.8-2.9); LYMPHOCYTES % 9.1 % (15.0-51.0); MEAN CORPUSCULAR HEMOGLOBIN 29.9 pg (29.0-33.0); MEAN CORPUSCULAR HGB CONC 33.4 g/dl (32.0-37.0); MEAN CORPUSCULAR VOLUME 89.4 fl (82.0-101.0); MEAN PLATELET VOLUME 8.4 fl (7.4-10.4); MONOCYTE # 1.6 10^3/ul (0.3-0.9); MONOCYTES % 7.6 % (0.0-11.0); NEUTROPHIL # 13.6 10^3/ul (1.6-7.5); NEUTROPHILS % 65.9 % (39.0-77.0); PLATELET COUNT 271 10^3/UL (140-415); RED BLOOD COUNT 3.68 10^6/ul (4.20-5.40)
[2018-01-25 11:14] LABS: POSITIVE DIFF @See below
[2018-01-25] MEDS: SOD CHLORIDE 0.9% 1,000 ML IV ×2 (13:09→23:20)
[2018-01-25] MEDS: ONDANSETRON INJ 16 MG, DEXAMETHASONE 4 MG/ML 10 MG, DIPHENHYDRAMINE 25 MG in DEXTROSE 5... IV (15:50)
[2018-01-25] MEDS: CARBOPLATIN IV (16:50)
[2018-01-25] MEDS: SOD CHLORIDE 0.9% IV ×2 (16:50→18:11)
[2018-01-25] MEDS: GEMCITABINE IV (18:11)
[2018-01-26] MEDS: HYDROmorphONE 2 MG/ML SYG IV ×9 (01:17→21:08)
[2018-01-26] MEDS: SOD CHLORIDE 0.9% 1,000 ML IV ×2 (03:27→12:40)
[2018-01-26] MEDS: DOCUSATE SODIUM 100 MG CAP PO ×2 (08:22→21:08)
[2018-01-26] MEDS: MULTIVITAMINS THERAPEUTIC TAB PO (08:22)
[2018-01-26] MEDS: morphine (ER) 15 MG TAB PO ×2 (09:40→21:08)
[2018-01-26] MEDS: ONDANSETRON 4 MG INJ IV (16:55)
[2018-01-27] MEDS: HYDROmorphONE 2 MG/ML SYG IV ×8 (00:40→23:34)
[2018-01-27] MEDS: SOD CHLORIDE 0.9% 1,000 ML IV ×3 (05:00→22:56)
[2018-01-27] MEDS: AMIODARONE 150MG/D5W BOLUS 100 ML IV (08:17)
[2018-01-27] MEDS: AMIODARONE 900 MG in DEXTROSE 5% 482 ML IV ×2 (08:33→14:25)
[2018-01-27] MEDS: DOCUSATE SODIUM 100 MG CAP PO ×2 (10:18→20:44)
[2018-01-27] MEDS: morphine (ER) 15 MG TAB PO ×2 (10:18→20:44)
[2018-01-27] MEDS: MULTIVITAMINS THERAPEUTIC TAB PO (10:18)
[2018-01-27] MEDS: MAGNESIUM SULFATE 2 GM/50 ML 50 ML IVPB (13:16)
[2018-01-27] MEDS: ONDANSETRON 4 MG INJ IV (13:48)
[2018-01-27] MEDS: ACETAMINOPHEN 325 MG TAB PO (20:54)
[2018-01-28] MEDS: ONDANSETRON 4 MG INJ IV ×2 (03:28→14:03)
[2018-01-28] MEDS: HYDROmorphONE 2 MG/ML SYG IV ×11 (03:29→21:54)
[2018-01-28 09:01] LABS: ANION GAP 5 (8-16); BLOOD UREA NITROGEN 8 mg/dl (7-20); CALCIUM 7.6 mg/dl (8.4-10.2); CARBON DIOXIDE 27 mmol/L (21-31); CHLORIDE 101 mmol/L (97-110); CREATININE 0.47 mg/dl (0.44-1.00); GLUCOSE 106 mg/dl (70-220); MAGNESIUM 1.9 mg/dl (1.7-2.5); PHOSPHORUS 3.3 mg/dl (2.5-4.9); POTASSIUM 4.3 mmol/L (3.5-5.1); SODIUM 129 mmol/L (135-144)
[2018-01-28 09:28] LABS: WHITE BLOOD COUNT 14.8 10^3/ul (4.8-10.8)
[2018-01-28 09:28] LABS: ABNORMAL IP MESSAGE 1; HEMATOCRIT 31.8 % (37.0-47.0); HEMOGLOBIN 10.5 g/dl (12.0-16.0); MEAN CORPUSCULAR VOLUME 90.9 fl (82.0-101.0); MEAN PLATELET VOLUME 8.4 fl (7.4-10.4); PLATELET COUNT 213 10^3/UL (140-415); RED CELL DISTRIBUTION WIDTH 16.2 % (11.5-14.5)
[2018-01-28 09:30] LABS: ADD MAN DIFF? YES; POSITIVE DIFF @See below
[2018-01-28] MEDS: DOCUSATE SODIUM 100 MG CAP PO ×2 (09:57→21:16)
[2018-01-28] MEDS: MULTIVITAMINS THERAPEUTIC TAB PO (10:02)
[2018-01-28] MEDS: ONDANSETRON 4 MG TAB PO (13:49)
[2018-01-28] MEDS: morphine (ER) 15 MG TAB PO ×2 (13:49→21:17)
[2018-01-28] MEDS: SOD CHLORIDE 0.9% 1,000 ML IV (14:10)
[2018-01-28 15:01] LABS: ANISOCYTOSIS 1+ (0-0); BAND NEUTROPHILS #M 0.7 10^3/ul (0.0-0.6); BAND NEUTROPHILS % (M) 5 % (0-4); EOSINOPHILS % (M) 2 % (0-7); LYMPHOCYTES % (M) 7 % (15-51); MICROCYTOSIS 1+ (0-0); PLATELET ESTIMATE NORMAL; POLYCHROMASIA 3+ (0-0); SEG NEUT #M 12.8 10^3/ul (1.6-7.5); SEGMENTED NEUTROPHILS (M) % 86 % (39-77); SMUDGE%M 16 % (0-0)
[2018-01-28] MEDS: DIPHENHYDRAMINE 50 MG INJ IV (19:41)
[2018-01-29] MEDS: HYDROmorphONE 2 MG/ML SYG IV ×11 (00:12→23:01)
[2018-01-29] MEDS: SOD CHLORIDE 0.9% 1,000 ML IV ×2 (05:58→20:53)
[2018-01-29] MEDS: DOCUSATE SODIUM 100 MG CAP PO ×2 (07:58→20:50)
[2018-01-29] MEDS: MULTIVITAMINS THERAPEUTIC TAB PO (07:58)
[2018-01-29] MEDS: morphine (ER) 15 MG TAB PO ×2 (07:59→22:00)
[2018-01-29] MEDS: ONDANSETRON 4 MG INJ IV ×2 (11:52→18:06)
[2018-01-30] MEDS: HYDROmorphONE 2 MG/ML SYG IV ×10 (01:11→22:47)
[2018-01-30] MEDS: ONDANSETRON 4 MG INJ IV ×3 (08:04→22:17)
[2018-01-30] MEDS: DOCUSATE SODIUM 100 MG CAP PO ×2 (08:05→20:50)
[2018-01-30] MEDS: MULTIVITAMINS THERAPEUTIC TAB PO (08:05)
[2018-01-30] MEDS: morphine (ER) 15 MG TAB PO ×2 (09:14→20:50)
[2018-01-30] MEDS: SOD CHLORIDE 0.9% 1,000 ML IV ×2 (10:00→11:53)
[2018-01-30] MEDS: IOHEXOL 100 ML (11:30)
[2018-01-30] MEDS: SOD CHLORIDE 0.9% 100 ML (11:31)
[2018-01-30] MEDS: SOD CHLORIDE 0.9% 500 ML IV (22:17)
[2018-01-31] MEDS: SOD CHLORIDE 0.9% 1,000 ML IV (00:47)
[2018-01-31] MEDS: HYDROmorphONE 2 MG/ML SYG IV ×10 (00:47→22:14)
[2018-01-31] MEDS: MULTIVITAMINS THERAPEUTIC TAB PO (08:53)
[2018-01-31] MEDS: DOCUSATE SODIUM 100 MG CAP PO ×2 (08:53→22:13)
[2018-01-31] MEDS: morphine (ER) 15 MG TAB PO ×2 (08:53→22:13)
[2018-01-31] MEDS: LIDOCAINE 5% PATCH TD (11:00)
[2018-01-31] MEDS: ONDANSETRON 4 MG INJ IV ×2 (16:36→22:14)
[2018-01-31] MEDS: DIPHENHYDRAMINE 50 MG INJ IV (17:57)
[2018-02-01] MEDS: HYDROmorphONE 2 MG/ML SYG IV ×9 (00:36→22:18)
[2018-02-01] MEDS: DOCUSATE SODIUM 100 MG CAP PO ×2 (10:42→20:38)
[2018-02-01] MEDS: MULTIVITAMINS THERAPEUTIC TAB PO (10:42)
[2018-02-01] MEDS: LIDOCAINE 5% PATCH TD (10:42)
[2018-02-01] MEDS: ONDANSETRON 4 MG INJ IV (10:42)
[2018-02-01] MEDS: morphine (ER) 15 MG TAB PO ×2 (10:42→20:43)
[2018-02-01] MEDS: DIPHENHYDRAMINE 50 MG INJ IV ×2 (12:53→23:56)
[2018-02-01] MEDS: SOD CHLORIDE 0.9% 1,000 ML IV ×2 (14:45→20:58)
[2018-02-01] MEDS ORDERED: MEPERIDINE 50 MG INJ IV (15:00)
[2018-02-01] MEDS ORDERED: SOD CHLORIDE 0.9% 1,000 ML IV (15:30)
[2018-02-01] MEDS: ONDANSETRON INJ 16 MG, DEXAMETHASONE 10 MG/ML 10 MG in DEXTROSE 5% 50 ML IVPB (16:00)
[2018-02-01] MEDS: COLLAGENASE 5 GM (UD JAR) TOP (16:52)
[2018-02-01] MEDS ORDERED: CARBOPLATIN IV (18:00)
[2018-02-01] MEDS ORDERED: SOD CHLORIDE 0.9% IV (18:00)
[2018-02-01 18:53] LABS: ADD MAN DIFF? NO
[2018-02-01 19:17] LABS: ABNORMAL IP MESSAGE 1; BASOPHILS % 0.1 % (0.0-2.0); EOSINOPHILS # 0.8 10^3/ul (0.0-0.5); HEMATOCRIT 26.5 % (37.0-47.0); HEMOGLOBIN 8.9 g/dl (12.0-16.0); LYMPHOCYTES % 10.1 % (15.0-51.0); MEAN CORPUSCULAR HEMOGLOBIN 29.6 pg (29.0-33.0); MEAN CORPUSCULAR HGB CONC 33.6 g/dl (32.0-37.0); MEAN PLATELET VOLUME 8.2 fl (7.4-10.4); MONOCYTE # 0.8 10^3/ul (0.3-0.9); MONOCYTES % 8.7 % (0.0-11.0); NEUTROPHIL # 6.9 10^3/ul (1.6-7.5); NEUTROPHILS % 71.7 % (39.0-77.0); PLATELET COUNT 50 10^3/UL (140-415); RED BLOOD COUNT 3.01 10^6/ul (4.20-5.40); RED CELL DISTRIBUTION WIDTH 15.3 % (11.5-14.5)
[2018-02-01 19:17] LABS: WHITE BLOOD COUNT 9.6 10^3/ul (4.8-10.8)
[2018-02-01 19:18] LABS: ALANINE AMINOTRANSFERASE 55 IU/L (13-69); ALBUMIN 1.9 g/dl (3.3-4.9); ALBUMIN/GLOBULIN RATIO 0.63; ALKALINE PHOSPHATASE 174 IU/L (42-121); ANION GAP 3 (8-16); ASPARTATE AMINO TRANSFERASE 57 IU/L (15-46); BILIRUBIN,INDIRECT 0.1 mg/dl (0-1.1); BILIRUBIN,TOTAL 0.1 mg/dl (0.2-1.3); BLOOD UREA NITROGEN 8 mg/dl (7-20); CALCIUM 7.6 mg/dl (8.4-10.2); CARBON DIOXIDE 28 mmol/L (21-31); CHLORIDE 99 mmol/L (97-110); CREATININE 0.45 mg/dl (0.44-1.00); GLUCOSE 102 mg/dl (70-220); POTASSIUM 4.3 mmol/L (3.5-5.1); SODIUM 126 mmol/L (135-144); TOTAL PROTEIN 4.9 g/dl (6.1-8.1)
[2018-02-01 19:21] LABS: POSITIVE DIFF @See below
[2018-02-01] MEDS: ACETAMINOPHEN 325 MG TAB PO (20:38)
[2018-02-01 21:20] LABS: ANISOCYTOSIS 2+ (0-0); EOSINOPHILS % (M) 8 % (0-7); LYMPHOCYTES #M 1.1 10^3/ul (0.8-2.9); LYMPHOCYTES % (M) 12 % (15-51); MICROCYTOSIS 2+ (0-0); MONOCYTE #M 0.8 10^3/ul (0.3-0.9); MONOCYTES % (M) 9 % (0-11); PLATELET MORPHOLOGY COMMENT @See below; SEGMENTED NEUTROPHILS (M) % 71 % (39-77); SMUDGE%M 4 % (0-0)
[2018-02-02] MEDS: HYDROmorphONE 2 MG/ML SYG IV ×10 (00:19→23:07)
[2018-02-02] MEDS: ONDANSETRON INJ 16 MG, DEXAMETHASONE 10 MG/ML 10 MG in DEXTROSE 5% 50 ML IVPB ×2 (00:49→16:45)
[2018-02-02] MEDS: DIPHENHYDRAMINE 50 MG INJ IV ×4 (01:24→21:41)
[2018-02-02] MEDS: SOD CHLORIDE 0.9% IV ×2 (01:26→16:44)
[2018-02-02] MEDS: GEMCITABINE IV (01:26)
[2018-02-02] MEDS: COLLAGENASE 5 GM (UD JAR) TOP (08:38)
[2018-02-02] MEDS: morphine (ER) 15 MG TAB PO ×2 (08:38→20:40)
[2018-02-02] MEDS: LIDOCAINE 5% PATCH TD ×2 (08:38→09:00)
[2018-02-02] MEDS: DOCUSATE SODIUM 100 MG CAP PO ×2 (08:38→20:39)
[2018-02-02] MEDS: MULTIVITAMINS THERAPEUTIC TAB PO (08:38)
[2018-02-02 08:53] LABS: WHITE BLOOD COUNT 10.9 10^3/ul (4.8-10.8)
[2018-02-02 08:53] LABS: ABNORMAL IP MESSAGE 1; HEMATOCRIT 29.8 % (37.0-47.0); HEMOGLOBIN 9.8 g/dl (12.0-16.0); MEAN CORPUSCULAR HEMOGLOBIN 29.4 pg (29.0-33.0); MEAN CORPUSCULAR HGB CONC 32.9 g/dl (32.0-37.0); MEAN CORPUSCULAR VOLUME 89.5 fl (82.0-101.0); MEAN PLATELET VOLUME 9.7 fl (7.4-10.4); PLATELET COUNT 56 10^3/UL (140-415); RED BLOOD COUNT 3.33 10^6/ul (4.20-5.40); RED CELL DISTRIBUTION WIDTH 15.1 % (11.5-14.5)
[2018-02-02 09:03] LABS: ADD MAN DIFF? YES; POSITIVE DIFF @See below
[2018-02-02 09:22] LABS: ALANINE AMINOTRANSFERASE 51 IU/L (13-69); ALBUMIN 2.3 g/dl (3.3-4.9); ALBUMIN/GLOBULIN RATIO 0.71; ALKALINE PHOSPHATASE 178 IU/L (42-121); ANION GAP 11 (8-16); ASPARTATE AMINO TRANSFERASE 43 IU/L (15-46); BILIRUBIN,INDIRECT 0.2 mg/dl (0-1.1); BILIRUBIN,TOTAL 0.2 mg/dl (0.2-1.3); BLOOD UREA NITROGEN 7 mg/dl (7-20); CALCIUM 7.7 mg/dl (8.4-10.2); CARBON DIOXIDE 23 mmol/L (21-31); CHLORIDE 103 mmol/L (97-110); CREATININE 0.41 mg/dl (0.44-1.00); GLUCOSE 160 mg/dl (70-220); POTASSIUM 4.4 mmol/L (3.5-5.1); SODIUM 133 mmol/L (135-144); TOTAL PROTEIN 5.5 g/dl (6.1-8.1)
[2018-02-02 10:40] LABS: ACANTHOCYTES 1+ (0-0); ANISOCYTOSIS 1+ (0-0); BAND NEUTROPHILS #M 0.3 10^3/ul (0.0-0.6); BAND NEUTROPHILS % (M) 3 % (0-4); LYMPHOCYTES #M 0.2 10^3/ul (0.8-2.9); LYMPHOCYTES % (M) 2 % (15-51); MICROCYTOSIS 1+ (0-0); PLATELET ESTIMATE NORMAL; PLATELET MORPHOLOGY COMMENT @See below; POIKILOCYTOSIS 1+ (0-0); POLYCHROMASIA 1+ (0-0); SEG NEUT #M 10.4 10^3/ul (1.6-7.5); SEGMENTED NEUTROPHILS (M) % 95 % (39-77)
[2018-02-02] MEDS: SOD CHLORIDE 0.9% 1,000 ML IV (11:21)
[2018-02-02] MEDS ORDERED: SOD CHLORIDE 0.9% IV (15:00)
[2018-02-02] MEDS ORDERED: CARBOPLATIN IV (15:00)
[2018-02-02] MEDS: CARBOPLATIN IV (16:44)
[2018-02-02] MEDS: ONDANSETRON 4 MG INJ IV (19:05)
[2018-02-03] MEDS: HYDROmorphONE 2 MG/ML SYG IV ×11 (01:00→22:24)
[2018-02-03] MEDS: SOD CHLORIDE 0.9% 1,000 ML IV ×2 (01:04→14:09)
[2018-02-03 05:23] LABS: ADD MAN DIFF? NO
[2018-02-03 05:28] LABS: WHITE BLOOD COUNT 9.8 10^3/ul (4.8-10.8)
[2018-02-03 05:28] LABS: ABNORMAL IP MESSAGE 1; HEMATOCRIT 26.8 % (37.0-47.0); HEMOGLOBIN 8.8 g/dl (12.0-16.0); LYMPHOCYTES # 0.4 10^3/ul (0.8-2.9); LYMPHOCYTES % 4.5 % (15.0-51.0); MEAN CORPUSCULAR HEMOGLOBIN 29.7 pg (29.0-33.0); MEAN CORPUSCULAR HGB CONC 32.8 g/dl (32.0-37.0); MEAN CORPUSCULAR VOLUME 90.5 fl (82.0-101.0); MEAN PLATELET VOLUME 8.7 fl (7.4-10.4); MONOCYTE # 0.4 10^3/ul (0.3-0.9); MONOCYTES % 4.1 % (0.0-11.0); NEUTROPHIL # 8.9 10^3/ul (1.6-7.5); NEUTROPHILS % 90.7 % (39.0-77.0); PLATELET COUNT 59 10^3/UL (140-415); RED BLOOD COUNT 2.96 10^6/ul (4.20-5.40); RED CELL DISTRIBUTION WIDTH 15.1 % (11.5-14.5)
[2018-02-03 05:32] LABS: POSITIVE DIFF @See below
[2018-02-03 05:47] LABS: ALANINE AMINOTRANSFERASE 43 IU/L (13-69); ALBUMIN/GLOBULIN RATIO 0.66; ALKALINE PHOSPHATASE 144 IU/L (42-121); ANION GAP 7 (8-16); ASPARTATE AMINO TRANSFERASE 31 IU/L (15-46); BILIRUBIN,INDIRECT 0.1 mg/dl (0-1.1); BILIRUBIN,TOTAL 0.1 mg/dl (0.2-1.3); BLOOD UREA NITROGEN 10 mg/dl (7-20); CALCIUM 7.3 mg/dl (8.4-10.2); CARBON DIOXIDE 26 mmol/L (21-31); CHLORIDE 104 mmol/L (97-110); CREATININE 0.45 mg/dl (0.44-1.00); GLUCOSE 124 mg/dl (70-220); POTASSIUM 4.7 mmol/L (3.5-5.1); SODIUM 132 mmol/L (135-144)
[2018-02-03] MEDS: DIPHENHYDRAMINE 50 MG INJ IV ×3 (07:00→22:24)
[2018-02-03] MEDS: LIDOCAINE 5% PATCH TD ×2 (09:00→22:24)
[2018-02-03] MEDS: morphine (ER) 15 MG TAB PO ×2 (09:48→22:08)
[2018-02-03] MEDS: DOCUSATE SODIUM 100 MG CAP PO ×2 (09:48→22:08)
[2018-02-03] MEDS: MULTIVITAMINS THERAPEUTIC TAB PO (09:48)
[2018-02-03] MEDS: COLLAGENASE 5 GM (UD JAR) TOP (09:49)
[2018-02-03] MEDS: ONDANSETRON 4 MG INJ IV (16:56)
[2018-02-03 17:48] LABS: OSMOLALITY,URINE 731 mOsm/kg (250-1200)
[2018-02-03 17:54] LABS: CREATININE,URINE RANDOM 71.41 mg/dl (20-320)
[2018-02-03 17:55] LABS: SODIUM,URINE RANDOM < 5 mmol/L (30-90)
[2018-02-04] MEDS: HYDROmorphONE 2 MG/ML SYG IV ×11 (01:24→22:32)
[2018-02-04] MEDS: ONDANSETRON 4 MG INJ IV ×3 (04:10→16:26)
[2018-02-04 05:29] LABS: ADD MAN DIFF? NO
[2018-02-04 05:31] LABS: ABNORMAL IP MESSAGE 1; BASOPHILS % 0.1 % (0.0-2.0); EOSINOPHILS # 0.3 10^3/ul (0.0-0.5); EOSINOPHILS % 3.6 % (0.0-7.0); HEMATOCRIT 23.9 % (37.0-47.0); HEMOGLOBIN 7.8 g/dl (12.0-16.0); LYMPHOCYTES # 0.5 10^3/ul (0.8-2.9); LYMPHOCYTES % 6.6 % (15.0-51.0); MEAN CORPUSCULAR HEMOGLOBIN 29.8 pg (29.0-33.0); MEAN CORPUSCULAR HGB CONC 32.6 g/dl (32.0-37.0); MEAN CORPUSCULAR VOLUME 91.2 fl (82.0-101.0); MEAN PLATELET VOLUME 9.6 fl (7.4-10.4); MONOCYTE # 0.1 10^3/ul (0.3-0.9); MONOCYTES % 0.7 % (0.0-11.0); NEUTROPHIL # 6.6 10^3/ul (1.6-7.5); NEUTROPHILS % 88.2 % (39.0-77.0); PLATELET COUNT 67 10^3/UL (140-415); RED BLOOD COUNT 2.62 10^6/ul (4.20-5.40); RED CELL DISTRIBUTION WIDTH 15.7 % (11.5-14.5)
[2018-02-04 05:31] LABS: WHITE BLOOD COUNT 7.5 10^3/ul (4.8-10.8)
[2018-02-04 05:39] LABS: POSITIVE DIFF @See below
[2018-02-04 06:01] LABS: ALANINE AMINOTRANSFERASE 53 IU/L (13-69); ALBUMIN 1.8 g/dl (3.3-4.9); ALBUMIN/GLOBULIN RATIO 0.66; ALKALINE PHOSPHATASE 109 IU/L (42-121); ANION GAP 6 (8-16); ASPARTATE AMINO TRANSFERASE 53 IU/L (15-46); BILIRUBIN,INDIRECT 0.2 mg/dl (0-1.1); BILIRUBIN,TOTAL 0.2 mg/dl (0.2-1.3); BLOOD UREA NITROGEN 10 mg/dl (7-20); CALCIUM 7.6 mg/dl (8.4-10.2); CARBON DIOXIDE 26 mmol/L (21-31); CHLORIDE 105 mmol/L (97-110); CREATININE 0.43 mg/dl (0.44-1.00); GLUCOSE 89 mg/dl (70-220); POTASSIUM 4.6 mmol/L (3.5-5.1); SODIUM 132 mmol/L (135-144); TOTAL PROTEIN 4.5 g/dl (6.1-8.1)
[2018-02-04 08:20] LABS: OSMOLALITY 269 mOsm/kg (280-295)
[2018-02-04] MEDS: DOCUSATE SODIUM 100 MG CAP PO ×2 (08:25→20:14)
[2018-02-04] MEDS: MULTIVITAMINS THERAPEUTIC TAB PO (08:25)
[2018-02-04] MEDS: morphine (ER) 15 MG TAB PO ×2 (08:26→20:14)
[2018-02-04] MEDS: COLLAGENASE 5 GM (UD JAR) TOP (08:26)
[2018-02-04] MEDS: DIPHENHYDRAMINE 50 MG INJ IV ×2 (08:37→17:32)
[2018-02-05] MEDS: HYDROmorphONE 2 MG/ML SYG IV ×10 (00:19→22:11)
[2018-02-05] MEDS: DIPHENHYDRAMINE 50 MG INJ IV ×5 (01:04→20:16)
[2018-02-05] MEDS: ONDANSETRON 4 MG INJ IV ×2 (01:04→20:16)
[2018-02-05 05:30] LABS: ABNORMAL IP MESSAGE 1; HEMATOCRIT 26.3 % (37.0-47.0); HEMOGLOBIN 8.5 g/dl (12.0-16.0); MEAN CORPUSCULAR HEMOGLOBIN 29.7 pg (29.0-33.0); MEAN CORPUSCULAR HGB CONC 32.3 g/dl (32.0-37.0); MEAN PLATELET VOLUME 8.6 fl (7.4-10.4); PLATELET COUNT 86 10^3/UL (140-415); RED BLOOD COUNT 2.86 10^6/ul (4.20-5.40); RED CELL DISTRIBUTION WIDTH 15.5 % (11.5-14.5)
[2018-02-05 05:37] LABS: ADD MAN DIFF? YES; POSITIVE DIFF @See below
[2018-02-05 05:41] LABS: PHOSPHORUS 3.2 mg/dl (2.5-4.9)
[2018-02-05 05:41] LABS: MAGNESIUM 1.5 mg/dl (1.7-2.5)
[2018-02-05 05:53] LABS: ALANINE AMINOTRANSFERASE 130 IU/L (13-69); ALBUMIN 1.9 g/dl (3.3-4.9); ALKALINE PHOSPHATASE 140 IU/L (42-121); ANION GAP 6 (8-16); ASPARTATE AMINO TRANSFERASE 197 IU/L (15-46); BILIRUBIN,INDIRECT 0.2 mg/dl (0-1.1); BILIRUBIN,TOTAL 0.2 mg/dl (0.2-1.3); BLOOD UREA NITROGEN 7 mg/dl (7-20); CALCIUM 7.7 mg/dl (8.4-10.2); CARBON DIOXIDE 27 mmol/L (21-31); CHLORIDE 103 mmol/L (97-110); CREATININE 0.38 mg/dl (0.44-1.00); GLUCOSE 146 mg/dl (70-220); POTASSIUM 3.6 mmol/L (3.5-5.1); SODIUM 132 mmol/L (135-144); TOTAL PROTEIN 4.6 g/dl (6.1-8.1)
[2018-02-05] MEDS: COLLAGENASE 5 GM (UD JAR) TOP (08:52)
[2018-02-05] MEDS: morphine (ER) 15 MG TAB PO ×2 (08:54→21:43)
[2018-02-05] MEDS: DOCUSATE SODIUM 100 MG CAP PO ×2 (08:54→20:16)
[2018-02-05] MEDS: MULTIVITAMINS THERAPEUTIC TAB PO (08:54)
[2018-02-05] MEDS: LIDOCAINE 5% PATCH TD (09:00)
[2018-02-05 09:36] LABS: ANISOCYTOSIS 2+ (0-0); BASOPHIL #M 0.1 10^3/ul (0.0-0.0); BASOPHILS % (M) 1 % (0-2); EOSINOPHILS % (M) 4 % (0-7); LYMPHOCYTES #M 0.6 10^3/ul (0.8-2.9); LYMPHOCYTES % (M) 5 % (15-51); PLATELET ESTIMATE DECREASED; POLYCHROMASIA 1+ (0-0); SEGMENTED NEUTROPHILS (M) % 90 % (39-77); SMUDGE%M 6 % (0-0)
[2018-02-05] MEDS: MAGNESIUM OXIDE 400 MG TAB PO (13:36)
[2018-02-06] MEDS: HYDROmorphONE 2 MG/ML SYG IV ×12 (00:12→23:19)
[2018-02-06] MEDS: DIPHENHYDRAMINE 50 MG INJ IV ×6 (00:24→23:17)
[2018-02-06 05:46] LABS: ADD MAN DIFF? NO
[2018-02-06 05:48] LABS: ABNORMAL IP MESSAGE 1; BASOPHILS % 0.1 % (0.0-2.0); EOSINOPHILS # 0.4 10^3/ul (0.0-0.5); EOSINOPHILS % 5.7 % (0.0-7.0); HEMATOCRIT 24.4 % (37.0-47.0); LYMPHOCYTES # 0.6 10^3/ul (0.8-2.9); LYMPHOCYTES % 8.4 % (15.0-51.0); MEAN CORPUSCULAR HGB CONC 32.8 g/dl (32.0-37.0); MEAN CORPUSCULAR VOLUME 91.4 fl (82.0-101.0); MONOCYTE # 0.1 10^3/ul (0.3-0.9); MONOCYTES % 1.4 % (0.0-11.0); NEUTROPHIL # 5.8 10^3/ul (1.6-7.5); NEUTROPHILS % 82.4 % (39.0-77.0); PLATELET COUNT 69 10^3/UL (140-415); RED BLOOD COUNT 2.67 10^6/ul (4.20-5.40); RED CELL DISTRIBUTION WIDTH 15.6 % (11.5-14.5)
[2018-02-06 05:48] LABS: WHITE BLOOD COUNT 7.1 10^3/ul (4.8-10.8)
[2018-02-06 05:52] LABS: POSITIVE DIFF @See below
[2018-02-06 06:17] LABS: ALANINE AMINOTRANSFERASE 115 IU/L (13-69); ALBUMIN 1.8 g/dl (3.3-4.9); ALBUMIN/GLOBULIN RATIO 0.62; ALKALINE PHOSPHATASE 147 IU/L (42-121); ANION GAP 5 (8-16); ASPARTATE AMINO TRANSFERASE 105 IU/L (15-46); BILIRUBIN,INDIRECT 0.2 mg/dl (0-1.1); BILIRUBIN,TOTAL 0.2 mg/dl (0.2-1.3); BLOOD UREA NITROGEN 6 mg/dl (7-20); CALCIUM 7.7 mg/dl (8.4-10.2); CARBON DIOXIDE 29 mmol/L (21-31); CHLORIDE 99 mmol/L (97-110); CREATININE 0.36 mg/dl (0.44-1.00); GLUCOSE 105 mg/dl (70-220); POTASSIUM 4.2 mmol/L (3.5-5.1); SODIUM 129 mmol/L (135-144); TOTAL PROTEIN 4.7 g/dl (6.1-8.1)
[2018-02-06] MEDS: ONDANSETRON 4 MG INJ IV ×3 (06:45→21:13)
[2018-02-06] MEDS: DOCUSATE SODIUM 100 MG CAP PO ×2 (09:45→20:39)
[2018-02-06] MEDS: LIDOCAINE 5% PATCH TD (09:45)
[2018-02-06] MEDS: MULTIVITAMINS THERAPEUTIC TAB PO (09:45)
[2018-02-06] MEDS: COLLAGENASE 5 GM (UD JAR) TOP (09:45)
[2018-02-06] MEDS: morphine (ER) 15 MG TAB PO ×2 (10:09→20:39)
[2018-02-07] MEDS: HYDROmorphONE 2 MG/ML SYG IV ×5 (01:46→12:17)
[2018-02-07] MEDS: ONDANSETRON 4 MG INJ IV ×4 (03:44→22:32)
[2018-02-07] MEDS: DIPHENHYDRAMINE 50 MG INJ IV ×4 (03:47→18:31)
[2018-02-07 05:29] LABS: ABNORMAL IP MESSAGE 1; HEMATOCRIT 21.5 % (37.0-47.0); HEMOGLOBIN 7.1 g/dl (12.0-16.0); MEAN CORPUSCULAR VOLUME 90.7 fl (82.0-101.0); MEAN PLATELET VOLUME 10.5 fl (7.4-10.4); PLATELET COUNT 59 10^3/UL (140-415); RED BLOOD COUNT 2.37 10^6/ul (4.20-5.40); RED CELL DISTRIBUTION WIDTH 15.4 % (11.5-14.5)
[2018-02-07 05:29] LABS: WHITE BLOOD COUNT 3.8 10^3/ul (4.8-10.8)
[2018-02-07 05:39] LABS: POSITIVE DIFF @See below
[2018-02-07 05:40] LABS: ADD MAN DIFF? YES
[2018-02-07 05:41] LABS: MAGNESIUM 1.5 mg/dl (1.7-2.5)
[2018-02-07 05:41] LABS: PHOSPHORUS 3.1 mg/dl (2.5-4.9)
[2018-02-07 05:44] LABS: ALANINE AMINOTRANSFERASE 84 IU/L (13-69); ALBUMIN/GLOBULIN RATIO 0.68; ALKALINE PHOSPHATASE 190 IU/L (42-121); ANION GAP 9 (8-16); ASPARTATE AMINO TRANSFERASE 56 IU/L (15-46); BILIRUBIN,INDIRECT 0.2 mg/dl (0-1.1); BILIRUBIN,TOTAL 0.2 mg/dl (0.2-1.3); BLOOD UREA NITROGEN 7 mg/dl (7-20); CALCIUM 7.4 mg/dl (8.4-10.2); CARBON DIOXIDE 27 mmol/L (21-31); CHLORIDE 99 mmol/L (97-110); CREATININE 0.39 mg/dl (0.44-1.00); GLUCOSE 106 mg/dl (70-220); POTASSIUM 4.5 mmol/L (3.5-5.1); SODIUM 130 mmol/L (135-144); TOTAL PROTEIN 4.9 g/dl (6.1-8.1)
[2018-02-07 07:29] LABS: ANISOCYTOSIS 2+ (0-0); BAND NEUTROPHILS % (M) 1 % (0-4); EOSINOPHILS % (M) 6 % (0-7); LYMPHOCYTES #M 1.2 10^3/ul (0.8-2.9); LYMPHOCYTES % (M) 33 % (15-51); MICROCYTOSIS 2+ (0-0); MONOCYTE #M 0.2 10^3/ul (0.3-0.9); MONOCYTES % (M) 6 % (0-11); PLATELET ESTIMATE DECREASED; SEG NEUT #M 2.1 10^3/ul (1.6-7.5); SEGMENTED NEUTROPHILS (M) % 54 % (39-77)
[2018-02-07] MEDS: MULTIVITAMINS THERAPEUTIC TAB PO (09:41)
[2018-02-07] MEDS: morphine (ER) 15 MG TAB PO (09:41)
[2018-02-07] MEDS: DOCUSATE SODIUM 100 MG CAP PO ×2 (09:42→20:43)
[2018-02-07] MEDS: COLLAGENASE 5 GM (UD JAR) TOP (09:42)
[2018-02-07] MEDS ORDERED: DIPHENHYDRAMINE 50 MG INJ IV (14:00)
[2018-02-07] MEDS: MAGNESIUM SULFATE 2 GM/50 ML 50 ML IVPB (15:25)
[2018-02-07 16:29] LABS: IMMEDIATE SPIN CROSSMATCH 1 1
[2018-02-07] MEDS: HYDROmorphONE 0.5 MG/0.5 ML SYG IV ×2 (16:39→20:43)
[2018-02-07] MEDS ORDERED: HYDROmorphONE 2 MG/ML SYG IV (17:00)
[2018-02-07] MEDS: morphine (ER) 30 MG TAB PO (20:43)
[2018-02-08] MEDS: DIPHENHYDRAMINE 50 MG INJ IV ×5 (00:23→20:33)
[2018-02-08] MEDS: HYDROmorphONE 0.5 MG/0.5 ML SYG IV ×6 (00:24→20:32)
[2018-02-08] MEDS: ONDANSETRON 4 MG INJ IV ×2 (04:37→10:50)
[2018-02-08 05:44] LABS: ABNORMAL IP MESSAGE 1; HEMATOCRIT 24.2 % (37.0-47.0); MEAN CORPUSCULAR HEMOGLOBIN 29.2 pg (29.0-33.0); MEAN CORPUSCULAR HGB CONC 33.1 g/dl (32.0-37.0); MEAN CORPUSCULAR VOLUME 88.3 fl (82.0-101.0); MEAN PLATELET VOLUME 11.5 fl (7.4-10.4); PLATELET COUNT 40 10^3/UL (140-415); RED BLOOD COUNT 2.74 10^6/ul (4.20-5.40); RED CELL DISTRIBUTION WIDTH 15.9 % (11.5-14.5)
[2018-02-08 05:44] LABS: WHITE BLOOD COUNT 4.1 10^3/ul (4.8-10.8)
[2018-02-08 05:46] LABS: ADD MAN DIFF? YES; POSITIVE DIFF @See below
[2018-02-08 06:02] LABS: ALANINE AMINOTRANSFERASE 54 IU/L (13-69); ALBUMIN 1.9 g/dl (3.3-4.9); ALKALINE PHOSPHATASE 158 IU/L (42-121); ANION GAP 7 (8-16); ASPARTATE AMINO TRANSFERASE 35 IU/L (15-46); BILIRUBIN,INDIRECT 0.2 mg/dl (0-1.1); BILIRUBIN,TOTAL 0.2 mg/dl (0.2-1.3); BLOOD UREA NITROGEN 7 mg/dl (7-20); CALCIUM 7.1 mg/dl (8.4-10.2); CARBON DIOXIDE 29 mmol/L (21-31); CHLORIDE 99 mmol/L (97-110); CREATININE 0.46 mg/dl (0.44-1.00); GLUCOSE 108 mg/dl (70-220); POTASSIUM 4.1 mmol/L (3.5-5.1); SODIUM 131 mmol/L (135-144); TOTAL PROTEIN 4.6 g/dl (6.1-8.1)
[2018-02-08] MEDS: ACETAMINOPHEN 325 MG TAB PO ×2 (06:35→19:26)
[2018-02-08 07:59] LABS: ANISOCYTOSIS 2+ (0-0); BAND NEUTROPHILS #M 0.5 10^3/ul (0.0-0.6); BAND NEUTROPHILS % (M) 14 % (0-4); EOSINOPHILS % (M) 3 % (0-7); LYMPHOCYTES #M 0.5 10^3/ul (0.8-2.9); LYMPHOCYTES % (M) 14 % (15-51); METAMYELOCYTES %M 1 % (0-0); MICROCYTOSIS 2+ (0-0); MONOCYTE #M 0.4 10^3/ul (0.3-0.9); MONOCYTES % (M) 10 % (0-11); PLATELET ESTIMATE DECREASED; REACTIVE LYMPHOCYTES% (M) 1 % (0-0); SEG NEUT #M 2.4 10^3/ul (1.6-7.5); SEGMENTED NEUTROPHILS (M) % 57 % (39-77); SMUDGE%M 2 % (0-0)
[2018-02-08] MEDS: MULTIVITAMINS THERAPEUTIC TAB PO (08:29)
[2018-02-08] MEDS: DOCUSATE SODIUM 100 MG CAP PO ×2 (08:30→20:33)
[2018-02-08] MEDS: COLLAGENASE 5 GM (UD JAR) TOP (08:30)
[2018-02-08] MEDS: morphine (ER) 30 MG TAB PO ×2 (08:30→21:14)
[2018-02-08] MEDS: ONDANSETRON 4 MG TAB PO (17:41)
[2018-02-08] MEDS: LIDOCAINE 5% PATCH TD (18:36)
[2018-02-09] MEDS: HYDROmorphONE 0.5 MG/0.5 ML SYG IV ×6 (00:35→20:58)
[2018-02-09] MEDS: DIPHENHYDRAMINE 50 MG INJ IV ×3 (00:36→08:43)
[2018-02-09] MEDS: ONDANSETRON 4 MG INJ IV ×2 (02:11→11:57)
[2018-02-09 05:32] LABS: ABNORMAL IP MESSAGE 1; HEMATOCRIT 24.9 % (37.0-47.0); HEMOGLOBIN 8.2 g/dl (12.0-16.0); MEAN CORPUSCULAR HEMOGLOBIN 28.9 pg (29.0-33.0); MEAN CORPUSCULAR HGB CONC 32.9 g/dl (32.0-37.0); MEAN CORPUSCULAR VOLUME 87.7 fl (82.0-101.0); MEAN PLATELET VOLUME 11.6 fl (7.4-10.4); RED BLOOD COUNT 2.84 10^6/ul (4.20-5.40); RED CELL DISTRIBUTION WIDTH 15.9 % (11.5-14.5)
[2018-02-09 05:53] LABS: ANION GAP 10 (8-16); BLOOD UREA NITROGEN 5 mg/dl (7-20); CALCIUM 7.1 mg/dl (8.4-10.2); CARBON DIOXIDE 26 mmol/L (21-31); CHLORIDE 99 mmol/L (97-110); CREATININE 0.45 mg/dl (0.44-1.00); GLUCOSE 115 mg/dl (70-220); POTASSIUM 3.8 mmol/L (3.5-5.1); SODIUM 131 mmol/L (135-144)
[2018-02-09 05:56] LABS: POSITIVE DIFF @See below
[2018-02-09 05:57] LABS: ADD MAN DIFF? YES
[2018-02-09 05:59] LABS: PLATELET COUNT 26 10^3/UL (140-415)
[2018-02-09 06:02] LABS: MAGNESIUM 1.5 mg/dl (1.7-2.5)
[2018-02-09 07:12] LABS: ANISOCYTOSIS 2+ (0-0); BAND NEUTROPHILS #M 0.5 10^3/ul (0.0-0.6); BAND NEUTROPHILS % (M) 9 % (0-4); EOSINOPHILS % (M) 11 % (0-7); LYMPHOCYTES #M 1.2 10^3/ul (0.8-2.9); LYMPHOCYTES % (M) 20 % (15-51); MICROCYTOSIS 2+ (0-0); MONOCYTE #M 0.4 10^3/ul (0.3-0.9); MONOCYTES % (M) 8 % (0-11); PLATELET ESTIMATE SIG DECREASED; SEG NEUT #M 3.2 10^3/ul (1.6-7.5); SEGMENTED NEUTROPHILS (M) % 52 % (39-77); SMUDGE%M 13 % (0-0)
[2018-02-09] MEDS: MULTIVITAMINS THERAPEUTIC TAB PO (10:04)
[2018-02-09] MEDS: DOCUSATE SODIUM 100 MG CAP PO ×3 (10:04→20:57)
[2018-02-09] MEDS: COLLAGENASE 5 GM (UD JAR) TOP (10:04)
[2018-02-09] MEDS: morphine (ER) 30 MG TAB PO ×2 (10:04→20:58)
[2018-02-09] MEDS: MAGNESIUM SULFATE 2 GM/50 ML 50 ML IVPB (12:45)
[2018-02-09] MEDS: hydrOXYzine HCL 25 MG TAB PO ×2 (13:53→20:57)
[2018-02-09] MEDS: DIPHENHYDRAMINE 25 MG CAP PO (16:45)
[2018-02-09] MEDS: ONDANSETRON 4 MG TAB PO (17:44)
[2018-02-10] MEDS: HYDROmorphONE 0.5 MG/0.5 ML SYG IV ×6 (01:46→19:56)
[2018-02-10] MEDS: hydrOXYzine HCL 25 MG TAB PO ×2 (04:01→14:22)
[2018-02-10] MEDS: LIDOCAINE 5% PATCH TD (04:04)
[2018-02-10 05:23] LABS: WHITE BLOOD COUNT 9.6 10^3/ul (4.8-10.8)
[2018-02-10 05:23] LABS: ABNORMAL IP MESSAGE 1; MEAN CORPUSCULAR HEMOGLOBIN 28.7 pg (29.0-33.0); MEAN CORPUSCULAR HGB CONC 32.1 g/dl (32.0-37.0); MEAN CORPUSCULAR VOLUME 89.2 fl (82.0-101.0); MEAN PLATELET VOLUME 10.6 fl (7.4-10.4); PLATELET COUNT 44 10^3/UL (140-415); RED BLOOD COUNT 1.57 10^6/ul (4.20-5.40)
[2018-02-10 05:24] LABS: POSITIVE DIFF @See below
[2018-02-10 05:29] LABS: ADD MAN DIFF? YES; HEMOGLOBIN 4.5 g/dl (12.0-16.0)
[2018-02-10 05:34] LABS: PHOSPHORUS 3.4 mg/dl (2.5-4.9)
[2018-02-10 05:34] LABS: MAGNESIUM 1.7 mg/dl (1.7-2.5)
[2018-02-10 05:40] LABS: ANION GAP 9 (8-16); BLOOD UREA NITROGEN 8 mg/dl (7-20); CALCIUM 7.5 mg/dl (8.4-10.2); CARBON DIOXIDE 28 mmol/L (21-31); CHLORIDE 98 mmol/L (97-110); CREATININE 0.44 mg/dl (0.44-1.00); GLUCOSE 111 mg/dl (70-220); POTASSIUM 3.9 mmol/L (3.5-5.1); SODIUM 131 mmol/L (135-144)
[2018-02-10 06:14] LABS: ABNORMAL IP MESSAGE 1; HEMOGLOBIN 8.5 g/dl (12.0-16.0); MEAN CORPUSCULAR HEMOGLOBIN 29.1 pg (29.0-33.0); MEAN CORPUSCULAR HGB CONC 32.7 g/dl (32.0-37.0); MEAN PLATELET VOLUME 11.3 fl (7.4-10.4); PLATELET COUNT 47 10^3/UL (140-415); RED BLOOD COUNT 2.92 10^6/ul (4.20-5.40)
[2018-02-10 06:30] LABS: POSITIVE DIFF @See below
[2018-02-10 06:31] LABS: ADD MAN DIFF? YES
[2018-02-10] MEDS ORDERED: ALPRAZOLAM 1 MG TAB PO (07:00)
[2018-02-10] MEDS: MULTIVITAMINS THERAPEUTIC TAB PO (08:55)
[2018-02-10] MEDS: DOCUSATE SODIUM 100 MG CAP PO ×2 (08:55→22:14)
[2018-02-10] MEDS: morphine (ER) 30 MG TAB PO ×2 (08:55→22:06)
[2018-02-10 09:56] LABS: ANISOCYTOSIS 2+ (0-0); BAND NEUTROPHILS #M 0.5 10^3/ul (0.0-0.6); BAND NEUTROPHILS % (M) 6 % (0-4); EOSINOPHILS % (M) 7 % (0-7); GIANT THROMBO% (M) 1 % (0-0); LYMPHOCYTES % (M) 11 % (15-51); MICROCYTOSIS 2+ (0-0); MONOCYTE #M 1.1 10^3/ul (0.3-0.9); MONOCYTES % (M) 12 % (0-11); PLATELET ESTIMATE SIG DECREASED; POLYCHROMASIA 2+ (0-0); REACTIVE LYMPHOCYTES #M 0.2 10^3/ul (0.0-0.0); REACTIVE LYMPHOCYTES% (M) 3 % (0-0); SEG NEUT #M 5.9 10^3/ul (1.6-7.5); SEGMENTED NEUTROPHILS (M) % 61 % (39-77); SMUDGE%M 2 % (0-0)
[2018-02-10 11:11] LABS: ANISOCYTOSIS 2+ (0-0); BAND NEUTROPHILS #M 0.9 10^3/ul (0.0-0.6); BAND NEUTROPHILS % (M) 12 % (0-4); EOSINOPHILS % (M) 4 % (0-7); GIANT THROMBO% (M) 1 % (0-0); LYMPHOCYTES #M 1.2 10^3/ul (0.8-2.9); LYMPHOCYTES % (M) 15 % (15-51); METAMYELOCYTES %M 1 % (0-0); MICROCYTOSIS 2+ (0-0); MONOCYTE #M 0.9 10^3/ul (0.3-0.9); MONOCYTES % (M) 12 % (0-11); PLATELET ESTIMATE SIG DECREASED; SEG NEUT #M 4.6 10^3/ul (1.6-7.5); SEGMENTED NEUTROPHILS (M) % 56 % (39-77); SMUDGE%M 4 % (0-0)
[2018-02-10] MEDS: COLLAGENASE 5 GM (UD JAR) TOP (12:00)
[2018-02-10] MEDS: ONDANSETRON 4 MG INJ IV (19:47)
[2018-02-11] MEDS: HYDROmorphONE 0.5 MG/0.5 ML SYG IV ×7 (00:12→22:30)
[2018-02-11] MEDS: hydrOXYzine HCL 25 MG TAB PO (05:30)
[2018-02-11] MEDS: DOCUSATE SODIUM 100 MG CAP PO ×2 (08:34→20:26)
[2018-02-11] MEDS: COLLAGENASE 5 GM (UD JAR) TOP (08:34)
[2018-02-11] MEDS: MULTIVITAMINS THERAPEUTIC TAB PO (08:34)
[2018-02-11] MEDS: morphine (ER) 30 MG TAB PO ×2 (08:35→20:26)
[2018-02-11] MEDS ORDERED: HYDROmorphONE 0.5 MG/0.5 ML SYG IV (11:50)
[2018-02-11 12:31] LABS: ABNORMAL IP MESSAGE 1; HEMATOCRIT 22.6 % (37.0-47.0); HEMOGLOBIN 7.3 g/dl (12.0-16.0); MEAN CORPUSCULAR HEMOGLOBIN 28.4 pg (29.0-33.0); MEAN CORPUSCULAR HGB CONC 32.3 g/dl (32.0-37.0); MEAN CORPUSCULAR VOLUME 87.9 fl (82.0-101.0); PLATELET COUNT 77 10^3/UL (140-415); RED BLOOD COUNT 2.57 10^6/ul (4.20-5.40); RED CELL DISTRIBUTION WIDTH 15.9 % (11.5-14.5)
[2018-02-11 12:36] LABS: ADD MAN DIFF? YES; POSITIVE DIFF @See below
[2018-02-11 13:03] LABS: LACTIC ACID 1.8 mmol/L (0.5-2.0)
[2018-02-11 13:09] LABS: ANION GAP 8 (8-16); BLOOD UREA NITROGEN 7 mg/dl (7-20); CALCIUM 7.2 mg/dl (8.4-10.2); CARBON DIOXIDE 27 mmol/L (21-31); CHLORIDE 98 mmol/L (97-110); CREATININE 0.47 mg/dl (0.44-1.00); GLUCOSE 95 mg/dl (70-220); POTASSIUM 4.1 mmol/L (3.5-5.1); SODIUM 129 mmol/L (135-144)
[2018-02-11 13:57] LABS: ANISOCYTOSIS 2+ (0-0); BAND NEUTROPHILS #M 0.9 10^3/ul (0.0-0.6); BAND NEUTROPHILS % (M) 12 % (0-4); EOSINOPHILS % (M) 4 % (0-7); LYMPHOCYTES #M 0.9 10^3/ul (0.8-2.9); LYMPHOCYTES % (M) 12 % (15-51); METAMYELOCYTES %M 1 % (0-0); MICROCYTOSIS 2+ (0-0); MONOCYTE #M 1.2 10^3/ul (0.3-0.9); MONOCYTES % (M) 15 % (0-11); PLATELET ESTIMATE SIG DECREASED; POLYCHROMASIA 3+ (0-0); SEG NEUT #M 4.6 10^3/ul (1.6-7.5); SEGMENTED NEUTROPHILS (M) % 56 % (39-77); SMUDGE%M 2 % (0-0)
[2018-02-11 14:55] LABS: ADD UMIC YES; UR ASCORBIC ACID 20 mg/dL (NEGATIVE); UR BILIRUBIN (Dip) NEGATIVE (NEGATIVE); UR BLOOD (Dip) NEGATIVE (NEGATIVE); UR CLARITY CLEAR (CLEAR); UR COLOR YELLOW (YELLOW); UR GLUCOSE (Dip) NEGATIVE (NEGATIVE); UR KETONES (Dip) NEGATIVE (NEGATIVE); UR LEUKOCYTE ESTERASE (Dip) NEGATIVE Leu/ul (NEGATIVE); UR NITRITE (Dip) NEGATIVE (NEGATIVE); UR RBC 1 /HPF (0-5); UR SPECIFIC GRAVITY (Dip) 1.018 (1.003-1.030); UR TOTAL PROTEIN (Dip) 1+ mg/dl (NEGATIVE); UR UROBILINOGEN (Dip) 1+ mg/dL (NEGATIVE); UR WBC 3 /HPF (0-5)
[2018-02-11] MEDS: METHYLPREDNISOLONE 125 MG INJ IV (16:31)
[2018-02-12] MEDS: HYDROmorphONE 0.5 MG/0.5 ML SYG IV ×6 (00:30→20:49)
[2018-02-12 05:47] LABS: WHITE BLOOD COUNT 8.9 10^3/ul (4.8-10.8)
[2018-02-12 05:47] LABS: ABNORMAL IP MESSAGE 1; HEMATOCRIT 25.4 % (37.0-47.0); HEMOGLOBIN 8.3 g/dl (12.0-16.0); MEAN CORPUSCULAR HEMOGLOBIN 28.6 pg (29.0-33.0); MEAN CORPUSCULAR HGB CONC 32.7 g/dl (32.0-37.0); MEAN CORPUSCULAR VOLUME 87.6 fl (82.0-101.0); MEAN PLATELET VOLUME 9.9 fl (7.4-10.4); PLATELET COUNT 130 10^3/UL (140-415); RED CELL DISTRIBUTION WIDTH 15.5 % (11.5-14.5)
[2018-02-12] MEDS: METHYLPREDNISOLONE 125 MG INJ IV ×2 (06:04→22:55)
[2018-02-12 06:12] LABS: PHOSPHORUS 3.4 mg/dl (2.5-4.9)
[2018-02-12 06:12] LABS: MAGNESIUM 1.8 mg/dl (1.7-2.5)
[2018-02-12 06:19] LABS: ANION GAP 11 (8-16); BLOOD UREA NITROGEN 8 mg/dl (7-20); CALCIUM 7.7 mg/dl (8.4-10.2); CARBON DIOXIDE 26 mmol/L (21-31); CHLORIDE 99 mmol/L (97-110); CREATININE 0.41 mg/dl (0.44-1.00); GLUCOSE 140 mg/dl (70-220); POTASSIUM 4.4 mmol/L (3.5-5.1); SODIUM 132 mmol/L (135-144)
[2018-02-12 06:26] LABS: ADD MAN DIFF? YES; POSITIVE DIFF @See below
[2018-02-12] MEDS: MULTIVITAMINS THERAPEUTIC TAB PO (08:44)
[2018-02-12] MEDS: DOCUSATE SODIUM 100 MG CAP PO ×2 (08:44→20:49)
[2018-02-12] MEDS: morphine (ER) 30 MG TAB PO ×2 (08:44→20:48)
[2018-02-12] MEDS: COLLAGENASE 5 GM (UD JAR) TOP (08:49)
[2018-02-12 10:06] LABS: ANISOCYTOSIS 2+ (0-0); BAND NEUTROPHILS #M 0.7 10^3/ul (0.0-0.6); BAND NEUTROPHILS % (M) 8 % (0-4); GIANT THROMBO% (M) 1 % (0-0); LYMPHOCYTES #M 0.6 10^3/ul (0.8-2.9); LYMPHOCYTES % (M) 7 % (15-51); METAMYELOCYTES %M 1 % (0-0); MICROCYTOSIS 2+ (0-0); MONOCYTE #M 0.1 10^3/ul (0.3-0.9); MONOCYTES % (M) 2 % (0-11); MYELOCYTES #M 0.1 10^3/ul (0.0-0.0); MYELOCYTES % (M) 2 % (0-0); PLATELET ESTIMATE DECREASED; POLYCHROMASIA 3+ (0-0); SEG NEUT #M 7.2 10^3/ul (1.6-7.5); SEGMENTED NEUTROPHILS (M) % 80 % (39-77); SMUDGE%M 3 % (0-0)
[2018-02-12] MEDS: ONDANSETRON 4 MG INJ IV (14:42)
[2018-02-13] MEDS: HYDROmorphONE 0.5 MG/0.5 ML SYG IV ×7 (00:27→22:06)
[2018-02-13] MEDS: METHYLPREDNISOLONE 125 MG INJ IV ×2 (05:30→23:24)
[2018-02-13] MEDS: morphine (ER) 30 MG TAB PO ×2 (08:32→22:14)
[2018-02-13] MEDS: MULTIVITAMINS THERAPEUTIC TAB PO (08:32)
[2018-02-13] MEDS: DOCUSATE SODIUM 100 MG CAP PO ×2 (08:32→22:14)
[2018-02-13] MEDS: COLLAGENASE 5 GM (UD JAR) TOP (08:33)
[2018-02-13 10:49] LABS: WHITE BLOOD COUNT 8.9 10^3/ul (4.8-10.8)
[2018-02-13 10:49] LABS: ABNORMAL IP MESSAGE 1; HEMATOCRIT 27.6 % (37.0-47.0); HEMOGLOBIN 8.8 g/dl (12.0-16.0); MEAN CORPUSCULAR HEMOGLOBIN 28.3 pg (29.0-33.0); MEAN CORPUSCULAR HGB CONC 31.9 g/dl (32.0-37.0); MEAN CORPUSCULAR VOLUME 88.7 fl (82.0-101.0); PLATELET COUNT 214 10^3/UL (140-415); RED BLOOD COUNT 3.11 10^6/ul (4.20-5.40); RED CELL DISTRIBUTION WIDTH 15.5 % (11.5-14.5)
[2018-02-13 10:54] LABS: ADD MAN DIFF? YES; POSITIVE DIFF @See below
[2018-02-13 11:39] LABS: ANION GAP 7 (8-16); BLOOD UREA NITROGEN 9 mg/dl (7-20); CALCIUM 7.5 mg/dl (8.4-10.2); CARBON DIOXIDE 28 mmol/L (21-31); CHLORIDE 105 mmol/L (97-110); CREATININE 0.44 mg/dl (0.44-1.00); GLUCOSE 138 mg/dl (70-220); POTASSIUM 4.4 mmol/L (3.5-5.1); SODIUM 136 mmol/L (135-144)
[2018-02-13 12:01] LABS: ANISOCYTOSIS 2+ (0-0); BAND NEUTROPHILS #M 1.3 10^3/ul (0.0-0.6); BAND NEUTROPHILS % (M) 15 % (0-4); LYMPHOCYTES #M 0.5 10^3/ul (0.8-2.9); LYMPHOCYTES % (M) 6 % (15-51); MICROCYTOSIS 2+ (0-0); MONOCYTE #M 0.3 10^3/ul (0.3-0.9); MONOCYTES % (M) 4 % (0-11); MYELOCYTES % (M) 1 % (0-0); PLATELET ESTIMATE NORMAL; POIKILOCYTOSIS 2+ (0-0); POLYCHROMASIA 3+ (0-0); REACTIVE LYMPHOCYTES% (M) 1 % (0-0); SEG NEUT #M 6.6 10^3/ul (1.6-7.5); SEGMENTED NEUTROPHILS (M) % 73 % (39-77); SMUDGE%M 8 % (0-0)
[2018-02-13] MEDS: ONDANSETRON 4 MG INJ IV ×2 (14:25→23:34)
[2018-02-14] MEDS: HYDROmorphONE 0.5 MG/0.5 ML SYG IV ×6 (02:21→21:36)
[2018-02-14 06:04] LABS: ABNORMAL IP MESSAGE 1; HEMATOCRIT 15.5 % (37.0-47.0); MEAN CORPUSCULAR HEMOGLOBIN 29.4 pg (29.0-33.0); MEAN CORPUSCULAR HGB CONC 32.3 g/dl (32.0-37.0); MEAN CORPUSCULAR VOLUME 91.2 fl (82.0-101.0); MEAN PLATELET VOLUME 9.4 fl (7.4-10.4); NUCLEATED RED BLOOD CELLS% 0.1 /100WBC (0.0-0.0); PLATELET COUNT 356 10^3/UL (140-415); RED CELL DISTRIBUTION WIDTH 15.7 % (11.5-14.5)
[2018-02-14 06:04] LABS: WHITE BLOOD COUNT 13.6 10^3/ul (4.8-10.8)
[2018-02-14 06:25] LABS: POSITIVE DIFF @See below
[2018-02-14 06:28] LABS: ADD MAN DIFF? YES
[2018-02-14 06:37] LABS: BLOOD UREA NITROGEN 11 mg/dl (7-20); CALCIUM 7.7 mg/dl (8.4-10.2); CARBON DIOXIDE 28 mmol/L (21-31); CREATININE 0.45 mg/dl (0.44-1.00); GLUCOSE 109 mg/dl (70-220); MAGNESIUM 1.9 mg/dl (1.7-2.5); PHOSPHORUS 2.6 mg/dl (2.5-4.9)
[2018-02-14 07:04] LABS: HEMOGLOBIN 9.4 g/dl (12.0-16.0)
[2018-02-14 07:04] LABS: HEMATOCRIT 29.9 % (37.0-47.0)
[2018-02-14 07:42] LABS: ANION GAP 9 (8-16)
[2018-02-14 07:58] LABS: POTASSIUM 4.8 mmol/L (3.5-5.1); SODIUM 139 mmol/L (135-144)
[2018-02-14 07:59] LABS: CHLORIDE 107 mmol/L (97-110)
[2018-02-14] MEDS: DOCUSATE SODIUM 100 MG CAP PO ×2 (08:45→22:40)
[2018-02-14] MEDS: ONDANSETRON 4 MG INJ IV ×2 (08:45→21:34)
[2018-02-14] MEDS: MULTIVITAMINS THERAPEUTIC TAB PO (08:45)
[2018-02-14] MEDS: COLLAGENASE 5 GM (UD JAR) TOP (08:49)
[2018-02-14] MEDS: morphine (ER) 30 MG TAB PO ×2 (08:52→22:40)
[2018-02-14 10:21] LABS: BAND NEUTROPHILS #M 0.8 10^3/ul (0.0-0.6); BAND NEUTROPHILS % (M) 6 % (0-4); EOSINOPHILS # 1.4 10^3/ul (0.0-0.5); EOSINOPHILS % (M) 10 % (0.0-7.0); LYMPHOCYTES # 2.2 10^3/ul (0.8-2.9); LYMPHOCYTES #M 2.1 10^3/ul (0.8-2.9); LYMPHOCYTES % (M) 16 % (15-51); METAMYELOCYTES #M 0.6 10^3/ul (0.0-0.0); METAMYELOCYTES %M 5 % (0-0); MONOCYTE # 0.5 10^3/ul (0.3-0.9); MONOCYTE #M 0.5 10^3/ul (0.3-0.9); MONOCYTES % (M) 4 % (0-11); MYELOCYTES #M 0.4 10^3/ul (0.0-0.0); MYELOCYTES % (M) 3 % (0-0); PROMYELOCYTES #M 0.1 10^3/ul (0-0); PROMYELOCYTES % (M) 1 % (0-0); SEG NEUT #M 7.6 10^3/ul (1.7-7.5); SEGMENTED NEUTROPHILS (M) % 55 % (39-77)
[2018-02-14 10:24] LABS: ANISOCYTOSIS 1+ (0-0); POLYCHROMASIA OCCASIONAL (0-0)
[2018-02-14 10:25] LABS: PLATELET ESTIMATE NORMAL
[2018-02-14] MEDS: DIPHENHYDRAMINE 50 MG INJ IV ×2 (12:07→18:18)
[2018-02-14] MEDS: METHYLPREDNISOLONE 125 MG INJ IV (22:00)
[2018-02-15] MEDS: HYDROmorphONE 0.5 MG/0.5 ML SYG IV ×6 (01:32→23:11)
[2018-02-15] MEDS: DIPHENHYDRAMINE 50 MG INJ IV ×2 (01:32→07:47)
[2018-02-15] MEDS: FAMOTIDINE 20 MG TAB PO (05:44)
[2018-02-15] MEDS: METHYLPREDNISOLONE 125 MG INJ IV ×3 (05:45→23:06)
[2018-02-15 05:59] LABS: WHITE BLOOD COUNT 12.4 10^3/ul (4.8-10.8)
[2018-02-15 05:59] LABS: ABNORMAL IP MESSAGE 1; HEMATOCRIT 25.4 % (37.0-47.0); HEMOGLOBIN 8.1 g/dl (12.0-16.0); MEAN CORPUSCULAR HEMOGLOBIN 28.9 pg (29.0-33.0); MEAN CORPUSCULAR HGB CONC 31.9 g/dl (32.0-37.0); MEAN CORPUSCULAR VOLUME 90.7 fl (82.0-101.0); NUCLEATED RED BLOOD CELLS% 0.5 /100WBC (0.0-0.0); PLATELET COUNT 332 10^3/UL (140-415); RED CELL DISTRIBUTION WIDTH 16.4 % (11.5-14.5)
[2018-02-15 06:08] LABS: ADD MAN DIFF? YES; POSITIVE DIFF @See below
[2018-02-15] MEDS: morphine (ER) 30 MG TAB PO ×2 (09:23→20:49)
[2018-02-15] MEDS: DOCUSATE SODIUM 100 MG CAP PO ×2 (09:23→20:49)
[2018-02-15] MEDS: MULTIVITAMINS THERAPEUTIC TAB PO (09:23)
[2018-02-15] MEDS: COLLAGENASE 5 GM (UD JAR) TOP (09:23)
[2018-02-15] MEDS: ONDANSETRON 4 MG INJ IV (11:28)
[2018-02-15] MEDS: hydrOXYzine HCL 25 MG TAB PO ×2 (13:35→20:49)
[2018-02-15 13:53] LABS: ANISOCYTOSIS 1+ (0-0); BAND NEUTROPHILS #M 2.8 10^3/ul (0.0-0.6); BAND NEUTROPHILS % (M) 23 % (0-4); EOSINOPHILS % (M) 5 % (0-7); LYMPHOCYTES #M 1.1 10^3/ul (0.8-2.9); LYMPHOCYTES % (M) 9 % (15-51); METAMYELOCYTES #M 0.3 10^3/ul (0.0-0.0); METAMYELOCYTES %M 3 % (0-0); MONOCYTE #M 0.9 10^3/ul (0.3-0.9); MONOCYTES % (M) 8 % (0-11); MYELOCYTES #M 0.8 10^3/ul (0.0-0.0); MYELOCYTES % (M) 7 % (0-0); PLATELET ESTIMATE NORMAL; POIKILOCYTOSIS 1+ (0-0); POLYCHROMASIA 1+ (0-0); SEG NEUT #M 5.9 10^3/ul (1.6-7.5); SEGMENTED NEUTROPHILS (M) % 45 % (39-77); SMUDGE%M 9 % (0-0)
[2018-02-15] MEDS: ALTEPLASE (CATHFLO) 2 MG INJ CATHETER (15:10)
[2018-02-16] MEDS: HYDROmorphONE 0.5 MG/0.5 ML SYG IV ×6 (02:54→22:58)
[2018-02-16] MEDS: ONDANSETRON 4 MG INJ IV ×2 (04:20→10:22)
[2018-02-16] MEDS: hydrOXYzine HCL 25 MG TAB PO ×2 (04:20→20:53)
[2018-02-16] MEDS: LORATADINE 10 MG TAB PO (09:08)
[2018-02-16] MEDS: MULTIVITAMINS THERAPEUTIC TAB PO (09:08)
[2018-02-16] MEDS: FAMOTIDINE 20 MG TAB PO (09:08)
[2018-02-16] MEDS: DOCUSATE SODIUM 100 MG CAP PO ×2 (09:09→20:51)
[2018-02-16] MEDS: COLLAGENASE 5 GM (UD JAR) TOP (09:09)
[2018-02-16] MEDS: morphine (ER) 30 MG TAB PO ×2 (09:09→20:51)
[2018-02-17] MEDS: ONDANSETRON 4 MG INJ IV ×3 (00:20→18:58)
[2018-02-17] MEDS: METHYLPREDNISOLONE 125 MG INJ IV (00:24)
[2018-02-17] MEDS: HYDROmorphONE 0.5 MG/0.5 ML SYG IV ×7 (03:04→23:03)
[2018-02-17] MEDS: LORATADINE 10 MG TAB PO (08:42)
[2018-02-17] MEDS: DOCUSATE SODIUM 100 MG CAP PO ×2 (08:42→21:09)
[2018-02-17] MEDS: MULTIVITAMINS THERAPEUTIC TAB PO (08:42)
[2018-02-17] MEDS: morphine (ER) 30 MG TAB PO ×2 (08:43→21:09)
[2018-02-17] MEDS: FAMOTIDINE 20 MG TAB PO (08:43)
[2018-02-17] MEDS: COLLAGENASE 5 GM (UD JAR) TOP (08:43)
[2018-02-18] MEDS: ONDANSETRON 4 MG INJ IV ×3 (00:27→21:39)
[2018-02-18] MEDS: hydrOXYzine HCL 25 MG TAB PO ×2 (00:48→20:36)
[2018-02-18] MEDS: COLLAGENASE 5 GM (UD JAR) TOP ×2 (00:51→09:00)
[2018-02-18] MEDS: HYDROmorphONE 0.5 MG/0.5 ML SYG IV ×7 (03:37→21:32)
[2018-02-18 05:33] LABS: ABNORMAL IP MESSAGE 1; HEMATOCRIT 26.7 % (37.0-47.0); HEMOGLOBIN 8.3 g/dl (12.0-16.0); MEAN CORPUSCULAR HEMOGLOBIN 29.2 pg (29.0-33.0); MEAN CORPUSCULAR HGB CONC 31.1 g/dl (32.0-37.0); MEAN PLATELET VOLUME 8.7 fl (7.4-10.4); NUCLEATED RED BLOOD CELLS% 0.3 /100WBC (0.0-0.0); PLATELET COUNT 338 10^3/UL (140-415); RED BLOOD COUNT 2.84 10^6/ul (4.20-5.40); RED CELL DISTRIBUTION WIDTH 18.3 % (11.5-14.5)
[2018-02-18 05:33] LABS: WHITE BLOOD COUNT 23.9 10^3/ul (4.8-10.8)
[2018-02-18 05:39] LABS: ADD MAN DIFF? YES; POSITIVE DIFF @See below
[2018-02-18 08:16] LABS: ANISOCYTOSIS 1+ (0-0); BAND NEUTROPHILS #M 1.4 10^3/ul (0.0-0.6); BAND NEUTROPHILS % (M) 6 % (0-4); BASOPHIL #M 0.2 10^3/ul (0.0-0.0); BASOPHILS % (M) 1 % (0-2); EOSINOPHILS % (M) 19 % (0-7); LYMPHOCYTES #M 4.3 10^3/ul (0.8-2.9); LYMPHOCYTES % (M) 18 % (15-51); MICROCYTOSIS 1+ (0-0); MONOCYTE #M 3.1 10^3/ul (0.3-0.9); MONOCYTES % (M) 13 % (0-11); MYELOCYTES #M 3.1 10^3/ul (0.0-0.0); MYELOCYTES % (M) 13 % (0-0); PLATELET ESTIMATE NORMAL; POLYCHROMASIA 1+ (0-0); SEG NEUT #M 7.5 10^3/ul (1.6-7.5); SEGMENTED NEUTROPHILS (M) % 30 % (39-77); SMUDGE%M 10 % (0-0)
[2018-02-18] MEDS: DOCUSATE SODIUM 100 MG CAP PO ×2 (09:11→20:20)
[2018-02-18] MEDS: MULTIVITAMINS THERAPEUTIC TAB PO (09:12)
[2018-02-18] MEDS: FAMOTIDINE 20 MG TAB PO (09:12)
[2018-02-18] MEDS: morphine (ER) 30 MG TAB PO ×2 (09:13→20:21)
[2018-02-18] MEDS: LORATADINE 10 MG TAB PO (09:13)
[2018-02-18] MEDS ORDERED: SOD CHLORIDE 0.9% 100 ML (15:37)
[2018-02-18] MEDS ORDERED: IOHEXOL 300MG/ML 150 ML BTL (15:37)
[2018-02-19] MEDS: HYDROmorphONE 0.5 MG/0.5 ML SYG IV ×8 (02:15→23:53)
[2018-02-19] MEDS: hydrOXYzine HCL 25 MG TAB PO (05:07)
[2018-02-19 05:29] LABS: ABNORMAL IP MESSAGE 1; HEMATOCRIT 29.1 % (37.0-47.0); HEMOGLOBIN 9.3 g/dl (12.0-16.0); MEAN CORPUSCULAR HEMOGLOBIN 29.2 pg (29.0-33.0); MEAN CORPUSCULAR VOLUME 91.5 fl (82.0-101.0); MEAN PLATELET VOLUME 8.5 fl (7.4-10.4); NUCLEATED RED BLOOD CELLS% 0.2 /100WBC (0.0-0.0); PLATELET COUNT 305 10^3/UL (140-415); RED BLOOD COUNT 3.18 10^6/ul (4.20-5.40); RED CELL DISTRIBUTION WIDTH 18.7 % (11.5-14.5)
[2018-02-19 05:29] LABS: WHITE BLOOD COUNT 42.1 10^3/ul (4.8-10.8)
[2018-02-19 06:00] LABS: ANION GAP 5 (8-16); BLOOD UREA NITROGEN 11 mg/dl (7-20); CALCIUM 7.3 mg/dl (8.4-10.2); CARBON DIOXIDE 29 mmol/L (21-31); CHLORIDE 105 mmol/L (97-110); CREATININE 0.53 mg/dl (0.44-1.00); GLUCOSE 108 mg/dl (70-220); MAGNESIUM 1.6 mg/dl (1.7-2.5); POTASSIUM 4.1 mmol/L (3.5-5.1); SODIUM 135 mmol/L (135-144)
[2018-02-19 06:11] LABS: POSITIVE DIFF @See below
[2018-02-19 06:12] LABS: ADD MAN DIFF? YES
[2018-02-19] MEDS: ONDANSETRON 4 MG INJ IV ×2 (07:15→15:30)
[2018-02-19] MEDS: morphine (ER) 30 MG TAB PO ×2 (08:35→20:57)
[2018-02-19] MEDS: DOCUSATE SODIUM 100 MG CAP PO (08:35)
[2018-02-19] MEDS: FAMOTIDINE 20 MG TAB PO (08:36)
[2018-02-19] MEDS: LORATADINE 10 MG TAB PO (08:36)
[2018-02-19] MEDS: COLLAGENASE 5 GM (UD JAR) TOP (08:36)
[2018-02-19] MEDS: MULTIVITAMINS THERAPEUTIC TAB PO (08:41)
[2018-02-19 10:04] LABS: ANISOCYTOSIS 2+ (0-0); BAND NEUTROPHILS #M 7.1 10^3/ul (0.0-0.6); BAND NEUTROPHILS % (M) 17 % (0-4); EOSINOPHILS % (M) 8 % (0-7); LYMPHOCYTES #M 2.5 10^3/ul (0.8-2.9); LYMPHOCYTES % (M) 6 % (15-51); METAMYELOCYTES %M 12 % (0-0); MONOCYTE #M 3.3 10^3/ul (0.3-0.9); MONOCYTES % (M) 8 % (0-11); MYELOCYTES #M 2.9 10^3/ul (0.0-0.0); MYELOCYTES % (M) 7 % (0-0); PLATELET ESTIMATE NORMAL; POLYCHROMASIA 2+ (0-0); SEG NEUT #M 21.1 10^3/ul (1.6-7.5); SEGMENTED NEUTROPHILS (M) % 43 % (39-77); SMUDGE%M 2 % (0-0); TEAR DROP CELLS 1+ (0-0); TOXIC GRANULATION 1+ (0-0)
[2018-02-19] MEDS: MAGNESIUM OXIDE 400 MG TAB PO (13:30)
[2018-02-19] MEDS: DIPHENHYDRAMINE 50 MG INJ IV ×3 (15:30→23:35)
[2018-02-19] MEDS: ACETAMINOPHEN 325 MG TAB PO (20:14)
[2018-02-19] MEDS ORDERED: IBUPROFEN 400 MG TAB PO (22:30)
[2018-02-19] MEDS: SOD CHLORIDE 0.9% 500 ML IV (22:57)
[2018-02-19] MEDS: PIPER-TAZO 3.375 GM IV (PMX) 100 ML IVPB (23:29)
[2018-02-19 23:40] LABS: LACTIC ACID 2.5 mmol/L (0.5-2.0)
[2018-02-19] MEDS ORDERED: VANCOMYCIN IV PER PHARMACY XX (23:59)
[2018-02-20] MEDS: VANCOMYCIN 1 GM 250 ML IVPB ×2 (02:03→07:36)
[2018-02-20] MEDS: HYDROmorphONE 0.5 MG/0.5 ML SYG IV ×3 (03:38→09:51)
[2018-02-20] MEDS: DIPHENHYDRAMINE 50 MG INJ IV ×4 (03:39→15:46)
[2018-02-20] MEDS: SOD CHLORIDE 0.9% 1,000 ML IV (04:57)
[2018-02-20 05:37] LABS: WHITE BLOOD COUNT 47.3 10^3/ul (4.8-10.8)
[2018-02-20 05:37] LABS: ABNORMAL IP MESSAGE 1; HEMATOCRIT 28.5 % (37.0-47.0); HEMOGLOBIN 9.2 g/dl (12.0-16.0); MEAN CORPUSCULAR HEMOGLOBIN 29.8 pg (29.0-33.0); MEAN CORPUSCULAR HGB CONC 32.3 g/dl (32.0-37.0); MEAN CORPUSCULAR VOLUME 92.2 fl (82.0-101.0); MEAN PLATELET VOLUME 8.3 fl (7.4-10.4); NUCLEATED RED BLOOD CELLS% 0.1 /100WBC (0.0-0.0); PLATELET COUNT 257 10^3/UL (140-415); RED BLOOD COUNT 3.09 10^6/ul (4.20-5.40); RED CELL DISTRIBUTION WIDTH 18.7 % (11.5-14.5)
[2018-02-20 05:39] LABS: POSITIVE DIFF @See below
[2018-02-20 05:40] LABS: ADD MAN DIFF? YES
[2018-02-20 06:08] LABS: LACTIC ACID 1.9 mmol/L (0.5-2.0)
[2018-02-20] MEDS: PIPER-TAZO 3.375 GM IV (PMX) 100 ML IVPB ×2 (06:24→12:24)
[2018-02-20 06:59] LABS: ANISOCYTOSIS 2+ (0-0); BAND NEUTROPHILS #M 9.4 10^3/ul (0.0-0.6); BAND NEUTROPHILS % (M) 20 % (0-4); EOSINOPHILS % (M) 13 % (0-7); LYMPHOCYTES #M 1.4 10^3/ul (0.8-2.9); LYMPHOCYTES % (M) 3 % (15-51); METAMYELOCYTES #M 1.8 10^3/ul (0.0-0.0); METAMYELOCYTES %M 4 % (0-0); MICROCYTOSIS 2+ (0-0); MONOCYTE #M 2.3 10^3/ul (0.3-0.9); MONOCYTES % (M) 5 % (0-11); MYELOCYTES #M 3.3 10^3/ul (0.0-0.0); MYELOCYTES % (M) 7 % (0-0); PLATELET ESTIMATE NORMAL; POLYCHROMASIA 1+ (0-0); SEG NEUT #M 27.2 10^3/ul (1.6-7.5); SEGMENTED NEUTROPHILS (M) % 48 % (39-77)
[2018-02-20] MEDS: morphine (ER) 30 MG TAB PO (09:00)
[2018-02-20] MEDS: FAMOTIDINE 20 MG TAB PO (09:51)
[2018-02-20] MEDS: MULTIVITAMINS THERAPEUTIC TAB PO (09:51)
[2018-02-20] MEDS: MAGNESIUM SULFATE 1 GM/D5W 100 ML IVPB (10:06)
[2018-02-20] MEDS: SOD CHLORIDE 0.45% 1,000 ML IV (10:06)
[2018-02-20] MEDS: COLLAGENASE 5 GM (UD JAR) TOP (10:07)
[2018-02-20] MEDS: ONDANSETRON 4 MG INJ IV ×2 (11:40→17:32)
[2018-02-20] MEDS: HYDROmorphONE 2 MG/ML SYG IV ×2 (11:40→15:46)
[2018-02-20] MEDS: LORATADINE 10 MG TAB PO (12:24)
[2018-02-20 13:00] LABS: ADD UMIC YES; UR ASCORBIC ACID 40 mg/dL (NEGATIVE); UR BACTERIA FEW /HPF (NONE SEEN); UR BILIRUBIN (Dip) NEGATIVE (NEGATIVE); UR BLOOD (Dip) NEGATIVE (NEGATIVE); UR CLARITY CLOUDY (CLEAR); UR COLOR AMBER (YELLOW); UR GLUCOSE (Dip) NEGATIVE (NEGATIVE); UR KETONES (Dip) NEGATIVE (NEGATIVE); UR LEUKOCYTE ESTERASE (Dip) 3+ Leu/ul (NEGATIVE); UR MUCUS FEW /HPF (NONE SEEN); UR NITRITE (Dip) NEGATIVE (NEGATIVE); UR NONSQUAMOUS EPITHELIAL CELL 7 /HPF (NONE SEEN); UR RBC 14 /HPF (0-5); UR SPECIFIC GRAVITY (Dip) 1.034 (1.003-1.030); UR SQUAMOUS EPITHELIAL CELL MANY /HPF (FEW); UR TOTAL PROTEIN (Dip) 1+ mg/dl (NEGATIVE); UR UROBILINOGEN (Dip) NEGATIVE (NEGATIVE); UR WBC > 182 /HPF (0-5)
[2018-02-20] MEDS: VANCOMYCIN 1.25 GM in SOD CHLORIDE 0.9% 250 ML IVPB ×2 (16:00→17:00)
== END 2018-02-20 18:09 | disposition short-term general hospital (02) | DRG 829 ==
LOC: MS1 10:50 → TEL 01-27 07:55 → MS1 02-01 19:04 → ICU 02-20 04:05 → MS1 01-25 12:14 → TEL 02-20 13:30
PROC: 0HBU0ZX Excision of Left Breast, Open Approach, Diagnostic (ICD-10-PCS; 2018-01-20 08:00)
PROC: 3E04305 Introduction of Other Antineoplastic into Central Vein, Percutaneous Approach (ICD-10-PCS; principal; 2018-01-20 09:16)
PROC: 30233N1 Transfusion of Nonautologous Red Blood Cells into Peripheral Vein, Percutaneous Approach (ICD-10-PCS; 2018-01-20 09:16)
DX: Z51.11 Encounter for antineoplastic chemotherapy (principal); E87.1 Hypo-osmolality and hyponatremia; E87.2 Acidosis; J90 Pleural effusion, not elsewhere classified; I31.3 Pericardial effusion (noninflammatory); F32.2 Major depressive disorder, single episode, severe without psychotic features; C50.912 Malignant neoplasm of unspecified site of left female breast; F41.9 Anxiety disorder, unspecified; D64.81 Anemia due to antineoplastic chemotherapy; D63.0 Anemia in neoplastic disease; J45.909 Unspecified asthma, uncomplicated; D69.59 Other secondary thrombocytopenia; D72.829 Elevated white blood cell count, unspecified; D50.0 Iron deficiency anemia secondary to blood loss (chronic); R00.0 Tachycardia, unspecified; R74.0 Nonspecific elevation of levels of transaminase and lactic acid dehydrogenase [LDH]; N64.1 Fat necrosis of breast; Z91.19 Patient's noncompliance with other medical treatment and regimen; T45.0X5A Adverse effect of antiallergic and antiemetic drugs, initial encounter; T45.1X5A Adverse effect of antineoplastic and immunosuppressive drugs, initial encounter
CPT/HCPCS: 36430; 71045; 71260; 71275; 80048; 80053; 81001; 82533; 82540; 83605; 83735; 83930; 83935; 84100; 84155; 84300; 84443; 84702; 84703; 85014; 85018; 85025; 85610; 85730; 86644; 86850; 86900; 86901; 86920; 86945; 87040; 87070; 87086; 88307; 88331; 88341; 88342; 89190; 93005; 93308; 93970; J9045; J9201; J9209

== ENCOUNTER → 2018-12-01 | Outpatient (CLI) | payer OTHER | END | disposition home or self-care (01) | LOC: RAD 11:23 | DX: Z45.2 Encounter for adjustment and management of vascular access device (principal); C49.9 Malignant neoplasm of connective and soft tissue, unspecified | CPT/HCPCS: 36569; 71045; 76937 ==